=== PATIENT | female | born 1950 | race Caucasian/White ===

== ENCOUNTER → 2016-09-17 | Outpatient (CLI) | payer MEDICARE, BC ==
--- NOTE | 2016-09-20 07:42 | MM ---
Reason for exam: additional evaluation requested from prior study. Last mammogram was performed 1 year ago. History: Patient is postmenopausal, has history of other cancer at age 53, and is nulliparous. Family history of breast cancer in maternal aunt at age 60, breast cancer in maternal cousin at age 34, and breast cancer in sister at age 52. Benign excisional biopsy of the right breast, 2015. Benign excisional biopsy of the right breast, May 2014. Benign ultrasound-guided core biopsy of the left breast, 2012. Took estrogen for 29 years beginning at age 30. Physical Findings: Nurse Summary: 1cm nodule in the left breast at 10/1 o'clock (nurse mm). MG 3D Diag Mammo W/Cad KATINA Bilateral CC and MLO view(s) were taken. Prior study comparison: September 10, 2015, bilateral MG 3d diag mammo w/cad KATINA. February 18, 2015, bilateral MG 3d diag mammo w/cad KATINA. The breast tissue is heterogeneously dense. This may lower the sensitivity of mammography. Finding: There are regional calcifications in the left breast. There is a chronic nodularity in the right breast. No significant changes in finding since September 10, 2015 and February 18, 2015. These results were verbally communicated with the patient and result sheet given to the patient on 09/17/16. ASSESSMENT: Incomplete: need additional imaging evaluation, BI-RAD 0 RECOMMENDATION: Ultrasound of both breasts.
--- NOTE | 2016-09-20 07:46 | USB ---
Reason for exam: additional evaluation requested from abnormal screening. History: Patient is postmenopausal, has history of other cancer at age 53, and is nulliparous. Family history of breast cancer in maternal aunt at age 60, breast cancer in maternal cousin at age 34, and breast cancer in sister at age 52. Benign excisional biopsy of the right breast, 2016. Benign excisional biopsy of the right breast, May 2014. Benign ultrasound-guided core biopsy of the left breast, 2012. Took estrogen for 29 years beginning at age 30. US Breast Limited BILAT Right breast ultrasound demonstrates at 4mm cystic lesion at 12 o'clock, a 3mm cystic lesion at 6 o'clock and a 18 x 20 x 17mm strongly shadowing tissue at 7 o'clock for which a biopsy is recommended. Left breast ultrasound demonstrates a 21 x 9 x 23mm lipoma at 9 o'clock, a 6 x 4 x 4mm lesion too small to characterize at 10 o'clock, a 4mm lesion too small to characterize at 11 o'clock and a 6 x 6 x 7mm cystic lesion at 1-2 o'clock. These results were verbally communicated with the patient and result sheet given to the patient on 09/17/16. ASSESSMENT: Suspicious, BI-RAD 4 RECOMMENDATION: Ultrasound core biopsy of the right breast. Called Dr. Johnson with mammographic findings and has scheduled an appointment for the patient for 09/21/16 at 1:[address] Murphy. PRELIMINARY REPORT CALLED AND FAXED TO DR. MURPHY ON 09/20/16 AT 300/TP.
== END | disposition home or self-care (01) ==
LOC: RADMAMWWP 12:46
PROVIDERS: ATTEND Family Medicine
DX: R92.8 Other abnormal and inconclusive findings on diagnostic imaging of breast (principal)
CPT/HCPCS: 76642; G0204; G0279

== ENCOUNTER 2016-09-19 09:42 | Emergency (ER) | payer MEDICARE, BC ==
[2016-09-19 10:00] VITALS: RESP 18; TEMP 97.9
[2016-09-19] MEDS ORDERED: HYDROcodone/APAP 5-325MG 1 EACH TAB PO STA (10:51)
[2016-09-19] MEDS ORDERED: KETOROLAC 60 MG/2 ML VIAL IM STA (10:52)
--- NOTE | 2016-09-19 11:00 | ED ---
General Adult HPI - General Chief complaint: Extremity Injury, Lower Stated complaint: left hip pain Time Seen by Provider: 09/19/16 10:35 Source: patient, RN notes reviewed, old records reviewed Mode of arrival: wheelchair Limitations: no limitations - History of Present Illness Initial comments: This is a 58-year-old female ER for evaluation of hip pain. Patient left hip pain. If his strong history of arthritis, has had bilateral hips replaced. Neither deny this hospital. Patient has no follow-up with orthopedics at this time. Patient states the change of weather he does have full range of motion fever - Related Data Home Medications Medication Instructions Recorded Confirmed Aspirin 81 mg PO DAILY 09/19/16 09/19/16 Atorvastatin Calcium [Lipitor] 20 mg PO HS 09/19/16 09/19/16 Biotin 10 mg PO DAILY 09/19/16 09/19/16 Cetirizine HCl [Zyrtec] 10 mg PO DAILY 09/19/16 09/19/16 Cholecalciferol [Vitamin D3] 5,000 unit PO DAILY 09/19/16 09/19/16 Cyanocobalamin [Vitamin B-12] 500 mcg PO BID 09/19/16 09/19/16 Krill/[place]-3/Dha/Epa/Lipids 1 cap PO DAILY 09/19/16 09/19/16 [Krill Oil 300 mg Softgel] Losartan/Hydrochlorothiazide 1 tab PO DAILY 09/19/16 09/19/16 [Losartan-Hctz 100-25 mg Tab] Metoprolol Succinate [Toprol XL] 200 mg PO DAILY 09/19/16 09/19/16 Pioglitazone [Actos] 30 mg PO DAILY 09/19/16 09/19/16 Prazosin [Minipress] 1 mg PO BID 09/19/16 09/19/16 metFORMIN HCL [Metformin HCl] 500 mg PO BID 09/19/16 09/19/16 Previous Rx's Medication Instructions Recorded HYDROcodone/APAP 5-325MG [[place] 1 tab PO Q6HR PRN #30 tab 09/19/16 5-325] Allergies Allergy/AdvReac Type Severity Reaction Status Date / Time Penicillins Allergy Swelling Verified 09/19/16 10:20 Review of Systems ROS Statement: Those systems with pertinent positive or pertinent negative responses have been documented in the HPI. ROS Other: All systems not noted in ROS Statement are negative. Past Medical History Past Medical History: Diabetes Mellitus, GERD/Reflux, Hypertension History of Any Multi-Drug Resistant Organisms: None Reported Past Surgical History: Hysterectomy, Joint Replacement Additional Past Surgical History / Comment(s): right and left hip, right breast lumpectomy (benign) Past Psychological History: No Psychological Hx Reported Smoking Status: Never smoker Past Alcohol Use History: None Reported Past Drug Use History: None Reported General Exam Limitations: no limitations General appearance: alert, in no apparent distress Head exam: Present: atraumatic, normocephalic, normal inspection Eye exam: Present: normal appearance, PERRL, EOMI. Absent: scleral icterus, conjunctival injection, periorbital swelling ENT exam: Present: normal exam, mucous membranes moist Neck exam: Present: normal inspection. Absent: tenderness, meningismus, lymphadenopathy Respiratory exam: Present: normal lung sounds bilaterally. Absent: respiratory distress, wheezes, rales, rhonchi, stridor Cardiovascular Exam: Present: regular rate, normal rhythm, normal heart sounds. Absent: systolic murmur, diastolic murmur, rubs, gallop, clicks GI/Abdominal exam: Present: soft, normal bowel sounds. Absent: distended, tenderness, guarding, rebound, rigid Extremities exam: Present: normal inspection, full ROM, normal capillary refill. Absent: tenderness, pedal edema, joint swelling, calf tenderness Back exam: Present: normal inspection Neurological exam: Present: alert, oriented X3, CN II-XII intact Psychiatric exam: Present: normal affect, normal mood Skin exam: Present: warm, dry, intact, normal color. Absent: rash Course Vital Signs 09/19/16 09/19/16 09:57 12:08 Temperature 97.9 F 97.9 F Pulse Rate 84 79 Respiratory 18 18 Rate Blood Pressure 135/62 149/66 O2 Sat by Pulse 96 97 Oximetry - Reevaluation(s) Reevaluation #1: 09/19/16 12:54 At this point patient's pain is controlled, discussed the patient to continue follow-up appointment with of orthopedics this Tuesday. Medical Decision Making - Medical Decision Making 66 female here for evaluation of hip pain, she has history of bilateral hip pain , history of arthritis. Both left and right hip pain at this time. No trauma. No fevers. Patient has negative x-ray, will follow-up with orthopedics as scheduled on Tuesday Disposition Clinical Impression: Arthritis of left hip, S/P hip replacement Disposition: HOME SELF-CARE Condition: Good Instructions: Arthralgia (ED), Hip Pain (ED) Prescriptions: HYDROcodone/APAP 5-325MG [[place] 5-325] 1 tab PO Q6HR PRN #30 tab PRN Reason: Pain Referrals: Anupama Johnson MD [Primary Care Provider] - 1-2 days
--- NOTE | 2016-09-19 11:13 | XR ---
EXAMINATION TYPE: XR Hip Complete LT DATE OF EXAM: 09/19/2016 CLINICAL HISTORY: Progressive left hip pain. TECHNIQUE: AP and frogleg views of the left hip are obtained. COMPARISON: None. FINDINGS: There is no acute fracture/dislocation evident in the left hip. Metallic artifact from lef t hip arthroplasty is satisfactory in position. Slightly more prominent lucency superior lateral aspe ct of acetabulum noted measuring up to 6 mm in thickness. Femoral component shows no suspicious surro unding lucency. Left-sided pelvic phleboliths are noted. IMPRESSION: There is no acute fracture or dislocation in the left hip. Asymmetric superolateral acet abular lucency, cannot exclude loosening. Correlate with old outside postoperative films advised to s ee if this is new finding.
[2016-09-19 12:10] VITALS: BP 149/66; PULSE 79
== END 2016-09-19 12:07 | disposition home or self-care (01) ==
LOC: EC 09:42
DX: M13.852 Other specified arthritis, left hip (principal); E11.9 Type 2 diabetes mellitus without complications; K21.9 Gastro-esophageal reflux disease without esophagitis; I10 Essential (primary) hypertension; Z79.84 Long term (current) use of oral hypoglycemic drugs; Z79.82 Long term (current) use of aspirin; Z79.899 Other long term (current) drug therapy; Z88.0 Allergy status to penicillin; Z96.643 Presence of artificial hip joint, bilateral
CPT/HCPCS: 73502; 99283; 96372; J1885

== ENCOUNTER → 2017-04-25 | Outpatient (CLI) | payer MEDICARE, BC ==
--- NOTE | 2017-04-25 11:17 | MM ---
Reason for exam: additional evaluation requested from prior study. Last mammogram was performed 7 months ago. History: Patient is postmenopausal, has history of other cancer at age 53, and is nulliparous. Family history of breast cancer in maternal aunt at age 60, breast cancer in maternal cousin at age 34, and breast cancer in sister at age 52. Benign excisional biopsy of the right breast, 2015. Benign excisional biopsy of the right breast, May 2014. Benign ultrasound-guided core biopsy of the left breast, 2012. Took estrogen for 29 years beginning at age 30. Physical Findings: Nurse did not find any significant physical abnormalities on exam. MG 3D Diag Mammo W/Cad RT CC and MLO view(s) were taken of the right breast. Prior study comparison: September 17, 2016, bilateral MG 3d diag mammo w/cad KATINA. September 10, 2015, bilateral MG 3d diag mammo w/cad KATINA. The breast tissue is heterogeneously dense. This may lower the sensitivity of mammography. There is chronic nodularity in the right breast. New 6 o'clock central microclip. Patient reports biopsy in Dr. Murphy's office 6 months ago. These results were verbally communicated with the patient and result sheet given to the patient on 04/25/17. ASSESSMENT: Incomplete: need additional imaging evaluation, BI-RAD 0 RECOMMENDATION: Ultrasound of the right breast. (right 5-9 o'clock, attention 7 o'clock)
--- NOTE | 2017-04-25 11:20 | USB ---
Reason for exam: additional evaluation requested from abnormal screening. History: Patient is postmenopausal, has history of other cancer at age 53, and is nulliparous. Family history of breast cancer in maternal aunt at age 60, breast cancer in maternal cousin at age 34, and breast cancer in sister at age 52. Benign excisional biopsy of the right breast, 2016. Benign excisional biopsy of the right breast, May 2014. Benign ultrasound-guided core biopsy of the left breast, 2012. Took estrogen for 29 years beginning at age 30. US Breast Limited RT Right breast ultrasound demonstrates a 0.3 x 0.3 x 0.3cm cystic lesion at 6 o'clock and a 1.8 x 1.1 x 1.0cm shadowing lesion at 7 o'clock. This may represent scar but given that no biopsy clip is clearly appreciated by ultrasound, we are unable to determine if this area was biopsied as outside images are not available and the patient indicates that a 6 o'clock site was biopsied. These results were verbally communicated with the patient and result sheet given to the patient on 04/25/17. ASSESSMENT: Suspicious, BI-RAD 4 RECOMMENDATION: Ultrasound core biopsy of the right breast. Called Dr. Johnson with mammographic findings and has scheduled an appointment for the patient for 05/10/17 at 3:[address] Mcbride. Biopsy scheduled for 05/06/17 at 11:30. PRELIMINARY REPORT CALLED AND FAXED TO DR. MCBRIDE ON 04/25/17. [facility]
== END | disposition home or self-care (01) ==
LOC: RADMAMWWP 08:50
PROVIDERS: ATTEND Family Medicine
DX: R92.8 Other abnormal and inconclusive findings on diagnostic imaging of breast (principal)
CPT/HCPCS: 77065; 76642; G0279

== ENCOUNTER → 2017-05-06 | Day surgery (SDC) | payer MEDICARE, BC ==
[2017-05-06 12:10] VITALS: BP 127/77; PULSE 100; RESP 16; TEMP 98.5; BMI 28.3
--- NOTE | 2017-05-06 14:11 | USB ---
EXAMINATION TYPE: US biopsy breast VAD RT, MG diagnostic mammo RT wo CAD DATE OF EXAM: 05/06/2017 CLINICAL HISTORY: R92.8 prev abnormal mammogram and ultrasound. History of excisional biopsy. Possible scar tissue but no distinct clip. TECHNIQUE: Ultrasound guided core biopsy of right breast with clip placement and follow-up two-view mammogram. COMPARISON: Recent mammogram and ultrasound April 25, 2017 reports. FINDINGS: Exam is slightly suboptimal as at time of procedure prior images were not available for direct comparison. The procedure of ultrasound guided core biopsy was explained to the patient. Benefits, alternatives, and risks were discussed. An informed consent was then obtained. The patient was placed in supine positioning for imaging and for the procedure. The overlying skin was prepped and draped in usual sterile fashion. Lidocaine buffered with bicarbonate was used as anesthetic into the skin and subcutaneous tissue. Lidocaine with epinephrine is used as anesthetic into the deeper tissue in the right breast. Under ultrasound guidance, a 12-gauge vacuum assisted biopsy gun device was used to obtain 4 core samples. Following this, a biopsy clip was left in lesion. The patient tolerated the procedure well without any immediate complication. The patient was kept in the radiology department for short stay after the procedure and then discharged home in stable condition. Postprocedure mammogram shows successful deployment of clip which is felt to correlate to the area of distortion on mammogram. IMPRESSION: Successful, uncomplicated ultrasound guided core biopsy of area of concern in the right breast, full pathology results to follow. Low to intermediate index of suspicion at time of procedure favor scar. Pathology Results: Benign BREAST, RIGHT, SEVEN O'CLOCK, CORE BIOPSY: FIBROCYSTIC CHANGES INCLUDING CYSTS , FIBROSIS, ADENOSIS, AND MILD USUAL TYPE DUCTAL HYPERPLASIA. ADDENDUM REPORT Comment It is noted that there is also focal scar and fat necrosis present. Recommendation Follow up ultrasound of the right breast in 6 months. FREDERICK
== END ==
LOC: RADUSWWP 10:12
PROVIDERS: ATTEND Surgery
DX: N60.31 Fibrosclerosis of right breast (principal); N60.21 Fibroadenosis of right breast; N60.91 Unspecified benign mammary dysplasia of right breast; R92.8 Other abnormal and inconclusive findings on diagnostic imaging of breast; Z88.0 Allergy status to penicillin
CPT/HCPCS: 88305; 77065; 19083; A4648; J2001

== ENCOUNTER → 2017-09-21 | Outpatient (CLI) | payer MEDICARE, BC ==
--- NOTE | 2017-09-22 11:28 | MM ---
Reason for exam: follow-up at short interval from prior study. Last mammogram was performed 5 months ago. History: Patient is postmenopausal, has history of other cancer at age 53, and is nulliparous. Family history of breast cancer in maternal aunt at age 60, breast cancer in maternal cousin at age 34, and breast cancer in sister at age 52. Benign US biopsy breast VAD RT of the right breast, May 06, 2017. Benign excisional biopsy of the right breast, 2015. Benign excisional biopsy of the right breast, May 2014. Benign ultrasound-guided core biopsy of the left breast, 2012. Took estrogen for 29 years beginning at age 30. Physical Findings: Nurse Summary: less than 0.5cm nodule in the left breast at 2-3 o'clock (nurse kp). MG 3D Diag Mammo W/Cad KATINA Bilateral CC and MLO view(s) were taken. Prior study comparison: May 06, 2017, right breast MG diagnostic mammo RT wo CAD. April 25, 2017, right breast MG 3d diag mammo w/cad RT. The breast tissue is heterogeneously dense. This may lower the sensitivity of mammography. Benign appearing bilateral calcifications. Post surgical change in the right breast. No suspicious abnormality in the right breast. Left focal asymmetry deep to the BB at middle depth. No significant new findings when compared with previous films. These results were verbally communicated with the patient and result sheet given to the patient on 09/21/17. ASSESSMENT: Incomplete: need additional imaging evaluation, BI-RAD 0 RECOMMENDATION: Ultrasound of the left breast. (palpable)
--- NOTE | 2017-09-22 11:34 | USB ---
Reason for exam: follow-up at short interval from prior study. History: Patient is postmenopausal, has history of other cancer at age 53, and is nulliparous. Family history of breast cancer in maternal aunt at age 60, breast cancer in maternal cousin at age 34, and breast cancer in sister at age 52. Benign US biopsy breast VAD RT of the right breast, May 06, 2017. Benign excisional biopsy of the right breast, 2015. Benign excisional biopsy of the right breast, May 2014. Benign ultrasound-guided core biopsy of the left breast, 2012. Took estrogen for 29 years beginning at age 30. US Breast Limited BILAT Right complete breast ultrasound includes all four quadrants, the retroareolar region and axilla. Finding demonstrates a 0.5 x 0.3 x 0.7cm cystic cluster at 12 o'clock, a 0.5 x 0.4 x 0.5cm cystic lesion at 3 o'clock, a 0.3 x 0.3 x 0.3cm cystic lesion at 6 o'clock and a 0.4 x 0.3 x 0.5cm cystic lesion at 9 o'clock. Left limited breast ultrasound including focal area of concern, retroareolar and axilla demonstrates a 1.8 x 0.9 x 0.9cm shadowing lesion at 7 o'clock, 0.7 x 0.6 x 0.7cm cystic lesion at 1 o'clock and a 1.1 x 0.6 x 0.8cm hypoechoic, shadowing, suspicious, irregular margins, solid appearing mass at 2 o'clock. These results were verbally communicated with the patient and result sheet given to the patient on 09/21/17. ASSESSMENT: Suspicious, BI-RAD 4 RECOMMENDATION: Ultrasound core biopsy of the left breast. (2 o'clock) Called Dr. Johnson with mammographic findings and has scheduled an appointment for the patient for 09/29/17 at 2:[address] Murphy. PRELIMINARY REPORT CALLED AND FAXED TO DR. MURPHY ON 09/22/17.
== END | disposition home or self-care (01) ==
LOC: RADMAMWWP 13:27
PROVIDERS: ATTEND Family Medicine
DX: R92.8 Other abnormal and inconclusive findings on diagnostic imaging of breast (principal)
CPT/HCPCS: 77066; 76642; G0279; 77062

== ENCOUNTER 2017-10-24 06:35 | Day surgery (SDC) | payer MEDICARE, BC ==
[2017-10-19 11:41] VITALS: BMI 28.3
[~2017-10-24 06:35] MED LIST: DEXAMETHASONE SOD PHOSPHATE 10 MG/ML 1 ML VIAL IV ONE; LACTATED RINGERS 1,000 ML IV SCH; LIDOCAINE 1% 20 ML VIAL (10MG/ML) FOR IV START INTRADERMA PRN; ONDANSETRON 4 MG/2 ML VIAL IVP ONE; Pre Op ABX Message 1 EACH MISC MISCELLANE ONE
[2017-10-24 07:43] LABS: Glucose,Whole Blood 155 mg/dL (75-99)
[2017-10-24] MEDS ORDERED: ALPRAZolam 0.25 MG TAB ONE (08:29)
[2017-10-24] MEDS ORDERED: ALPRAZolam 0.25 MG TAB PO ONE (08:31)
[2017-10-24] MEDS ORDERED: LIDOCAINE 1% (PF) 10 MG/ML (30 ML SDV) SQ ONE (09:05)
[2017-10-24] MEDS ORDERED: fentaNYL (PF) 50 MCG/ML 2 ML AMP ONE (09:53)
[2017-10-24] MEDS ORDERED: LIDOCAINE 1% INJ 10MG/ML (20 ML MDV) ONE (09:53)
[2017-10-24] MEDS ORDERED: PROPOFOL 10 MG/ML 20 ML VIAL IV ONE (09:53)
[2017-10-24] MEDS ORDERED: SUCCINYLCHOLINE CHLORIDE 100 MG/5 ML SYR IV ONE (09:53)
--- NOTE | 2017-10-24 09:54 | NM ---
EXAMINATION TYPE: NM sentinel node injection DATE OF EXAM: 10/24/2017 COMPARISON: NONE HISTORY: 67-year-old female new diagnosis of left breast cancer. TECHNIQUE AND FINDINGS: The procedure of sentinel lymph node injection was explained to the patient. The benefits, alternatives, and risks were discussed. An informed consent was then obtained. Overlying skin is cleaned with sterile alcohol. Following this, 516 uCi Tc99m Tilmanocept was inject ed at a single site, upper outer left periareolar region, intradermally. The patient tolerated the procedure well without any immediate complication. The procedure was perfo rmed in the preoperative area where the patient remained. Patient then taken to surgery for surgical procedure what is presumed intraoperative gamma probe will be used for sentinel lymph node detection. IMPRESSION: Successful left breast radiotracer injection for sentinel node localization as above.
[2017-10-24] MEDS ORDERED: BUPIVACAINE (PF) 0.5% 30 ML VIAL SQ ONE ×2 (10:15)
[2017-10-24] MEDS ORDERED: LIDOCAINE 1%-EPI 1:100,000 30 ML VIAL SQ ONE ×2 (10:15)
--- NOTE | 2017-10-24 11:18 | P.OP ---
Date of Procedure: 10/24/17 Preoperative Diagnosis: Breast cancer left breast Postoperative Diagnosis: Breast cancer left breast Procedure(s) Performed: Left lumpectomy with sentinel lymph node biopsy Anesthesia: ANA Surgeon: Anupama Murphy Estimated Blood Loss (ml): 20 Pathology: other Condition: stable Disposition: PACU Indications for Procedure: Patient had outpatient patient core biopsy showing infiltrating ductal carcinoma Operative Findings: [place] lymph node was negative for metastatic disease Description of Procedure: The patient's taken the operative suite where she is prepped and draped in the usual sterile manner under general endotracheal anesthetic. A neoprobe was used to identify the site for the sentinel lymph node at the skin level. Local anesthetic was then instilled into the skin in the axilla. A small skin incision was made. Dissection was carried out to a lymph node in this is dissected free. It showed a good ex vivo count and was sent for frozen section. There was an additional area of low to moderate, with the probe. This tissue is dissected free and there is a small lymphatic duct dissected free. The residual count in the axilla after that was removed was negligible. A sponge was tucked in the axilla. Incision was covered. Local anesthetic was then instilled in the skin and subcutaneous tissue on the breast. A circumareolar incision was made. Dissection was made around the end of the guidewire. The guidewire was then brought through the incision. The breast tissue is dissected down to the anterior chest wall and removed. A small amount of breast tissue is still at the pectoralis muscle so that was removed. Was tacked to the posterior or deep portion of the specimen. Specimen was tagged and sent for permanent sections. Radiology identified ultrasound guided biopsy so did not want the specimen sent for mammography. Small bleeding points were then controlled with electrocautery. The biopsy cavity was marked with ligaclips. The skin was then closed with 4-0 Vicryl in a subcuticular manner. Steri-Strips were applied. Gloves and instruments were changed. The axilla was reexamined. Skin was closed with 4-0 Vicryl in a subcuticular manner. Steri-Strips and dressings were applied. She tolerated the procedure without difficulty and was taken recovery room in satisfactory condition. According to or personnel, ARE correct. Plan - Discharge Summary New Discharge Prescriptions: New traMADol HCl [Ultram] 50 - 100 mg PO Q4HR PRN 3 Days #18 tab PRN Reason: Pain No Action Cyanocobalamin [Vitamin B-12] 500 mcg PO BID Cholecalciferol [Vitamin D3] 1,000 mg PO BID Aspirin 81 mg PO DAILY Metoprolol Succinate [Toprol XL] 200 mg PO DAILY Cetirizine HCl [Zyrtec] 10 mg PO DAILY Atorvastatin Calcium [Lipitor] 20 mg PO HS metFORMIN HCL [Metformin HCl] 1,000 mg PO DAILY Losartan/Hydrochlorothiazide [Losartan-Hctz 100-25 mg Tab] 1 tab PO DAILY Prazosin [Minipress] 1 mg PO BID Omeprazole Magnesium [Prilosec OTC] 20 mg PO DAILY PRN PRN Reason: Heartburn diphenhydrAMINE [Benadryl] 25 mg PO DAILY PRN PRN Reason: Allergy Symptoms Biotin 300 mcg PO DAILY Ibuprofen 800 mg PO BID PRN PRN Reason: Pain Insulin Aspart Protam & Aspart [NovoLOG MIX 70-30 Flexpen] 35 unit SQ W/ SUPPER Insulin Aspart Protam & Aspart [NovoLOG MIX 70-30 Flexpen] 40 unit SQ QAM Cristian Red 500 mg PO DAILY Discharge Medication List Aspirin 81 mg PO DAILY 09/19/16 [History] Atorvastatin Calcium [Lipitor] 20 mg PO HS 09/19/16 [History] Cetirizine HCl [Zyrtec] 10 mg PO DAILY 09/19/16 [History] Cholecalciferol [Vitamin D3] 1,000 mg PO BID 09/19/16 [History] Cyanocobalamin [Vitamin B-12] 500 mcg PO BID 09/19/16 [History] Losartan/Hydrochlorothiazide [Losartan-Hctz 100-25 mg Tab] 1 tab PO DAILY [History] Metoprolol Succinate [Toprol XL] 200 mg PO DAILY 09/19/16 [History] metFORMIN HCL [Metformin HCl] 1,000 mg PO DAILY 09/19/16 [History] Omeprazole Magnesium [Prilosec OTC] 20 mg PO DAILY PRN 04/29/17 [History] Prazosin [Minipress] 1 mg PO BID 04/29/17 [History] Biotin 300 mcg PO DAILY 10/19/17 [History] Ibuprofen 800 mg PO BID PRN 10/19/17 [History] Insulin Aspart Protam & Aspart [NovoLOG MIX 70-30 Flexpen] 35 unit SQ W/SUPPER 10/19/17 [History] Insulin Aspart Protam & Aspart [NovoLOG MIX 70-30 Flexpen] 40 unit SQ QAM [History] Cristian Red 500 mg PO DAILY 10/19/17 [History] diphenhydrAMINE [Benadryl] 25 mg PO DAILY PRN 10/19/17 [History] traMADol HCl [Ultram] 50 - 100 mg PO Q4HR PRN 3 Days #18 tab 10/24/17 [Rx] Follow up Appointment(s)/Referral(s): Anupama Murphy DO [Doctor of Osteopathic Medicine] - 1 Week Activity/Diet/Wound Care/Special Instructions: Were a well supporting bra. Ice to the incisions for 24-48 hours. Keep the dressings on until Tuesday then they may be removed and you may shower. No driving while taking pain pills. You could take Tylenol or Motrin along with or instead of the pain pills. Call if questions or concerns.
[2017-10-24 11:21] VITALS: TEMP 96.8
[2017-10-24] MEDS: HYDROmorphone 0.5 MG/0.5 ML SYRINGE IVP PRN ×2 (11:34→11:38)
[2017-10-24 12:00] LABS: Glucose,Whole Blood 203 mg/dL (75-99)
[2017-10-24 12:04] VITALS: RESP 16
[2017-10-24] MEDS ORDERED: traMADol 50 MG TAB PO ONE (12:30)
[2017-10-24 13:09] VITALS: BP 136/77; PULSE 88
--- NOTE | 2017-10-24 13:31 | USB ---
EXAMINATION TYPE: US breast localization LT DATE OF EXAM: 10/24/2017 CLINICAL HISTORY: 67-year-old female with biopsy-proven left breast carcinoma at the 2:00 position . TECHNIQUE: Needle localization with wire placement and surgical excision of area of concern in the left breast under ultrasound guidance. COMPARISON: 09/21/2017 FINDINGS: The procedure of needle localization with wire placement and than surgical excision was explained to the patient. Benefits, alternatives, and risks were discussed. An informed consent was then obtained. The shortest pathway for procedure was chosen. Shortest pathway was a lateral approach. The overlying skin was prepped and draped in usual sterile fashion. Lidocaine buffered with bicarbonate was used as anesthetic into the skin and subcutaneous tissue up to the level of area of concern. Ultrasound was utilized to localize the 2:00 breast mass. A 5 cm Kopans needle was used. It was placed under ultrasound guidance through the mass. The wire was deployed 1.0 to 1.5 cm beyond the center of the lesion, and per surgeon request, the needle was readvanced to the tip of the wire. The skin surface to needle/wire tip is 4.9 cm. Needle/wire tip to the center of the lesion is 1.3 cm. The needle and wire were secured with a protective cup placed around the hub of the needle. The patient tolerated the procedure well without any immediate complication. The patient was kept in the radiology department for short stay after the procedure and then taken to surgery for surgical excision. No specimen is made available for either mammogram or ultrasound. IMPRESSION: Uncomplicated needle localization with wire placement and surgical excision of biopsy-proven 2:00 left breast carcinoma. No specimen was made available for follow-up imaging. Full pathology results to follow. Pathology Results: Malignant A. SENTINEL LYMPH NODE, BIOPSY: Negative for metastatic adenocarcinoma. Immunoperoxidase studies for cytokeratin 7 and epithelial membrane antigen confirm that the lymph node is negative for metastatic disease. Adequate stain performed is documented by control sections. B. LEFT BREAST, LUMPECTOMY: 8 mm in greatest dimension, Solange grade 2 infiltrating ductal carcinoma measuring approximately 7 mm from the blue inked superficial margin and 9 mm from the green inked inferior (6:00) margin. Surrounding breast parenchyma shows florid ductal hyperplasia of the usual type and an intraductal papilloma approximately 1 cm from the blue inked margin. Please see Cancer Case Summary. Recommendation Oncologic management. MTDD
== END 2017-10-24 13:20 | disposition home or self-care (01) ==
LOC: OR 06:35
PROVIDERS: ATTEND Surgery
DX: C50.912 Malignant neoplasm of unspecified site of left female breast (principal); N60.92 Unspecified benign mammary dysplasia of left breast; D24.2 Benign neoplasm of left breast; I10 Essential (primary) hypertension; E78.00 Pure hypercholesterolemia, unspecified; Z79.84 Long term (current) use of oral hypoglycemic drugs; E11.9 Type 2 diabetes mellitus without complications; K21.9 Gastro-esophageal reflux disease without esophagitis; M19.90 Unspecified osteoarthritis, unspecified site; Z85.828 Personal history of other malignant neoplasm of skin; Z79.2 Long term (current) use of antibiotics; Z79.82 Long term (current) use of aspirin; Z79.52 Long term (current) use of systemic steroids; Z79.899 Other long term (current) drug therapy; Z88.0 Allergy status to penicillin
CPT/HCPCS: 19301; 38525; 88342; 88331; 88307; 88341; 19285; 38792; A9520; J1100; J2405; J2001 ×2; J3010; J0330; J2704; J1170

== ENCOUNTER → 2018-03-28 | Outpatient (CLI) | payer MEDICARE, BC ==
--- NOTE | 2018-03-28 12:28 | ECHOF ---
Referral Reason:c50.412 / Z01.818 - Breast Cancer / Chemo MEASUREMENTS -------- HEIGHT: 160.0 cm WEIGHT: 74.8 kg BP: RVIDd: 2.6 cm (< 3.3) IVSd: 1.2 cm (0.6 - 1.1) LVIDd: 3.6 cm (3.9 - 5.3) LVPWd: 1.5 cm (0.6 - 1.1) IVSs: 1.3 cm LVIDs: 2.9 cm LVPWs: 1.2 cm LA Diam: 4.3 cm (2.7 - 3.8) LAESV Index (A-L): 32.48 ml/m Ao Diam: 2.8 cm (2.0 - 3.7) AV Cusp: 1.4 cm (1.5 - 2.6) LA Diam: 3.9 cm (2.7 - 3.8) MV EXCURSION: 15.271 mm (> 18.000) MV EF SLOPE: 144 mm/s (70 - 150) EPSS: 0.5 cm MV E Red: 0.80 m/s MV DecT: 208 ms MV A Red: 0.75 m/s MV E/A Ratio: 1.07 RAP: 5.00 mmHg RVSP: 31.86 mmHg FINDINGS -------- This was a technically adequate study. The left ventricular size is normal. There is mild concentric left ventricular hypertrophy. Overa ll left ventricular systolic function is normal with, an EF between 60 - 65 %. The right ventricle is normal in size. The left atrium is mildly dilated. LA is midly dilated 29-33ml/m2. The right atrial size is normal. There is mild aortic valve sclerosis. There is no evidence of aortic regurgitation. Mild mitral annular calcification present. Udlh-[id number]-qrvozemw mitral regurgitation is present. Mild tricuspid regurgitation present. There is no evidence of pulmonary hypertension. The right v entricular systolic pressure, as measured by Doppler, is 31.86mmHg. There is no pulmonic regurgitation present. There is a trivial pericardial effusion present. CONCLUSIONS -------- 1. The left ventricular size is normal. 2. There is mild concentric left ventricular hypertrophy. 3. Overall left ventricular systolic function is normal with, an EF between 60 - 65 %. 4. The right ventricle is normal in size. 5. The left atrium is mildly dilated. 6. LA is midly dilated 29-33ml/m2. 7. The right atrial size is normal. 8. There is mild aortic valve sclerosis. 9. Mild mitral annular calcification present. 10. Iliy-us-nnorqbiy mitral regurgitation is present. 11. Mild tricuspid regurgitation present. 12. There is no evidence of pulmonary hypertension. 13. The right ventricular systolic pressure, as measured by Doppler, is 31.86mmHg. 14. There is no pulmonic regurgitation present. 15. There is a trivial pericardial effusion present. GEOTECHNICAL OPERATING ENGINEER: Arlette Felipe RDCS
== END | disposition home or self-care (01) ==
LOC: RADECHMAIN 08:07
PROVIDERS: ATTEND Internal Medicine Hematology & Oncology
DX: Z01.818 Encounter for other preprocedural examination (principal); I08.1 Rheumatic disorders of both mitral and tricuspid valves; I31.3 Pericardial effusion (noninflammatory); C50.412 Malignant neoplasm of upper-outer quadrant of left female breast
CPT/HCPCS: 93306

== ENCOUNTER → 2018-06-28 | Outpatient (CLI) | payer MEDICARE, BC ==
--- NOTE | 2018-06-29 09:28 | ECHOF ---
Referral Reason:C50.412 Breast CA, Z01.818 Chemo MEASUREMENTS -------- HEIGHT: 160.0 cm WEIGHT: 74.8 kg BP: 130/87 RVIDd: 2.2 cm (< 3.3) IVSd: 1.1 cm (0.6 - 1.1) LVIDd: 3.2 cm (3.9 - 5.3) LVPWd: 1.1 cm (0.6 - 1.1) IVSs: 1.4 cm LVIDs: 2.1 cm LVPWs: 1.7 cm LA Diam: 3.0 cm (2.7 - 3.8) Ao Diam: 2.7 cm (2.0 - 3.7) AV Cusp: 1.9 cm (1.5 - 2.6) EPSS: 0.4 cm MV E Red: 0.85 m/s MV DecT: 257 ms MV A Rde: 1.02 m/s MV E/A Ratio: 0.83 RAP: 5.00 mmHg RVSP: 23.34 mmHg MV EF SLOPE: 48.69 mm/s (70 - 150) MV EXCURSION: 0.86 cm (> 18.000) FINDINGS -------- Sinus rhythm. This was a technically adequate study. The left ventricular size is normal. There is borderline concentric left ventricular hypertrophy. Overall left ventricular systolic function is normal with, an EF between 60 - 65 %. The right ventricle is normal in size. Normal LA size by volume 22+/-6 ml/m2. The right atrium is normal in size. There is mild aortic valve sclerosis. Mild mitral annular calcification present. Mild tricuspid regurgitation present. Right ventricular systolic pressure is normal at < 35 mmHg. Trace/mild (physiologic) pulmonic regurgitation. The aortic root size is normal. Normal inferior vena cava with normal inspiratory collapse consistent with estimated right atrial pre ssure of 5 mmHg. There is a trivial pericardial effusion present. CONCLUSIONS -------- 1. Sinus rhythm. 2. This was a technically adequate study. 3. The left ventricular size is normal. 4. There is borderline concentric left ventricular hypertrophy. 5. Overall left ventricular systolic function is normal with, an EF between 60 - 65 %. 6. The right ventricle is normal in size. 7. Normal LA size by volume 22+/-6 ml/m2. 8. The right atrium is normal in size. 9. There is mild aortic valve sclerosis. 10. Mild mitral annular calcification present. 11. Mild tricuspid regurgitation present. 12. Right ventricular systolic pressure is normal at < 35 mmHg. 13. Trace/mild (physiologic) pulmonic regurgitation. 14. The aortic root size is normal. 15. Normal inferior vena cava with normal inspiratory collapse consistent with estimated right atrial pressure of 5 mmHg. 16. There is a trivial pericardial effusion present. SMALL PACKAGE AND BUNDLE SORTER CLERK: ANEL Hernandez
== END ==
LOC: RADECHMAIN 12:44
PROVIDERS: ATTEND Internal Medicine Hematology & Oncology
DX: Z01.818 Encounter for other preprocedural examination (principal); I35.8 Other nonrheumatic aortic valve disorders; I07.1 Rheumatic tricuspid insufficiency; I37.1 Nonrheumatic pulmonary valve insufficiency
CPT/HCPCS: 93306

== ENCOUNTER → 2018-08-22 | Outpatient (CLI) | payer MEDICARE, BC ==
--- NOTE | 2018-08-22 11:51 | BD ---
EXAMINATION TYPE: Axial Bone Density DATE OF EXAM: 08/22/2018 COMPARISON: NONE CLINICAL HISTORY: post menopausal Height: 5'3 Weight: 167 FRAX RISK QUESTIONS: Secondary Osteoporosis: 3. Menopause before 45: y RISK FACTORS HISTORY OF: Surgery to /Hip(right/left)/: total hips When: 2004, 2011, 2016 Postmenopausal woman: y MEDICATIONS: Additional Medications: blood pressure, cholesterol, Arimidex, infusion Additional History: breast cancer, radiation , chemotherapy EXAM MEASUREMENTS: Bone mineral densitometry was performed using the [employer]. Bone mineral density as measured about the Lumbar spine is: ----- L1-L4(G/cm2): 1.401 T Score Values are as follows: ----- L2: 1.6 ----- L3: 4.0 ----- L4: 1.4 ----- L1-L4:1.8 Bone mineral density about the L Wrist (g/cm2): 0.649 T Score values are as follows: -----Dist. R+U: -0.7 -----Prox. R+U: -0.1 -----Radius total: -0.4 IMPRESSION: Normal (Values between +1 and -1 indicate normal bone mass). Consider repeating this study in 5 year s or sooner if there is some new clinical indication. NOTE: T-SCORE=SD OF THE YOUNG ADULT MEAN.
== END | disposition home or self-care (01) ==
LOC: RADBDWWP 09:27
PROVIDERS: ATTEND Internal Medicine Hematology & Oncology
DX: C50.412 Malignant neoplasm of upper-outer quadrant of left female breast (principal); N95.1 Menopausal and female climacteric states; Z79.890 Hormone replacement therapy
CPT/HCPCS: 77080

== ENCOUNTER → 2018-10-23 | Outpatient (CLI) | payer MEDICARE, BC ==
--- NOTE | 2018-10-23 12:28 | ECHOF ---
Referral Reason:C50.412 breast cancer; Z01.818 Pre-chemo MEASUREMENTS -------- HEIGHT: 160.0 cm WEIGHT: 76.2 kg BP: 140/66 IVSd: 1.2 cm (0.6 - 1.1) LVIDd: 3.2 cm (3.9 - 5.3) LVPWd: 1.4 cm (0.6 - 1.1) IVSs: 1.4 cm LVIDs: 2.0 cm LVPWs: 1.7 cm LAESV Index (A-L): 14.80 ml/m Ao Diam: 2.6 cm (2.0 - 3.7) AV Cusp: 1.7 cm (1.5 - 2.6) LA Diam: 3.1 cm (2.7 - 3.8) MV EXCURSION: 16.269 mm (> 18.000) MV EF SLOPE: 102 mm/s (70 - 150) EPSS: 0.1 cm MV E Red: 0.86 m/s MV DecT: 263 ms MV A Red: 1.04 m/s MV E/A Ratio: 0.83 RAP: 5.00 mmHg RVSP: 22.70 mmHg FINDINGS -------- Sinus rhythm. This was a technically adequate study. The left ventricular size is normal. There is mild concentric left ventricular hypertrophy. Overa ll left ventricular systolic function is normal with, an EF between 55 - 60 %. The diastolic fillin g pattern is normal for the age of the patient 12.46. The right ventricle is normal in size. Normal LA size by volume 22+/-6 ml/m2. The right atrial size is normal. Interatrial and interventricular septum intact. Aortic valve is trileaflet and is mildly thickened. There is no evidence of aortic regurgitation. There is no evidence of aortic stenosis. There is trace to mild mitral regurgitation. Mild tricuspid regurgitation present. There is no evidence of pulmonary hypertension. The right v entricular systolic pressure, as measured by Doppler, is 22.70mmHg. There is no pulmonic regurgitation present. The aortic root size is normal. Normal inferior vena cava with normal inspiratory collapse consistent with estimated right atrial pre ssure of 5 mmHg. There is a trivial pericardial effusion present. CONCLUSIONS -------- 1. Sinus rhythm. 2. This was a technically adequate study. 3. The left ventricular size is normal. 4. There is mild concentric left ventricular hypertrophy. 5. Overall left ventricular systolic function is normal with, an EF between 55 - 60 %. 6. The diastolic filling pattern is normal for the age of the patient 12.46 7. The right ventricle is normal in size. 8. Normal LA size by volume 22+/-6 ml/m2. 9. The right atrial size is normal. 10. Interatrial and interventricular septum intact. 11. Aortic valve is trileaflet and is mildly thickened. 12. There is no evidence of aortic regurgitation. 13. There is no evidence of aortic stenosis. 14. There is trace to mild mitral regurgitation. 15. Mild tricuspid regurgitation present. 16. There is no evidence of pulmonary hypertension. 17. The right ventricular systolic pressure, as measured by Doppler, is 22.70mmHg. 18. There is no pulmonic regurgitation present. 19. The aortic root size is normal. 20. Normal inferior vena cava with normal inspiratory collapse consistent with estimated right atrial pressure of 5 mmHg. 21. There is a trivial pericardial effusion present. WIRE STRIPPING MACHINE OPERATOR: Elina Nava RDCS
== END | disposition home or self-care (01) ==
LOC: RADECHMAIN 11:15
PROVIDERS: ATTEND Internal Medicine Hematology & Oncology
DX: I07.1 Rheumatic tricuspid insufficiency (principal); I31.3 Pericardial effusion (noninflammatory); C50.412 Malignant neoplasm of upper-outer quadrant of left female breast
CPT/HCPCS: 93306

== ENCOUNTER → 2018-10-23 | Outpatient (CLI) | payer MEDICARE, BC ==
--- NOTE | 2018-10-23 12:07 | MM ---
Reason for exam: additional evaluation requested from prior study. Last mammogram was performed 1 year and 1 month ago. History: Patient is postmenopausal, has history of breast cancer at age 67, has history of other cancer at age 53, and is nulliparous. Family history of breast cancer in maternal aunt at age 60, breast cancer in maternal cousin at age 34, and breast cancer in sister at age 52. Malignant US breast localization LT, October 31, 2017. Benign US biopsy breast VAD RT of the right breast, May 06, 2017. Benign excisional biopsy of the right breast, 2015. Benign excisional biopsy of the right breast, May 2014. Benign ultrasound-guided core biopsy of the left breast, 2012. Lumpectomy of the left breast. Chemotherapy. Radiation therapy of the left breast. Took estrogen for 29 years beginning at age 30. Physical Findings: Nurse did not find any significant physical abnormalities on exam. MG 3D Diag Mammo W/Cad KATINA Bilateral CC and MLO view(s) were taken. Prior study comparison: September 21, 2017, bilateral MG 3d diag mammo w/cad KATINA. May 06, 2017, right breast MG diagnostic mammo RT wo CAD. The breast tissue is heterogeneously dense. This may lower the sensitivity of mammography. Finding: Architectural distortion in the left breast consistent with previous surgery. Left skin thickening. Previous mammotome biopsy in the right and left breast. There is a chronic nodularity in the right breast. There is irregular 10mm density right subareolar. These results were verbally communicated with the patient and result sheet given to the patient on 10/23/18. ASSESSMENT: Incomplete: need additional imaging evaluation, BI-RAD 0 RECOMMENDATION: Breast MRI of the right breast.
== END | disposition home or self-care (01) ==
LOC: RADMAMWWP 10:06
PROVIDERS: ATTEND Radiology Diagnostic Radiology
DX: C50.912 Malignant neoplasm of unspecified site of left female breast (principal)
CPT/HCPCS: 77066; G0279; 77062

== ENCOUNTER → 2018-11-02 | Outpatient (CLI) | payer MEDICARE, BC ==
--- NOTE | 2018-11-02 12:40 | BMR ---
EXAMINATION TYPE: MR breast BILAT wo/w con DATE OF EXAM: 11/02/2018 COMPARISON: 3-D mammogram October 23, 2018 BI-RADS 0 and older mammograms. HISTORY: Abnormal breast mammogram, history of left-sided breast cancer diagnosed 2017 CONTRAST: Multiplanar, multisequence images of the breasts were acquired utilizing 7 mL intravenous Gadavist ga dolinium contrast. TECHNIQUE: A series of fat and water weighted images in the long and short axis views of both breasts are obtained in conjunction with dynamic contrast MRI with subtraction technique. Three-dimensional and additional postprocessing imaging is created on independent workstation and reviewed during offi cial interpretation of this study. FINDINGS: Heterogeneously dense fibroglandular tissue throughout both breasts is redemonstrated. T2 S tar weighted images show some scattered small simple appearing thin-walled cysts bilaterally. Dynamic postcontrast images show fairly moderate background enhancement slightly more prominent in the left breast versus right breast making evaluation slightly suboptimal. With regards to the left breast there is central distortion from lumpectomy changes 2018. Mild skin t hickening left breast is presumed posttreatment change. No new suspicious pathologic enhancement. No axillary adenopathy. There is a round 5 x 6 mm gradual enhancing lesion just below level of nipple me dial to the distortion and clips from lumpectomy for reference image 291 series 702 and image 296 ser ies 701. This is estimated 2 to 3 cm distance from nipple With regards to the right breast there is no enhancing mass or pathologic enhancement. No suspicious axillary adenopathy. Chest wall is intact. Artifact from biopsy clip noted inferiorly just laterally in the anterior tissue. No suspicious enhancing mass seen in the area of mammogram concern. Incidental tiny bilateral pleural effusions layering dependently or anteriorly. IMPRESSION: No MRI evidence for invasive malignancy in the right breast. Round 6 mm enhancing solid l esion anterior to middle depth medial aspect of right breast near to just below level of nipple. BI-RADS 2 benign findings right breast. BI-RADS 0 incomplete findings left breast. Recommendation: Ultrasound follow-up for left breast MRI lesion.
== END | disposition home or self-care (01) ==
LOC: RADMRIMAIN 10:12
PROVIDERS: ATTEND Radiology Diagnostic Radiology
DX: N64.89 Other specified disorders of breast (principal)
CPT/HCPCS: C8937; C8908; A9585; 77049

== ENCOUNTER → 2019-01-17 | Outpatient (CLI) | payer MEDICARE, BC ==
--- NOTE | 2019-01-18 12:01 | ECHOF ---
Referral Reason:C50.412 breast ca Z01.818 preprocedural testing MEASUREMENTS -------- HEIGHT: 165.1 cm WEIGHT: 75.7 kg BP: RVIDd: 2.7 cm (< 3.3) IVSd: 1.1 cm (0.6 - 1.1) LVIDd: 3.8 cm (3.9 - 5.3) LVPWd: 1.0 cm (0.6 - 1.1) IVSs: 1.1 cm LVIDs: 3.3 cm LVPWs: 1.1 cm LA Diam: 3.9 cm (2.7 - 3.8) LAESV Index (A-L): 26.65 ml/m Ao Diam: 3.1 cm (2.0 - 3.7) AV Cusp: 1.8 cm (1.5 - 2.6) LA Diam: 4.0 cm (2.7 - 3.8) TAPSE: 1.7 cm EPSS: 0.3 cm MV E Red: 0.49 m/s MV DecT: 183 ms MV A Red: 0.75 m/s MV E/A Ratio: 0.65 RAP: 5.00 mmHg RVSP: 22.02 mmHg MV EF SLOPE: 72.72 mm/s (70 - 150) MV EXCURSION: 1.04 cm (> 18.000) FINDINGS -------- Sinus rhythm. The left ventricular size is normal. Left ventricular wall thickness is normal. Overall left vent ricular systolic function is normal with, an EF between 55 - 60 %. The diastolic filling pattern is normal for the age of the patient 3.98. The right ventricle is normal in size. The right ventricular systolic function is mildly impaired. The left atrial size is normal. The right atrial size is normal. There is mild aortic valve sclerosis. Mild mitral annular calcification present. Mild mitral regurgitation is present. Mild tricuspid regurgitation present. Right ventricular systolic pressure is normal at < 35 mmHg. There is no evidence of pulmonary hypertension. There is no pulmonic regurgitation present. The aortic root size is normal. There is a trivial pericardial effusion present. Lumason utilzed for enhancement of images. CONCLUSIONS -------- 1. Sinus rhythm. 2. The left ventricular size is normal. 3. Left ventricular wall thickness is normal. 4. Overall left ventricular systolic function is normal with, an EF between 55 - 60 %. 5. The diastolic filling pattern is normal for the age of the patient 3.98 6. The right ventricle is normal in size. 7. The right ventricular systolic function is mildly impaired. 8. The left atrial size is normal. 9. The right atrial size is normal. 10. Lumason utilzed for enhancement of images. 11. There is mild aortic valve sclerosis. 12. Mild mitral annular calcification present. 13. Mild mitral regurgitation is present. 14. Mild tricuspid regurgitation present. 15. Right ventricular systolic pressure is normal at < 35 mmHg. 16. There is no evidence of pulmonary hypertension. 17. There is no pulmonic regurgitation present. 18. The aortic root size is normal. NATURAL RESOURCE OFFICER: Arlette Felipe RDCS
== END | disposition home or self-care (01) ==
LOC: RADECHMAIN 13:01
PROVIDERS: ATTEND Internal Medicine Hematology & Oncology
DX: Z01.818 Encounter for other preprocedural examination (principal); I08.1 Rheumatic disorders of both mitral and tricuspid valves; C50.412 Malignant neoplasm of upper-outer quadrant of left female breast
CPT/HCPCS: C8929; Q9950; 93306

== ENCOUNTER → 2019-04-12 | Outpatient (CLI) | payer MEDICARE, BC ==
--- NOTE | 2019-04-17 14:32 | USB ---
Reason for exam: clinical finding. History: Patient is postmenopausal, has history of breast cancer at age 67, has history of other cancer at age 53, and is nulliparous. Family history of breast cancer in maternal aunt at age 60, breast cancer in maternal cousin at age 34, and breast cancer in sister at age 52. Malignant US breast localization LT, October 31, 2017. Benign US biopsy breast VAD RT of the right breast, May 06, 2017. Benign excisional biopsy of the right breast, 2015. Benign excisional biopsy of the right breast, May 2014. Benign ultrasound-guided core biopsy of the left breast, 2012. Lumpectomy of the left breast. Chemotherapy. Radiation therapy of the left breast. Took estrogen for 29 years beginning at age 30. Indicated problem(s): pain in both breasts. Physical Findings: Nurse Summary: 1cm palpable lump left breast 9 o'clock at site of patient's pain, states pain left breast constant x 1 year since radiation (nurse TM). US Breast BILAT Right complete breast ultrasound includes all four quadrants, the retroareolar region and axilla. Finding demonstrates a 5 x 4 x 3mm cystic cluster at 1 o'clock, a 4 x 3 x 5mm cystic lesion at 2 o'clock, a hypoechoic shadowing lesion at 7 o'clock scar and a 3 x 4 x 4mm cystic lesion at 8 o'clock. Left complete breast ultrasound includes all four quadrants, the retroareolar region and axilla. Finding demonstrates a 1.0cm hypoechoic, shadowing lesion at 1 o'clock scar no interval growth and a 5 x 5 x 5mm cystic lesion at 2 o'clock. These results were verbally communicated with the patient on 04/17/19. ASSESSMENT: Benign, BI-RAD 2 RECOMMENDATION: Follow-up diagnostic mammogram of both breasts in 6 months. Back on schedule for October 2019.
== END | disposition home or self-care (01) ==
LOC: RADUSWWP 14:37
PROVIDERS: ATTEND Family Medicine
DX: N64.4 Mastodynia (principal)

== ENCOUNTER → 2019-10-31 | Outpatient (CLI) | payer MEDICARE, BC ==
--- NOTE | 2019-11-01 09:36 | MM ---
Reason for exam: additional evaluation requested from prior study. Last mammogram was performed 1 year ago. History: Patient is postmenopausal, has history of breast cancer at age 67, has history of other cancer at age 53, and is nulliparous. Family history of breast cancer in maternal aunt at age 60, breast cancer in maternal cousin at age 34, and breast cancer in sister at age 52. Malignant US breast localization LT, October 31, 2017. Benign US biopsy breast VAD RT of the right breast, May 06, 2017. Benign excisional biopsy of the right breast, 2015. Benign excisional biopsy of the right breast, May 2014. Benign ultrasound-guided core biopsy of the left breast, 2012. Lumpectomy of the left breast. Chemotherapy. Radiation therapy of the left breast. Took estrogen for 29 years beginning at age 30. Took antineoplastic beginning at age 67. Physical Findings: Nurse did not find any significant physical abnormalities on exam. MG 3D Diag Mammo W/Cad KATINA Bilateral CC and MLO view(s) were taken. Prior study comparison: October 23, 2018, bilateral MG 3d diag mammo w/cad KATINA. September 21, 2017, bilateral MG 3d diag mammo w/cad KATINA. The breast tissue is heterogeneously dense. This may lower the sensitivity of mammography. Finding #1: Architectural distortion in the left breast consistent with known lumpectomy changes. Finding #2: There are typically benign dystrophic, round, linear calcifications in both breasts. Previous mammotome biopsy in the right breast. There is a chronic nodularity bilaterally. There is no discrete abnormality. These results were verbally communicated with the patient and result sheet given to the patient on 10/31/19. ASSESSMENT: Benign, BI-RAD 2 RECOMMENDATION: Follow-up diagnostic mammogram of both breasts in 1 year. Manage on a clinical basis with regard to pain.
== END | disposition home or self-care (01) ==
LOC: RADMAMWWP 14:04
PROVIDERS: ATTEND Family Medicine
DX: C50.012 Malignant neoplasm of nipple and areola, left female breast (principal)
CPT/HCPCS: 77066; G0279; 77062

== ENCOUNTER → 2019-11-20 | Outpatient (CLI) | payer MEDICARE, BC ==
--- NOTE | 2019-11-20 12:06 | XR ---
Left RIBS HISTORY: Left rib pain 3 views of the left ribs Surgical clips are present in the left breast. Bone mineralization is maintained. There is no evident fracture. No pneumothorax or left pleural effusion is evident. impression: Postop changes. Bone scan could be performed for increased sensitivity as indicated.
== END | disposition home or self-care (01) ==
LOC: RADXRMAIN 10:26
PROVIDERS: ATTEND Surgery
DX: Z98.890 Other specified postprocedural states (principal); C50.512 Malignant neoplasm of lower-outer quadrant of left female breast

== ENCOUNTER → 2019-12-04 | Outpatient (CLI) | payer MEDICARE, BC ==
--- NOTE | 2019-12-04 14:59 | NM ---
EXAMINATION TYPE: NM bone scan whole body DATE OF EXAM: 12/04/2019 COMPARISON: Left rib radiograph 11/20/2019 HISTORY: Rib pain Delayed whole-body scanning was performed following the injection of 24.6 mCi Tc 99m MDP. Images acq uired 3 hours post injection. FINDINGS: No focal abnormal uptake over the ribs. There is symmetric degenerative uptake involving the bilatera l shoulders, knees, ankles and feet. IMPRESSION: No focal activity of the ribs to indicate fracture. Degenerative changes as above.
== END | disposition home or self-care (01) ==
LOC: RADNMMAIN 09:49
PROVIDERS: ATTEND Surgery
DX: M13.89 Other specified arthritis, multiple sites (principal)
CPT/HCPCS: 78306; A9503

== ENCOUNTER → 2020-10-31 | Outpatient (CLI) | payer MEDICARE, BC ==
--- NOTE | 2020-10-31 14:15 | MM ---
Reason for exam: additional evaluation requested from prior study. Last mammogram was performed 1 year ago. History: Patient is postmenopausal, has history of breast cancer at age 67, has history of other cancer at age 53, and is nulliparous. Family history of breast cancer in maternal aunt at age 60, breast cancer in maternal cousin at age 34, and breast cancer in sister at age 52. Malignant US breast localization LT, October 31, 2017. Benign US biopsy breast VAD RT of the right breast, May 06, 2017. Benign excisional biopsy of the right breast, 2015. Benign excisional biopsy of the right breast, May 2014. Benign ultrasound-guided core biopsy of the left breast, 2012. Lumpectomy of the left breast. Chemotherapy. Radiation therapy of the left breast. Took estrogen for 29 years beginning at age 30. Took antineoplastic beginning at age 67. Physical Findings: Nurse did not find any significant physical abnormalities on exam. MG 3D Diag Mammo W/Cad KATINA Bilateral CC and MLO view(s) were taken. Prior study comparison: October 31, 2019, bilateral MG 3d diag mammo w/cad KATINA. October 23, 2018, bilateral MG 3d diag mammo w/cad KATINA. The breast tissue is heterogeneously dense. This may lower the sensitivity of mammography. Right biopsy clips, left post operative change. Clinical follow up recommended for bilateral nipple discharge x 10 years which patient reports has possibly increased. Ultrasound could be obtained if clinically warranted. These results were verbally communicated with the patient and result sheet given to the patient on 10/31/20. ASSESSMENT: Benign, BI-RAD 2 RECOMMENDATION: Follow-up diagnostic mammogram of both breasts in 1 year. FREDERICK
== END | disposition home or self-care (01) ==
LOC: RADMAMWWP 12:46
PROVIDERS: ATTEND Family Medicine
DX: N64.52 Nipple discharge (principal); Z78.0 Asymptomatic menopausal state; Z85.3 Personal history of malignant neoplasm of breast; Z80.3 Family history of malignant neoplasm of breast
CPT/HCPCS: 77066; G0279; 77062

== ENCOUNTER → 2021-01-08 | Outpatient (CLI) | payer MEDICARE, BC ==
--- NOTE | 2021-01-08 14:32 | US ---
EXAMINATION TYPE: US liver DATE OF EXAM: 01/08/2021 COMPARISON: NONE CLINICAL HISTORY: 70-year-old female R74.8 abn levels of other serum enzymes. TECHNIQUE: Multiple sonographic images of the right upper quadrant are obtained. FINDINGS: EXAM MEASUREMENTS: Liver Length: 17.1 cm Gallbladder Wall: 0.2 cm CBD: 0.3 cm Right Kidney: 11.0x4.1x5.6 cm Pancreas: Suboptimal visualization of the pancreatic tail due to shadowing from bowel gas. Liver: Echogenic and attenuating. There is a focal hypoechoic lesion in the left liver lobe that see ms to have some posterior through transmission measuring 1.1 x 0.8 x 1.0 cm. Gallbladder: A couple small mural based echogenic foci measuring up to 4 mm are present along the po sterior wall. These are nonmobile. No wall thickening, abnormal distention, or pericholecystic fluid. Evidence for sonographic Culver's sign: No CBD: wnl Right Kidney: No hydronephrosis. IMPRESSION: 1. Borderline hepatomegaly with moderate to severe hepatic steatosis. 2. A 1.1 cm lesion within the left liver lobe. A benign entity such as a debris-filled cyst or benita ioma is favored. 3 - 6 month follow-up ultrasound recommended to reassess. 3. Suggestion of a couple gallbladder wall polyps measuring up to 4 mm. These can also be reassessed at follow-up. 4. No biliary ductal dilatation.
== END | disposition home or self-care (01) ==
LOC: RADUSWWP 09:23
PROVIDERS: ATTEND Family Medicine
DX: K76.0 Fatty (change of) liver, not elsewhere classified (principal); R16.0 Hepatomegaly, not elsewhere classified; K76.9 Liver disease, unspecified
CPT/HCPCS: 76705

== ENCOUNTER → 2021-03-19 | Outpatient (CLI) | payer MEDICARE, BC ==
--- NOTE | 2021-03-19 09:26 | US ---
EXAMINATION TYPE: US abdomen limited DATE OF EXAM: 03/19/2021 COMPARISON: NONE CLINICAL HISTORY: K76.89 other specified diseases of the liver. EXAM MEASUREMENTS: Liver Length: 18.1 cm Gallbladder Wall: 0.2 cm CBD: 0.6 cm Right Kidney: 11.0x4.5x3.8 cm Pancreas: wnl Liver: Two hypoechoic regions Left lobe= 1.0x0.9x0.8cm Prev 1.1x1.0x0.8cm Right Lobe = 0.9x0.9x0.6cm Gallbladder: 3 polyps noted largest 0.4cm prev 0.4cm Evidence for sonographic Culver's sign: No CBD: wnl Right Kidney: wnl IMPRESSION: 1 gallbladder polyps. 2. Nonspecific hypoechoic hepatic lesions. Consider CT correlation.
== END | disposition home or self-care (01) ==
LOC: RADUSWWP 08:49
PROVIDERS: ATTEND Family Medicine
DX: K82.4 Cholesterolosis of gallbladder (principal); K76.89 Other specified diseases of liver
CPT/HCPCS: 76705

== ENCOUNTER → 2021-04-03 | Outpatient (CLI) | payer MEDICARE, BC ==
--- NOTE | 2021-04-03 13:09 | CT ---
EXAMINATION TYPE: CT abdomen w con DATE OF EXAM: 04/03/2021 COMPARISON: Ultrasound abdomen limited March 29, 2021 HISTORY: Cholesterolosis of gallbladder, cystic liver, abnormal labs, US CT DLP: 733 mGycm Automated exposure control for dose reduction was used. TECHNIQUE: Helical acquisition of images was performed from the lung bases through the top of iliac crest to include entire abdomen. CONTRAST: Performed with Oral Contrast and with IV Contrast, patient injected with 100 mL of Isovue 300. FINDINGS: LUNG BASES: No significant abnormality is appreciated. LIVER/GB: Liver is diffusely low dense system with diffuse fatty infiltration. No biliary ductal dila tation. Punctate densities in gallbladder could correspond to tiny polyps. No abnormal wall thickenin g or surrounding fat stranding. PANCREAS: No significant abnormality is seen. SPLEEN: Splenomegaly is seen measuring 16.7 cm long axis axial image 19. Hilar splenule noted axial image 22. ADRENALS: No significant abnormality is seen. KIDNEYS: No significant abnormality is seen. BOWEL: Oral contrast has not reached terminal ileum making evaluation of distal bowel slightly subop timal. No suspicious small or large bowel dilatation is seen. LYMPH NODES: No significant abnormality is seen. OSSEOUS STRUCTURES: Grade 1 anterolisthesis L4 and L5. Mild to moderate disc space narrowing at this level. Posterior disc herniation effaces the anterior thecal sac axial image 44 at this level. OTHER: Moderate to severe mixed peripheral plaque and small caliber abdominal aorta IMPRESSION: Diffuse fatty infiltration of liver. No concerning focal masses identified. Splenomegaly is noted. No biliary dilatation.
== END | disposition home or self-care (01) ==
LOC: RADCTMAIN 10:53
PROVIDERS: ATTEND Family Medicine
DX: E11.65 Type 2 diabetes mellitus with hyperglycemia (principal); K76.0 Fatty (change of) liver, not elsewhere classified; R16.1 Splenomegaly, not elsewhere classified
CPT/HCPCS: 82565; 84520; 74160; 36415; Q9967

== ENCOUNTER → 2021-05-12 | Outpatient (CLI) | payer MEDICARE, BC ==
--- NOTE | 2021-05-12 13:40 | BMR ---
EXAMINATION TYPE: MR breast BILAT wo/w con DATE OF EXAM: 05/12/2021 COMPARISON: MRI bilateral breasts November 02, 2018. 3-D bilateral breast mammogram BI-RADS 2. HISTORY: Breast cancer, lump removal right 2014, left 2018 cancer. Prior biopsy bilateral breast. TECHNIQUE: A series of fat and water weighted images in the long and short axis views of both breasts are obtained in conjunction with dynamic contrast MRI with subtraction technique. The patient was i njected with 8 mL intravenous Gadavist gadolinium contrast. Three-dimensional and additional postpr ocessing imaging is created on independent workstation and reviewed during official interpretation of this study. FINDINGS: Heterogeneously dense fibroglandular tissue throughout both breasts is redemonstrated. T2 a nd STIR weighted images show no significant focal fluid collection or suspicious cystic lesions. Axia l and coronal weighted images show no new suspicious axillary adenopathy. Dynamic postcontrast images show moderate to severe background enhancement more prominent in the right breast versus left breast on current study making evaluation slightly suboptimal. Delayed dynamic imaging shows no suspicious internal mammary lymph nodes. With regards to the left breast there is central distortion and artifact from surgical clips from lum pectomy and posttreatment changes from 2018 redemonstrated. Stable mild overlying skin thickening lef t breast presumed posttreatment change is redemonstrated. No new suspicious pathologic enhancement. N o axillary adenopathy. There is a stable round 5 x 6 mm gradual enhancing lesion just below level of nipple medial to a distortion from surgical clip from lumpectomy for reference image 551 series 701 r edemonstrated stable presumed benign. Just superior to this level in the posterior depth just lateral to the clip and adjacent tissue there is is persistent oval enhancing 9 x 7 mm lesion image 97 and s eries 801 for reference. In retrospect this was present on prior study, does not persist on subtracti on images. It is presumed benign given interval stability. Chest wall is intact. With regards to the right breast there is marked more prominent nodular background enhancement making evaluation suboptimal. Areas of most concern are a new oval area with margins medially at level of n ipple roughly 3.5 cm distance from nipple measuring 9 x 7 mm with heterogeneous postcontrast enhancem ent that has some areas of benign gradual enhancement but additional areas of nonspecific plateau enh ancement and some areas of washout inferiorly. Second area of concern measures approximately 8 x 8 mm just superior to the first lesion at superior aspect of the nipple slightly outer aspect right breas t approximately 4.5 cm distance from nipple. Smaller areas of nodular enhancement under 5 mm are pres ent. Finally superiorly near 12 to 1:00 position there is 7 x 4 mm lesion image 563 series 701, compu ter measures under 5 mm long axis. Chest wall is intact. Incidental tiny bilateral pleural effusions layering dependently or anteriorly are redemonstrated. IMPRESSION: No MRI evidence for invasive malignancy in the left breast. Some new areas of concern in the right breast are present. Evaluation right breast suboptimal due to extensive nodular background enhancement on current study. BI-RADS 4 suspicious abnormalities right breast. BI-RADS 2 benign findings left breast Recommendation: Ultrasound follow-up for areas of concern right breast. I will attempt to obtain a second opinion from [facility] radiologist. Addendum will be issued when their r eport is available.
== END | disposition home or self-care (01) ==
LOC: RADMRIMAIN 10:14
PROVIDERS: ATTEND Internal Medicine Hematology & Oncology
DX: C50.412 Malignant neoplasm of upper-outer quadrant of left female breast (principal)
CPT/HCPCS: C8937; C8908; A9585; 77049

== ENCOUNTER → 2021-05-28 | Outpatient (CLI) | payer MEDICARE, BC ==
--- NOTE | 2021-05-28 12:25 | USB ---
Reason for exam: clinical finding. History: Patient is postmenopausal, has history of breast cancer at age 67, has history of other cancer at age 53, and is nulliparous. Family history of breast cancer in maternal aunt at age 60, breast cancer in maternal cousin at age 34, and breast cancer in sister at age 52. Malignant US breast localization LT, October 31, 2017. Benign US biopsy breast VAD RT of the right breast, May 06, 2017. Benign excisional biopsy of the right breast, 2015. Benign excisional biopsy of the right breast, May 2014. Benign ultrasound-guided core biopsy of the left breast, 2012. Lumpectomy of the left breast. Chemotherapy. Radiation therapy of the left breast. Took estrogen for 29 years beginning at age 30. Took antineoplastic beginning at age 67. Physical Findings: Nurse Summary: Patient complains of yellow/milky discharge spontaneous bilaterally since 2014 (nurse TM). US Breast RT Right complete breast ultrasound includes all four quadrants, the retroareolar region and axilla. Finding demonstrates a 0.5 x 0.3 x 0.6cm mixed lesion at 1 o'clock, stable from 04/12/19, benign, a 0.4 x 0.3 x 0.3cm cystic, benign lesion at 2 o'clock and a stable, benign scar at 7 o'clock. The areas of nodular enhancement initially commented on MRI not appreciated on ultrasound. These results were verbally communicated with the patient and result sheet given to the patient on 05/28/21. ASSESSMENT: Probably benign, BI-RAD 3 RECOMMENDATION: Follow-up diagnostic mammogram of both breasts in 5 months. Back on schedule for October 2021. Consideration can also be given to follow up MRI.
== END | disposition home or self-care (01) ==
LOC: RADUSWWP 09:25
PROVIDERS: ATTEND Family Medicine
DX: N60.01 Solitary cyst of right breast (principal); Z85.3 Personal history of malignant neoplasm of breast; Z78.0 Asymptomatic menopausal state; Z80.3 Family history of malignant neoplasm of breast

== ENCOUNTER → 2021-09-29 | Outpatient (CLI) | payer MEDICARE, BC ==
--- NOTE | 2021-09-29 09:34 | US ---
EXAMINATION TYPE: US abdomen limited DATE OF EXAM: 09/29/2021 COMPARISON: 03/19/2021 CLINICAL HISTORY: R10.11 RT UPPER QUADRANT PAIN. RUQ pain. Abnormal labs. EXAM MEASUREMENTS: Liver Length: 15.8 cm Gallbladder Wall: 0.2 cm CBD: 0.6 cm Right Kidney: 11.0 x 4.6 x 4.1 cm Pancreas: Tail obscured by overlying bowel gas Liver: Echogenic and coarse. Left lobe hypoechoic area, possible cyst = 1.0 x 1.2 x 0.9 cm Gallbladder: Echogenic lesions adjacent to wall, no shadowing, nonmobile Evidence for sonographic Culver's sign: neg CBD: wnl Right Kidney: No hydronephrosis or masses seen IMPRESSION: 1. Nonspecific findings the liver can be seen with hepatic steatosis, hepatitis or hepatocellular dis ease. Small hypoechoic area in the left lobe of the liver could be related to focal area of fatty spa ring. Correlate with CT scan as clinically warranted. 2. Nonshadowing echogenic lesions in the gallbladder may represent multiple polyps. Common bile duct at the upper limits of normal measuring 6 mm. Correlate clinically.
== END | disposition home or self-care (01) ==
LOC: RADUSWWP 07:58
PROVIDERS: ATTEND Family Medicine
DX: K76.0 Fatty (change of) liver, not elsewhere classified (principal)
CPT/HCPCS: 76705

== ENCOUNTER → 2021-11-02 | Outpatient (CLI) | payer MEDICARE, BC ==
--- NOTE | 2021-11-02 15:13 | MM ---
Reason for Exam: Hx of breast cancer, conservation therapy. Last screening mammogram was performed 12 month(s) ago. Patient History: Menarche at age 12. Patient has no children. Left ovary removed at age 30. Right ovary removed at age 30. Hysterectomy at age 30. Postmenopausal. Other cancer, age 53. Breast cancer, left, age 67. Estrogen for 29 years from age 30 until age 59. 2012, Benign Ultrasound-Guided Core Biopsy on the left side. 05/2014, Benign Excisional Biopsy on the right side. 2015, Benign Excisional Biopsy on the right side. Lumpectomy on the Left side. Malignant Core Biopsy. 05/06/2017, Benign Core Biopsy on the right side. Chemotherapy. Radiation Therapy, left. Maternal cousin had breast cancer, age 34. Maternal aunt had breast cancer, age 60. Sister had breast cancer, age 52. Tissue Density: The breast tissue is heterogeneously dense. This may lower the sensitivity of mammography. Findings: Analyzed By CAD. Postsurgical changes are on the left. Multiple surgical clips are present. There are scattered benign-appearing calcifications present bilaterally. Chronic nodularity is present on the right. No significant interval changes are evident. Overall Assessment: Benign, BI-RAD 2 Management: Diagnostic Mammogram of both breasts in 1 year. A clinical breast exam by your physician is recommended on an annual basis and results should be correlated with mammographic findings. This exam should not preclude additional follow-up of suspicious palpable abnormalities. Results were given to the patient verbally at the time of exam. Patient should continue monthly self breast exam. Negative mammogram should not preclude biopsy of suspicious palpable abnormalities. Electronically signed and approved by: Scar Benavidez D.O. Radiologis
== END | disposition home or self-care (01) ==
LOC: RADMAMWWP 14:04
PROVIDERS: ATTEND Internal Medicine Hematology & Oncology
DX: R92.8 Other abnormal and inconclusive findings on diagnostic imaging of breast (principal); Z80.3 Family history of malignant neoplasm of breast; Z78.0 Asymptomatic menopausal state
CPT/HCPCS: 77066; G0279; 77062

== ENCOUNTER → 2021-11-24 | Outpatient (CLI) | payer MEDICARE, BC ==
--- NOTE | 2021-11-24 10:48 | CA ---
Exercise Stress Test Report Name: Dali Calles Exam Date: 11/24/2021 09:32 Exam Location: [facility] Ht (in): 63 Wt (lb): 169 BSA: 1.80 Ordering Phys: Anupama Johnson MD Referring Phys: Anupama Johnson MD Technologist: Francisco Mike Age: 71 Gender: F : 1950 Procedure CPT: Indications: R07.9 CHEST PAIN ICD-10 Codes: Patient History: Medications: Meds past 24 hrs: Pretest Chest Pain: STRESS TEST Protocol Exercise Duration (min:sec): 05:[address] Depressions (mm): Angina Score: Villanueva Score: Resting HR (bpm): 103 Peak HR (bpm): 154 Resting BP (mmHg): 170 / 60 Peak BP (mmHg): 208 / 45 MPHR: 147 Target HR: 125 % MPHR: 105 METS: 7.1 Total Dose: Peak Dose: Atropine: Double Product: 33948 BP Response: Stress Termination: Reached target heart rate Stress Symptoms: SHORTNESS OF BREATH Stress Summary: ECG ANALYSIS Resting ECG: Stress ECG: CONCLUSIONS Good exercise tolerance Normal EKG in response to exercise Please follow-up on the Cardiolite portion Dr. Hari Blas MD (Electronically Signed) Final Date: 24 November 2021 10:47
--- NOTE | 2021-11-24 12:23 | NM ---
EXAMINATION TYPE: NM stress cardiolite complete DATE OF EXAM: 11/24/2021 COMPARISON: NONE HISTORY: TECHNIQUE: After the intravenous administration of 9.8 mCi Tc 99m Sestamibi - Rest images obtained 4 5 minutes post injection. The patient exercised using a SAIRA protocol and 1 minute prior to peak e xercise was injected with 25.7 mCi Tc 99m Sestamibi - Stress images obtained 10 minutes post injectio n. FINDINGS: Targeted heart rate was achieved during performance of the study. Review of stress and rest SPECT donovan ges demonstrates no distinct perfusion abnormality. Gated analysis shows normal wall motion with an estimated left ventricular ejection fraction of 92 %. IMPRESSION: No scintigraphic evidence for reversible ischemia
== END | disposition home or self-care (01) ==
LOC: RADNMMAIN 07:31
PROVIDERS: ATTEND Family Medicine
DX: R07.9 Chest pain, unspecified (principal)
CPT/HCPCS: 93017; 78452; A9500

== ENCOUNTER → 2022-07-26 | Outpatient (CLI) | payer MEDICARE, BC ==
--- NOTE | 2022-07-26 12:38 | US ---
EXAMINATION TYPE: US venous doppler duplex LE LT DATE OF EXAM: 07/26/2022 12:27 PM COMPARISON: NONE CLINICAL INDICATION: Female, 72 years old with history of M79.605 PAIN IN LEFT LEG; Left lower leg sw elling SIDE PERFORMED: Left TECHNIQUE: The lower extremity deep venous system is examined utilizing real time linear array sonog jhoana with graded compression, doppler sonography and color-flow sonography. VESSELS IMAGED: Common Femoral Vein Deep Femoral Vein Greater Saphenous Vein * Femoral Vein Popliteal Vein Small Saphenous Vein * Proximal Calf Veins (* superficial vessels) Left Leg: Appears negative for DVT IMPRESSION: No evidence for DVT at this time
== END | disposition home or self-care (01) ==
LOC: RADUSWWP 12:06
PROVIDERS: ATTEND Family Medicine
DX: M79.605 Pain in left leg (principal)

== ENCOUNTER → 2022-11-03 | Outpatient (CLI) | payer MEDICARE, BC ==
--- NOTE | 2022-11-03 14:28 | MM ---
Reason for Exam: Screening (asymptomatic). Last screening mammogram was performed 12 month(s) ago. Patient History: Menarche at age 12. Patient has no children. Left ovary removed at age 30. Right ovary removed at age 30. Hysterectomy at age 30. Postmenopausal. Other cancer, age 53. Breast cancer, left, age 67. Estrogen for 29 years from age 30 until age 59. 2012, Benign Ultrasound-Guided Core Biopsy on the left side. 05/2014, Benign Excisional Biopsy on the right side. 2015, Benign Excisional Biopsy on the right side. Lumpectomy on the Left side. Malignant Core Biopsy. 05/06/2017, Benign Core Biopsy on the right side. Chemotherapy. Radiation Therapy, left. Maternal cousin had breast cancer, age 34. Maternal aunt had breast cancer, age 60. Maternal cousin had breast cancer, age 35. Sister had breast cancer, age 52. Prior Study Comparison: 10/31/2019 Bilateral Diagnostic Mammogram, [facility]. 10/31/2020 Bilateral Diagnostic Mammogram, [facility]. 11/02/2021 Bilateral MG 3D diag mammo w/cad KATINA, [facility]. Tissue Density: The breast tissue is heterogeneously dense. This may lower the sensitivity of mammography. Findings: Analyzed By CAD. Right breast biopsy clips and left breast surgical clips. Benign-appearing calcifications. There is no suspicious group of microcalcifications or new suspicious mass in either breast. Overall Assessment: Benign, BI-RAD 2 Management: Screening Mammogram of both breasts in [address] [facility] will attempt to contact patient to return for supplemental views and ultrasound if indicated. Patient should continue monthly self-breast exams. A clinical breast exam by your physician is recommended on an annual basis. This exam should not preclude additional follow-up of suspicious palpable abnormalities. Note on Juliane scores and lifetime risk: 1. A Juliane score greater than 3% is considered moderate risk. If this is the case, consider specialist referral to assess eligibility for a risk reducing agent. 2. If overall lifetime risk for the development of breast cancer is 20% or higher, the patient may qualify for future screening with alternating mammogram and breast MRI. Electronically signed and approved by: Christian De La Rosa DO
== END | disposition home or self-care (01) ==
LOC: RADMAMWWP 08:02
PROVIDERS: ATTEND Internal Medicine Hematology & Oncology
DX: Z12.31 Encounter for screening mammogram for malignant neoplasm of breast (principal); C50.412 Malignant neoplasm of upper-outer quadrant of left female breast; Z78.0 Asymptomatic menopausal state; Z80.3 Family history of malignant neoplasm of breast; K21.9 Gastro-esophageal reflux disease without esophagitis; Z15.01 Genetic susceptibility to malignant neoplasm of breast; Z71.3 Dietary counseling and surveillance
CPT/HCPCS: 77063; 77067

== ENCOUNTER → 2022-11-03 | Outpatient (CLI) | payer MEDICARE, BC ==
--- NOTE | 2022-11-03 09:08 | US ---
EXAMINATION TYPE: US abdomen limited DATE OF EXAM: 11/03/2022 COMPARISON: CT 04/03/2021, ultrasound 09/29/2021 CLINICAL INDICATION: Female, 72 years old with history of K82.4, Q44.6; 09/29/2022 TECHNIQUE: Multiple sonographic images of the right upper quadrant are obtained. FINDINGS: EXAM MEASUREMENTS: Liver Length: 16.4 cm Gallbladder Wall: 0.2 cm CBD: 0.5 cm Right Kidney: 10.9x4.2x3.8 cm Pancreas: Tail obscured by overlying bowel gas Liver: increased attenuation and echogenicity, hypoechoic areas noted within liver Rt lobe: 0.9x0.7x0.8cm Lt lobe: 0.9x0.9x1.0cm Gallbladder: at least 4 hyperechoic areas noted on posterior wall largest measures 0.4cm and exhibi ts posterior shadowing. Evidence for sonographic Culver's sign: No CBD: wnl Right Kidney: wnl IMPRESSION: 1. Hypoechoic area within the liver which was not seen on prior CT on 04/03/2021. Consider follow-up dedicated MRI liver mass protocol. Correlate for history of malignancy. 2. Cholelithiasis.
== END | disposition home or self-care (01) ==
LOC: RADUSWWP 08:01
PROVIDERS: ATTEND Family Medicine
DX: K80.00 Calculus of gallbladder with acute cholecystitis without obstruction (principal); Q44.6 Cystic disease of liver
CPT/HCPCS: 76705

== ENCOUNTER → 2022-11-27 | Outpatient (CLI) | payer MEDICARE, BC ==
--- NOTE | 2022-11-27 17:53 | MR ---
EXAMINATION TYPE: MR liver wo/w con DATE OF EXAM: 11/27/2022 11:55 AM INDICATION: Patient age:Female; 72 years old; Reason for study: R16.0 HEPATOMEGALY, NOT ELSEWHERE CLASSIFIED;. F/U to liver US, elevated liver enzy mes, history of breast CA 2018. COMPARISON: Ultrasound 11/03/2022 TECHNIQUE: Multiplanar multi-sequence imaging was performed without contrast. Post contrast imaging was performed. Post IV contrast subtraction images were also submitted for review. IV Contrast: 8 cc Gadavist FINDINGS: LOWER CHEST: No gross irregularity. ABDOMEN Liver: Scattered high DWI signal lesions are seen throughout the liver. At least one of the lesions i s thought to correlate with prior ultrasound 11/03/2022 which is high T2 and DWI signal measuring 10 m m in the left hepatic lobe which progressively enhances on delayed imaging. Additional smaller lesion s are most apparent on diffusion-weighted imaging. There is at least 10. A majority of which demonstr ate arterial phase enhancement. Some of the enhancement blends in with background hepatic tissue on d elayed imaging, suggesting vascular shunt phenomenon. Additional other larger 1's like in the right h epatic lobe have similar enhancement characteristics as a lesion on the left hepatic lobe which persi sts on delayed imaging. No observation that needs HCC criteria. Gallbladder and Bile ducts: Gallbladder fundal adenomyomatosis. Pancreas: Unremarkable. Spleen: Spleen is enlarged for size measuring up to 16.8 cm. Adrenal glands: Unremarkable. Kidneys: No evidence for obstructive uropathy. There is high T2 low T1 signal cysts. Stomach and Bowel: Unremarkable as visualized. Peritoneum: No evidence of pneumoperitoneum or free fluid. Vasculature: Unremarkable. No aortic aneurysm. The portal vein measures up to 16 mm in diameter. Musculoskeletal: The osseous structures appear intact. Lymph Nodes: No gross evidence for lymphadenopathy. Abdominal wall: Unremarkable. IMPRESSION: 1. Left hepatic lobe lesion present on prior ultrasound is favored represent benign etiologies such as atypical hemangioma. Additional at least 10 lesions are seen throughout the liver which may repres ent vascular shunting or other benign etiology. Consider short-term follow-up imaging in 6 months is recommended for stability. 2. Splenomegaly with dilated portal vein suggested portal hypertension. 3. Gallbladder fundal adenomyomatosis.
== END | disposition home or self-care (01) ==
LOC: RADMRIMAIN 09:54
PROVIDERS: ATTEND Family Medicine
DX: K76.89 Other specified diseases of liver (principal); K82.8 Other specified diseases of gallbladder; R16.2 Hepatomegaly with splenomegaly, not elsewhere classified
CPT/HCPCS: 74183; A9585

== ENCOUNTER → 2023-01-28 | Outpatient (CLI) | payer MEDICARE, BC ==
--- NOTE | 2023-01-28 16:00 | US ---
EXAMINATION TYPE: US pelvic complete DATE OF EXAM: 01/28/2023 COMPARISON: NONE CLINICAL INDICATION: Female, 72 years old with history of I89.0 LYMPHEDEMA, NOT ELSEWHERE CLASSIFIED; TECHNIQUE: . Transabdominal sonographic images of the pelvis were acquired. Date of LMP: 25+ years ago 1. Uterus: surgically absent 2. Endometrium: surgically absent 3. Right Ovary: surgically absent 4. Left Ovary: surgically absent 5. Bilateral Adnexa: wnl 6. Posterior cul-de-sac: wnl IMPRESSION: Unremarkable postoperative pelvis
== END | disposition home or self-care (01) ==
LOC: RADUSWWP 14:39
PROVIDERS: ATTEND Family Medicine
DX: I89.0 Lymphedema, not elsewhere classified (principal)
CPT/HCPCS: 76857

== ENCOUNTER 2023-03-25 08:30 | Day surgery (SDC) | payer MEDICARE, BC ==
--- NOTE | 2023-03-25 06:36 | P.GSHP ---
History of Present Illness H&P Date: 03/25/23 CHIEF COMPLAINT: Cholecystitis HISTORY OF PRESENT ILLNESS: The patient is a 72-year-old female who presents with history of epigastric including right upper quadrant abdominal pain. She underwent diagnostic studies for her gallbladder. Separately her clinical picture was consistent with cholecystitis. Now she presents for surgical intervention. PAST MEDICAL HISTORY: Please see list PAST SURGICAL HISTORY: Please see list MEDICATIONS: Please see list ALLERGIES: Please see list SOCIAL HISTORY: Please see list FAMILY HISTORY: Please see list REVIEW OF ORGAN SYSTEMS: CONSTITUTIONAL: No reports of fevers or chills. HEENT: Denies any troubles with the vision or hearing. ENDOCRINE: No reports of hypothyroidism. No diabetes. RESPIRATORY: No recent pneumonias. CARDIOVASCULAR: Denies chest pain or palpitations GI: No blood in stools or constipation. MUSCULOSKELETAL: Has occasional joint pain including back pain. NEURO: No seizure disorders or headaches. No recent stroke. PSYCH: No depression or suicidal ideation. GENITOURINARY: No active blood in urine. No urinary hesitancy. HEMATOLOGIC: No personal or family history of DVTs or pulmonary emboli. SKIN: No skin cancer. PHYSICAL EXAM: VITAL SIGNS: Afebrile vital signs stable GENERAL: Well-developed pleasant in no acute distress. HEENT: No scleral icterus. Extraocular movements grossly intact. Moist buccal mucosa. NECK: Supple without lymphadenopathy. CHEST: Unlabored respirations. Equal bilateral excursions. CARDIOVASCULAR: Regular rate regular rhythm rhythm. Distal 2+ pulses. ABDOMEN: Soft, nondistended. Tender along the epigastrium and right upper quadrant. MUSCULOSKELETAL: No clubbing, cyanosis, or edema. NEURO: Cranial nerves II to XII within normal limits. No focal or lateralizing signs. PSYCH: Alert and oriented to person, place and time. SKIN: Well-perfused good skin turgor. ASSESSMENT: 1. Epigastric and right upper quadrant abdominal pain 2. Chronic cholecystitis 3. Symptomatic gallstones. PLAN: 1. Will need a robotic cholecystectomy possible open. Benefits and risks were described. 2. Heparin for DVT prophylaxis 5000 units. 3. Antibiotic prophylaxis. 4. CBC and CMP on day of procedure 5. Non-narcotic pre and post op pain management reviewed. 6. Indocyanine green for biliary imaging. 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 History of Any Multi-Drug Resistant Organisms: None Reported Past Surgical History: Breast Surgery, Hysterectomy, Joint Replacement, Tonsillectomy Additional Past Surgical History / Comment(s): melanoma removed from chest, selene strabismus surgery, right breast lumpectomy (benign), surgery to correct acid reflux, selene hip replacements(left x 2), Past Anesthesia/Blood Transfusion Reactions: No Reported Reaction Smoking Status: Never smoker - Past Family History Mother Family Medical History: Cancer Additional Family Medical History / Comment(s): non hodgkins lymphoma Father Family Medical History: Cancer Additional Family Medical History / Comment(s): bone, prostate Sister(s) Family Medical History: Cancer Additional Family Medical History / Comment(s): breast Medications and Allergies Home Medications Medication Instructions Recorded Confirmed Type Atorvastatin Calcium [Lipitor] 20 mg PO HS 09/19/16 03/22/23 History Cetirizine HCl [Zyrtec] 10 mg PO DAILY 09/19/16 03/22/23 History Metoprolol Succinate [Toprol XL] 200 mg PO DAILY 09/19/16 03/22/23 History Prazosin [Minipress] 1 mg PO BID 04/29/17 03/22/23 History diphenhydrAMINE [Benadryl] 25 mg PO DAILY PRN 10/19/17 03/22/23 History Acetaminophen Tab [Tylenol] 650 mg PO Q6H PRN 03/22/23 03/22/23 History Dulaglutide [Trulicity] 1.5 mg SQ WE 03/22/23 03/22/23 History Fluticasone Propionate [Flonase 1 spray EA NOSTRIL DAILY PRN 03/22/23 03/22/23 History Allergy Relief] Insulin NPL/Insulin Lispro 70 units SQ 0800,1700 03/22/23 03/22/23 History [humaLOG MIX 75-25 VIAL] Olmesartan/Hydrochlorothiazide 1 tab PO DAILY 03/22/23 03/22/23 History [Olmesartan-Hctz 20-12.5 mg Tab] sitaGLIPtin [Januvia] 50 mg PO DAILY 03/22/23 03/22/23 History Allergies Allergy/AdvReac Type Severity Reaction Status Date / Time Penicillins Allergy Swelling Verified 03/22/23 14:16 of throat. hives
[~2023-03-25 08:30] MED LIST changes: +ACETAMINOPHEN TAB 500 MG TAB PO PRN; -DEXAMETHASONE SOD PHOSPHATE 10 MG/ML 1 ML VIAL IV ONE; +DEXAMETHASONE SOD PHOSPHATE 4 MG/ML 1 ML VIAL IV ONE; +HEPARIN SODIUM,PORCINE 5,000 UNIT/ML 1 ML VIAL SQ PRN; +HYDROmorphone 0.5 MG/0.5 ML SYRINGE IVP PRN; +LIDOCAINE 1% (10MG/ML) FOR IV START INTRADERMA PRN; -LIDOCAINE 1% 20 ML VIAL (10MG/ML) FOR IV START INTRADERMA PRN; +ONDANSETRON 4 MG/2 ML VIAL IVP PRN; -Pre Op ABX Message 1 EACH MISC MISCELLANE ONE; +droPERidol 5 MG/2 ML VIAL IVP ONE
[2023-03-25 09:09] LABS: Glucose,Whole Blood 221 mg/dL (70-110)
[2023-03-25 09:13] LABS: Basophils % (A) 0 %; Eosinophils # (A) 0.1 k/uL (0-0.7); Eosinophils % (A) 1 %; HCT 41.6 % (34.0-46.0); Lymphocytes % (A) 10 %; MCH 29.3 pg (25.0-35.0); MCHC 33.6 g/dL (31.0-37.0); MCV 87.2 fL (80.0-100.0); Mean Platelet Volume 8.7; Monocytes # (A) 0.2 k/uL (0-1.0); Monocytes % (A) 2 %; Neutrophils # (A) 8.5 k/uL (1.3-7.7); Neutrophils % (A) 86 %; Platelet Count 261 k/uL (150-450); Poikilocytosis Slight; RBC 4.77 m/uL (3.80-5.40); RDW 15.1 % (11.5-15.5); WBC 9.9 k/uL (3.8-10.6)
[2023-03-25 09:23] LABS: ALT 68 U/L (4-34); AST 44 U/L (14-36); African American GFR (CKD) 48 (>60 ml/min/1.73 sqM); Albumin 4.4 g/dL (3.5-5.0); Alkaline Phosphatase 86 U/L (38-126); Anion Gap 16 mmol/L; Blood Urea Nitrogen 30 mg/dL (7-17); Calcium 9.4 mg/dL (8.4-10.2); Carbon Dioxide 12 mmol/L (22-30); Chloride 107 mmol/L (98-107); Glucose 212 mg/dL (74-99); Non-African American GFR(CKD) 42 (>60 ml/min/1.73 sqM); Potassium 4.5 mmol/L (3.5-5.1); Sodium 135 mmol/L (137-145); Total Bilirubin 1.3 mg/dL (0.2-1.3); Total Protein 7.1 g/dL (6.3-8.2)
[2023-03-25] MEDS ORDERED: GLYCOPYRROLATE 0.2 MG/ML 2 ML VIAL ONE (09:37)
[2023-03-25] MEDS ORDERED: PROPOFOL 10 MG/ML 20 ML VIAL IV ONE (09:37)
[2023-03-25] MEDS ORDERED: SUGAMMADEX SODIUM 200 MG/2 ML SDV IV ONE (09:37)
[2023-03-25] MEDS ORDERED: SUCCINYLCHOLINE CHLORIDE 200 MG/10 ML VIAL IV ONE (09:37)
[2023-03-25] MEDS ORDERED: ROCURONIUM 10 MG/ML (5 ML VIAL) IV ONE (09:37)
[2023-03-25] MEDS ORDERED: INDOCYANINE GREEN 25 MG VIAL IV ONE (09:37)
[2023-03-25] MEDS ORDERED: LIDOCAINE 1% INJ 10MG/ML (20 ML MDV) ONE (09:37)
[2023-03-25] MEDS ORDERED: NEOSTIGMINE 1 MG/ML 10 ML VIAL ONE (09:37)
[2023-03-25] MEDS ORDERED: KETOROLAC 15 MG/ML 1 ML VIAL ONE (09:37)
[2023-03-25] MEDS ORDERED: fentaNYL (PF) 50 MCG/ML 2 ML AMP ONE (09:37)
[2023-03-25] MEDS ORDERED: LIDOCAINE 0.5%-EPI 1:200,000 50 ML VIAL SQ ONE (09:41)
[2023-03-25 11:18] LABS: Glucose,Whole Blood 227 mg/dL (70-110)
[2023-03-25] MEDS ORDERED: SODIUM CHLORIDE 0.9% 1,000 ML IV ONE (11:20)
[2023-03-25 11:29] VITALS: TEMP 96.8
[2023-03-25 12:19] VITALS: RESP 20
[2023-03-25 12:45] VITALS: BP 116/58; PULSE 107
--- NOTE | 2023-03-25 13:17 | P.OP ---
Date of Procedure: 03/25/23 Description of Procedure: SURGEON: MAGALI LOVELACE MD PREOPERATIVE DIAGNOSES: 1. Symptomatic gallstone 2. Right upper quadrant abdominal pain POSTOPERATIVE DIAGNOSES: 1. Symptomatic gallstone 2. Right upper quadrant abdominal pain 3. Chronic cholecystitis 4. Peritoneal adhesions, right upper quadrant OPERATION: Robotic-assisted da Gloria Xi laparoscopic cholecystectomy, multiport with FIREFLY ESTIMATED BLOOD LOSS: 5 mL. SPECIMENS REMOVED: Gallbladder. COMPLICATIONS: None. OPERATIVE FINDINGS: 1. Moderate scarring over entire gallbladder with peritoneal adhesions, pericholecystic with features of chronic cholecystitis INDICATIONS: The patient is a 72-year-old female who presents with symptomatic gallstones. Robotic assisted laparoscopic approach was described. Benefits and risks of the procedure including but not limited to bleeding, infection, injury to the biliary tree was described. Informed consent was obtained. DESCRIPTION OF PROCEDURE: Patient was brought to the operating room, placed in supine position. After general induction, the abdomen had been prepped and draped in standard sterile fashion. The robotic da Gloria XI system was primed. After a timeout protocol was performed, the patient had been prepped and draped in standard sterile fashion. The patient was injected with indocyanine green. A 5 mm 0 degrees laparoscopic trocar entry was performed along the left upper quadrant. The abdomen insufflated to 15 mmHg pressure which was tolerated well. Diagnostic laparoscopy demonstrated no injury to bowel viscera or mesentery. The liver surface was unremarkable. Next, two 8 mm robotic ports were placed along the right upper abdomen. The camera 8-mm port was maintained along the epigastrium. Another 8 mm port was placed along the left upper abdominal wall after exchanging the 5 mm port. Please note that the ports were placed at least 10 to 15 cm away from the target anatomy of the gallbladder. The robot was docked along the left lateral abdomen. The patient was repositioned in reverse Trendelenburg position. Using a grasper for arm 3, a grasper for arm 4, including hook cautery for arm 1, the robotic system was docked and primed as described. Instruments were interchanged by the assistant analyst including hook cautery, Bovie cautery and clip appliers. I had sat at the console. The gallbladder was scarred with peritoneal adhesions. Lysis of adhesions was performed to free the gallbladder from the surrounding tissues. Next attention was brought to the infundibulum and cystic structures. The infundibulum and cystic duct were dissected free from surrounding tissues. The cystic duct was isolated. FIREFLY was used to identify the cystic artery and cystic structures. A critical view of safety was obtained. Large PLASTIC clips were used throughout the entire case. Using a clip dairy inspector, 2 clips were placed at the junction of the infundibulum and cystic duct. The cystic duct was divided between clips. Next, the cystic artery was similarly clipped and cauterized. Electro-Bovie cautery was used to remove the gallbladder from the hepatic fossa. Hemostasis was checked and found to be adequate. The robot was undocked. I re-scrubbed into the case. Using a 10 mm Endo Catch bag via the left upper quadrant incision, the specimen was removed from the abdominal cavity. All pneumoperitoneum instruments were evacuated from the abdominal cavity. The incisions were reapproximated using 4-0 Monocryl in an interrupted subcuticular fashion. Fascial defects were less than 8 mm in size. Please note along the trocar sites, local anesthetic was placed as a field block prior to insertion of all instruments. Liquid glue was applied to the skin. At the end of the procedure needle, sponge, and instrument count had been verified correct by the deployment technician. The patient was transferred to postanesthesia care unit in stable condition. Intraoperative films were shared with the patient's family. Plan - Discharge Summary Discharge Rx Participant: No New Discharge Prescriptions: New Simethicone [Gas-X] 125 mg PO AC-TID PRN #20 capsule PRN Reason: Pain Acetaminophen Tab [Tylenol Tab] 1,000 mg PO Q6HR PRN #30 tablet PRN Reason: Pain Continue Metoprolol Succinate [Toprol XL] 200 mg PO DAILY Cetirizine HCl [Zyrtec] 10 mg PO DAILY Atorvastatin Calcium [Lipitor] 20 mg PO HS Prazosin [Minipress] 1 mg PO BID diphenhydrAMINE [Benadryl] 25 mg PO DAILY PRN PRN Reason: Allergy Symptoms Dulaglutide [Trulicity] 1.5 mg SQ WE sitaGLIPtin [Januvia] 50 mg PO DAILY Olmesartan/Hydrochlorothiazide [Olmesartan-Hctz 20-12.5 mg Tab] 1 tab PO DAILY Insulin NPL/Insulin Lispro [humaLOG MIX 75-25 VIAL] 70 units SQ 0800,1700 Fluticasone Propionate [Flonase Allergy Relief] 1 spray EA NOSTRIL DAILY PRN PRN Reason: Allergy Symptoms Discontinued Acetaminophen Tab [Tylenol] 650 mg PO Q6H PRN PRN Reason: Pain Discharge Medication List Atorvastatin Calcium [Lipitor] 20 mg PO HS 09/19/16 [History] Cetirizine HCl [Zyrtec] 10 mg PO DAILY 09/19/16 [History] Metoprolol Succinate [Toprol XL] 200 mg PO DAILY 09/19/16 [History] Prazosin [Minipress] 1 mg PO BID 04/29/17 [History] diphenhydrAMINE [Benadryl] 25 mg PO DAILY PRN 10/19/17 [History] Dulaglutide [Trulicity] 1.5 mg SQ WE 03/22/23 [History] Fluticasone Propionate [Flonase Allergy Relief] 1 spray EA NOSTRIL DAILY PRN 03/22/23 [History] Insulin NPL/Insulin Lispro [humaLOG MIX 75-25 VIAL] 70 units SQ 0800,1700 03/22/23 [History] Olmesartan/Hydrochlorothiazide [Olmesartan-Hctz 20-12.5 mg Tab] 1 tab PO DAILY 03/22/23 [History] sitaGLIPtin [Januvia] 50 mg PO DAILY 03/22/23 [History] Acetaminophen Tab [Tylenol Tab] 1,000 mg PO Q6HR PRN #30 tablet 03/25/23 [Rx] Simethicone [Gas-X] 125 mg PO AC-TID PRN #20 capsule 03/25/23 [Rx] Follow up Appointment(s)/Referral(s): Magali Lovelace MD [STAFF PHYSICIAN] - 03/29/23 (FOLLOW UP 03/29/23 TELEHEATH) Patient Instructions/Handouts: *[facility] - Managing Your Pain After Surgery Without Opioids, *[facility] - (Anesthesia) Discharge Instructions Outpatient Surgery, Low Fat Diet (DC), Laparoscopic Cholecystectomy (DC) Activity/Diet/Wound Care/Special Instructions: TELEHEALTH - DR WILL CALL YOU BETWEEN 8 am to 8 pm Recommend low-fat diet for the next 2 days. No lifting over 10 pounds in 2 weeks until Apr 08August shower. No bath tub soaks for two weeks until Apr 08 Diet as tolerated. Use Tylenol, simethicone scheduled for the next 24-48 hours for best pain relief. Use ice along incisions for today to prevent swelling. HAD TYLENOL AT 9:36 Discharge Disposition: HOME SELF-CARE
== END 2023-03-25 12:52 | disposition home or self-care (01) ==
LOC: OR 08:30
PROVIDERS: ATTEND Surgery Plastic and Reconstructive Surgery
DX: K80.10 Calculus of gallbladder with chronic cholecystitis without obstruction (principal); K66.0 Peritoneal adhesions (postprocedural) (postinfection); K21.9 Gastro-esophageal reflux disease without esophagitis; I10 Essential (primary) hypertension; E78.5 Hyperlipidemia, unspecified; E11.9 Type 2 diabetes mellitus without complications; M19.90 Unspecified osteoarthritis, unspecified site; J18.9 Pneumonia, unspecified organism; Z85.3 Personal history of malignant neoplasm of breast; Z85.820 Personal history of malignant melanoma of skin; Z80.7 Family history of other malignant neoplasms of lymphoid, hematopoietic and related tissues; Z79.84 Long term (current) use of oral hypoglycemic drugs; Z79.4 Long term (current) use of insulin; Z79.899 Other long term (current) drug therapy; Z88.0 Allergy status to penicillin; Z90.710 Acquired absence of both cervix and uterus; Z98.890 Other specified postprocedural states
CPT/HCPCS: 47562; S2900; 80053; 85025

== ENCOUNTER 2023-03-27 08:28 | Observation (INO) | payer MEDICARE, BC ==
[2023-03-27] MEDS ORDERED: ONDANSETRON 4 MG/2 ML VIAL IVP STA (08:48)
[2023-03-27] MEDS ORDERED: SODIUM CHLORIDE 0.9% 1,000 ML IV STA (08:48)
[2023-03-27] MEDS ORDERED: HYDROmorphone 1 MG/ML 1 ML SYRINGE IVP STA (08:48)
[2023-03-27] MEDS ORDERED: PANTOPRAZOLE 40 MG/10 ML VIAL IVP STA (08:48)
--- NOTE | 2023-03-27 08:50 | ED ---
General Adult HPI - General Chief complaint: Abdominal Pain Stated complaint: abd pain Time Seen by Provider: 03/27/23 08:33 Source: patient, EMS, RN notes reviewed Mode of arrival: EMS Limitations: no limitations - History of Present Illness Initial comments: Patient is a pleasant 72-year-old female presents emergency Department with abdominal discomfort. Patient is 2 days postop cholecystectomy by a robotic surgery with Dr. Vasquez. Patient is having nausea and vomiting, greater than 6 times daily. Patient is unable to tolerate solid food. Patient is tolerating fluids. No constipation or diarrhea. Patient has abdominal discomfort that is worse than what she would expect. Patient states it is somewhat severe. - Related Data Home Medications Medication Instructions Recorded Confirmed Atorvastatin Calcium [Lipitor] 20 mg PO HS 09/19/16 03/25/23 Cetirizine HCl [Zyrtec] 10 mg PO DAILY 09/19/16 03/25/23 Metoprolol Succinate [Toprol XL] 200 mg PO DAILY 09/19/16 03/25/23 Prazosin [Minipress] 1 mg PO BID 04/29/17 03/25/23 diphenhydrAMINE [Benadryl] 25 mg PO DAILY PRN 10/19/17 03/25/23 Dulaglutide [Trulicity] 1.5 mg SQ WE 03/22/23 03/25/23 Fluticasone Propionate [Flonase 1 spray EA NOSTRIL DAILY PRN 03/22/23 03/25/23 Allergy Relief] Insulin NPL/Insulin Lispro 70 units SQ 0800,1700 03/22/23 03/25/23 [humaLOG MIX 75-25 VIAL] Olmesartan/Hydrochlorothiazide 1 tab PO DAILY 03/22/23 03/25/23 [Olmesartan-Hctz 20-12.5 mg Tab] sitaGLIPtin [Januvia] 50 mg PO DAILY 03/22/23 03/25/23 Previous Rx's Medication Instructions Recorded Acetaminophen Tab [Tylenol Tab] 1,000 mg PO Q6HR PRN #30 tablet 03/25/23 Simethicone [Gas-X] 125 mg PO AC-TID PRN #20 capsule 03/25/23 Allergies Allergy/AdvReac Type Severity Reaction Status Date / Time Penicillins Allergy Swelling Verified 03/27/23 08:36 of throat. hives Review of Systems ROS Statement: Those systems with pertinent positive or pertinent negative responses have been documented in the HPI. ROS Other: All systems not noted in ROS Statement are negative. 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 History of Any Multi-Drug Resistant Organisms: None Reported Past Surgical History: Breast Surgery, Cholecystectomy, Hysterectomy, Joint Replacement, Tonsillectomy Additional Past Surgical History / Comment(s): melanoma removed from chest, selene strabismus surgery, right breast lumpectomy (benign), surgery to correct acid reflux, selene hip replacements(left x 2), Past Anesthesia/Blood Transfusion Reactions: No Reported Reaction Past Psychological History: No Psychological Hx Reported Smoking Status: Never smoker Past Alcohol Use History: Rare Past Drug Use History: None Reported - Past Family History Mother Family Medical History: Cancer Additional Family Medical History / Comment(s): non hodgkins lymphoma Father Family Medical History: Cancer Additional Family Medical History / Comment(s): bone, prostate Sister(s) Family Medical History: Cancer Additional Family Medical History / Comment(s): breast General Exam Limitations: no limitations General appearance: alert, in no apparent distress Head exam: Present: normocephalic Eye exam: Present: normal appearance Neck exam: Present: normal inspection Respiratory exam: Present: normal lung sounds bilaterally Cardiovascular Exam: Present: regular rate, normal rhythm Expanded Peripheral pulses: 2+: Dorsalis Pedis (R), Dorsalis Pedis (L) GI/Abdominal exam: Present: soft, tenderness (Mild to moderate diffuse tenderness), normal bowel sounds. Absent: guarding, rebound, rigid, pulsatile mass Extremities exam: Present: normal inspection Neurological exam: Present: alert Psychiatric exam: Present: normal affect, normal mood Skin exam: Present: normal color Course Vital Signs 03/27/23 03/27/23 03/27/23 08:31 08:36 10:30 Temperature 98 F Pulse Rate 99 90 Respiratory 18 18 Rate Blood Pressure 171/77 157/58 O2 Sat by Pulse 95 98 Oximetry Medical Decision Making - Medical Decision Making Was pt. sent in by a medical professional or institution (ROBERTA Rodriguez, RN ORTHOPEDIC, urgent care, hospital, or intermediate...) When possible be specific @ -No Did you speak to anyone other than the patient for history (EMS, parent, family, police, friend...)? What history was obtained from this source @ -No Did you review nursing and triage notes (agree or disagree)? Why? @ -I reviewed and agree with nursing and triage notes Were old charts reviewed (outside hosp., previous admission, EMS record, old EKG, old radiological studies, urgent care reports/EKG's, intermediate records)? Report findings @ -Previous admission reviewed. Differential Diagnosis (chest pain, altered mental status, abdominal pain women, abdominal pain men, vaginal bleeding, weakness, fever, dyspnea, syncope, headache, dizziness, GI bleed, back pain, seizure, CVA, palpatations, mental health, musculoskeletal)? @ -Differential Abdominal Pain Women: Appendicitis, Cholecystitis, diverticulosis, ischemic bowel, pancreatitis, hepatitis, UTI, gastroenteritis, AAA, incarcerated hernia, bowel obstruction, constipation, inflammatory bowel, hepatitis, peptic ulcer disease, splenic infarction, perforated viscus, vulvitis, ovarian torsion, PID, kidney stone, placenta abruption, this is not meant to be an all-inclusive list EKG interpreted by me (3pts min.). @ -As above X-rays interpreted by me (1pt min.). @ -None done CT interpreted by me (1pt min.). @ -Computed tomography scan shows postoperative changes. Duodenitis. U/S interpreted by me (1pt. min.). @ -None done What testing was considered but not performed or refused? (CT, X-rays, U/S, labs)? Why? @ -None What meds were considered but not given or refused? Why? @ -None Did you discuss the management of the patient with other professionals (professionals i.e. ROBERTA Rodriguez, RN ORTHOPEDIC, lab, RT, psych nurse, social contact worker, range master, teacher, staff nuclear weapons officer, classification case manager)? Give summary @ -Case was discussed with Dr. Ge who will admit covering Dr. Vasquez. Was smoking cessation discussed for >3mins.? @ -No Was critical care preformed (if so, how long)? @ -No Were there social determinants of health that impacted care today? How? (Homelessness, low income, unemployed, alcoholism, drug addiction, transportation, low edu. Level, literacy, decrease access to med. care, fdc, rehab)? @ -No Was there de-escalation of care discussed even if they declined (Discuss DNR or withdrawal of care, Hospice)? DNR status @ -No What co-morbidities impacted this encounter? (DM, HTN, Smoking, COPD, CAD, Cancer, CVA, ARF, Chemo, Hep., AIDS, mental health diagnosis, sleep apnea, morbid obesity)? @ -None Was patient admitted / discharged? Hospital course, mention meds given and route, prescriptions, significant lab abnormalities, going to OR and other pertinent info. @ -Patient reevaluated. Patient and family updated on results and plan. Patient will be admitted. Admission orders written. Pain medicine and nausea medicine as needed. Repeat labs tomorrow. Undiagnosed new problem with uncertain prognosis? @ -No Drug Therapy requiring intensive monitoring for toxicity (Heparin, Nitro, Insulin, Cardizem)? @ -No Were any procedures done? @ -No Diagnosis/symptom? @ -Duodenitis Acute, or Chronic, or Acute on Chronic? @ -Acute Uncomplicated (without systemic symptoms) or Complicated (systemic symptoms)? @ -default Side effects of treatment? @ -No Exacerbation, Progression, or Severe Exacerbation? @ -No Poses a threat to life or bodily function? How? (Chest pain, USA, MS, pneumonia, PE, COPD, DKA, ARF, appy, cholecystitis, CVA, Diverticulitis, Homicidal, Suicidal, threat to staff... and all critical care pts) @ -No - Lab Data Result diagrams: 03/27/23 09:06 03/27/23 09:06 Lab Results 03/27/23 03/27/23 03/27/23 Range/Units 09:06 09:06 09:06 WBC 15.3 H (3.8-10.6) k/uL RBC 5.02 (3.80-5.40) m/uL Hgb 14.5 (11.4-16.0) gm/dL Hct 44.4 (34.0-46.0) % MCV 88.5 (80.0-100.0) fL MCH 28.8 (25.0-35.0) pg MCHC 32.5 (31.0-37.0) g/dL RDW 15.2 (11.5-15.5) % Plt Count 279 (150-450) k/uL MPV 8.5 Neutrophils % 86 % Lymphocytes % 5 % Monocytes % 6 % Eosinophils % 1 % Basophils % 0 % Neutrophils # 13.2 H (1.3-7.7) k/uL Lymphocytes # 0.8 L (1.0-4.8) k/uL Monocytes # 0.9 (0-1.0) k/uL Eosinophils # 0.1 (0-0.7) k/uL Basophils # 0.1 (0-0.2) k/uL Poikilocytosis Slight PT 11.5 (10.0-12.5) sec INR 1.1 (<1.2) APTT 22.3 (22.0-30.0) sec Sodium (137-145) mmol/L Potassium (3.5-5.1) mmol/L Chloride (98-107) mmol/L Carbon Dioxide (22-30) mmol/L Anion Gap mmol/L BUN (7-17) mg/dL Creatinine (0.52-1.04) mg/dL Est GFR (CKD-EPI)AfAm (>60 ml/min/1.73 sqM) Est GFR (CKD-EPI)NonAf (>60 ml/min/1.73 sqM) Glucose (74-99) mg/dL Calcium (8.4-10.2) mg/dL Total Bilirubin (0.2-1.3) mg/dL AST (14-36) U/L ALT (4-34) U/L Alkaline Phosphatase (38-126) U/L Total Protein (6.3-8.2) g/dL Albumin (3.5-5.0) g/dL Amylase (30-110) U/L Lipase (23-300) U/L Urine Color Light Yellow Urine Appearance Clear (Clear) Urine pH 5.5 (5.0-8.0) Ur Specific Iva 1.024 (1.001-1.035) Urine Protein Trace H (Negative) Urine Glucose (UA) Negative (Negative) Urine Ketones Negative (Negative) Urine Blood Negative (Negative) Urine Nitrite Negative (Negative) Urine Bilirubin Negative (Negative) Urine Urobilinogen <2.0 (<2.0) mg/dL Ur Leukocyte Esterase Negative (Negative) 03/27/23 Range/Units 09:06 WBC (3.8-10.6) k/uL RBC (3.80-5.40) m/uL Hgb (11.4-16.0) gm/dL Hct (34.0-46.0) % MCV (80.0-100.0) fL MCH (25.0-35.0) pg MCHC (31.0-37.0) g/dL RDW (11.5-15.5) % Plt Count (150-450) k/uL MPV Neutrophils % % Lymphocytes % % Monocytes % % Eosinophils % % Basophils % % Neutrophils # (1.3-7.7) k/uL Lymphocytes # (1.0-4.8) k/uL Monocytes # (0-1.0) k/uL Eosinophils # (0-0.7) k/uL Basophils # (0-0.2) k/uL Poikilocytosis PT (10.0-12.5) sec INR (<1.2) APTT (22.0-30.0) sec Sodium 130 L (137-145) mmol/L Potassium 4.2 (3.5-5.1) mmol/L Chloride 103 (98-107) mmol/L Carbon Dioxide 17 L (22-30) mmol/L Anion Gap 10 mmol/L BUN 37 H (7-17) mg/dL Creatinine 1.00 (0.52-1.04) mg/dL Est GFR (CKD-EPI)AfAm 65 (>60 ml/min/1.73 sqM) Est GFR (CKD-EPI)NonAf 56 (>60 ml/min/1.73 sqM) Glucose 318 H (74-99) mg/dL Calcium 7.8 L (8.4-10.2) mg/dL Total Bilirubin 0.7 (0.2-1.3) mg/dL AST 20 (14-36) U/L ALT 31 (4-34) U/L Alkaline Phosphatase 67 (38-126) U/L Total Protein 5.2 L (6.3-8.2) g/dL Albumin 3.0 L (3.5-5.0) g/dL Amylase 518 H* (30-110) U/L Lipase 47 (23-300) U/L Urine Color Urine Appearance (Clear) Urine pH (5.0-8.0) Ur Specific Iva (1.001-1.035) Urine Protein (Negative) Urine Glucose (UA) (Negative) Urine Ketones (Negative) Urine Blood (Negative) Urine Nitrite (Negative) Urine Bilirubin (Negative) Urine Urobilinogen (<2.0) mg/dL Ur Leukocyte Esterase (Negative) Disposition Clinical Impression: Duodenitis Disposition: ADMITTED IP TO THIS HOSP Is patient prescribed a controlled substance at d/c from ED?: No Referrals: Anupama Johnson MD [Primary Care Provider] - 1-2 days Time of Disposition: 11:22
[2023-03-27 09:23] LABS: Basophils # (A) 0.1 k/uL (0-0.2); Basophils % (A) 0 %; Eosinophils # (A) 0.1 k/uL (0-0.7); Eosinophils % (A) 1 %; HCT 44.4 % (34.0-46.0); HGB 14.5 gm/dL (11.4-16.0); Lymphocytes # (A) 0.8 k/uL (1.0-4.8); Lymphocytes % (A) 5 %; MCH 28.8 pg (25.0-35.0); MCHC 32.5 g/dL (31.0-37.0); MCV 88.5 fL (80.0-100.0); Mean Platelet Volume 8.5; Monocytes # (A) 0.9 k/uL (0-1.0); Monocytes % (A) 6 %; Neutrophils # (A) 13.2 k/uL (1.3-7.7); Neutrophils % (A) 86 %; Platelet Count 279 k/uL (150-450); Poikilocytosis Slight; RBC 5.02 m/uL (3.80-5.40); RDW 15.2 % (11.5-15.5); WBC 15.3 k/uL (3.8-10.6)
[2023-03-27 09:32] LABS: Appearance,Urine Clear (Clear); Bilirubin,Urine Negative (Negative); Blood,Urine Negative (Negative); Color,Urine Light Yellow; Glucose,Urine (UA) Negative (Negative); Ketones,Urine Negative (Negative); Leukocyte Esterase,Urine Negative (Negative); Nitrite,Urine Negative (Negative); PH, Urine 5.5 (5.0-8.0); Protein,Urine Trace (Negative); Specific Gravity,Urine 1.024 (1.001-1.035); Urobilinogen,Urine <2.0 mg/dL (<2.0)
[2023-03-27 09:48] LABS: ALT 31 U/L (4-34); AST 20 U/L (14-36); African American GFR (CKD) 65 (>60 ml/min/1.73 sqM); Alkaline Phosphatase 67 U/L (38-126); Anion Gap 10 mmol/L; Blood Urea Nitrogen 37 mg/dL (7-17); Calcium 7.8 mg/dL (8.4-10.2); Carbon Dioxide 17 mmol/L (22-30); Chloride 103 mmol/L (98-107); Glucose 318 mg/dL (74-99); Lipase 47 U/L (23-300); Non-African American GFR(CKD) 56 (>60 ml/min/1.73 sqM); Potassium 4.2 mmol/L (3.5-5.1); Sodium 130 mmol/L (137-145); Total Bilirubin 0.7 mg/dL (0.2-1.3); Total Protein 5.2 g/dL (6.3-8.2)
[2023-03-27 09:49] LABS: INR 1.1 (<1.2); Partial Thromboplastin Time 22.3 sec (22.0-30.0); Prothrombin Time 11.5 sec (10.0-12.5)
[2023-03-27 10:02] LABS: Amylase 518 U/L (30-110)
[2023-03-27] MEDS ORDERED: HYDROmorphone 0.5 MG/0.5 ML SYRINGE IVP STA (10:33)
--- NOTE | 2023-03-27 10:53 | CT ---
EXAMINATION TYPE: CT abdomen pelvis w con CT DLP: 1236.9 mGycm, Automated exposure control for dose reduction was used. DATE OF EXAM: 03/27/2023 10:27 AM COMPARISON: MR liver 11/27/2022. CLINICAL INDICATION:Female, 72 years old with history of abdominal pain; abd pain TECHNIQUE: Axial CT of the ;CT abdomen pelvis w con;Sagittal and coronal reformats were created on a separate workstation. Contrast used:100 mL of Isovue 300 with IV Contrast, (none if empty) Oral contrast used: without Oral Contrast (none if empty) FINDINGS: LOWER CHEST: Unremarkable ABDOMEN LIVER: Unremarkable GALLBLADDER AND BILE DUCTS: The gallbladder appears surgically absent. PANCREAS: Mild inflammation changes around the pancreatic head. SPLEEN: Unremarkable. ADRENAL GLANDS: Unremarkable. KIDNEYS AND URETERS: No evidence of hydronephrosis or renal calculus. The ureters are unremarkable. PELVIS BLADDER: Unremarkable REPRODUCTIVE: Unremarkable. ABDOMEN & PELVIS STOMACH AND BOWEL: No evidence of bowel obstruction. The duodenal wall on the second portion near the surgical bed is mildly hyperemic with fat stranding changes. No organizing fluid collections. Henao measuring up to 4 mm in thickness. Mild Fat stranding changes do the duodenum and pancreatic head. PERITONEUM/RETROPERITONEUM: No evidence of pneumoperitoneum or free fluid. VASCULATURE: No evidence of aortic aneurysm. MUSCULOSKELETAL: No acute osseous abnormalities, bilateral hip arthroplasties with hardware intact. G rade 1 anterolisthesis of L4 and L5 with disc bulging with at least moderate spinal canal stenosis. LYMPH NODES: No gross evidence for lymphadenopathy. SOFT TISSUE/ABDOMINAL WALL: Fat-containing umbilical hernia. IMPRESSION: 1. Postsurgical changes with cholecystectomy. No organizing fluid collection. 2. There is evidence of duodenitis. Correlate with serum lipase to rule out component of pancreatiti s. No organizing fluid collection. 3. Grade 1 L4-L5 anterolisthesis with at least moderate spinal canal stenosis secondary to disc unco vering.
[2023-03-27] MEDS ORDERED: HYDROmorphone 0.5 MG/0.5 ML SYRINGE IVP PRN (11:23)
[2023-03-27] MEDS ORDERED: ONDANSETRON 4 MG/2 ML VIAL IVP PRN (11:23)
[2023-03-27] MEDS ORDERED: NALOXONE 0.4 MG/ML 1 ML VIAL IV PRN (11:23)
[2023-03-27] MEDS: SODIUM CHLORIDE 0.9% 1,000 ML IV SCH ×2 (11:49→20:08)
[2023-03-27] MEDS: HYDROmorphone 1 MG/ML 1 ML SYRINGE IVP PRN ×2 (14:06→19:41)
[2023-03-27 16:19] LABS: Glucose,Whole Blood 187 mg/dL (70-110)
[2023-03-27] MEDS ORDERED: ACETAMINOPHEN TAB 500 MG TAB PO PRN (18:28)
[2023-03-27] MEDS ORDERED: SIMETHICONE 80 MG CHEWABLE PO PRN (18:42)
[2023-03-27] MEDS: PRAZOSIN 1 MG CAP PO SCH (20:07)
[2023-03-27] MEDS ORDERED: ATORVASTATIN 20 MG TAB PO SCH (21:00)
[2023-03-27 21:04] LABS: Glucose,Whole Blood 189 mg/dL (70-110)
[2023-03-28 00:18] VITALS: RESP 16
[2023-03-28] MEDS: HYDROmorphone 1 MG/ML 1 ML SYRINGE IVP PRN (01:37)
[2023-03-28] MEDS: SODIUM CHLORIDE 0.9% 1,000 ML IV SCH ×2 (02:51→09:33)
[2023-03-28 06:08] LABS: Glucose,Whole Blood 168 mg/dL (70-110)
[2023-03-28] MEDS ORDERED: METOPROLOL SUCCINATE (ER) 100 MG TAB.ER.24H PO SCH (09:00)
[2023-03-28] MEDS ORDERED: LOSARTAN 50 MG TAB PO SCH (09:00)
[2023-03-28] MEDS ORDERED: PANTOPRAZOLE 40 MG/10 ML VIAL IV SCH ×2 (09:00→21:00)
[2023-03-28] MEDS ORDERED: LINAGLIPTIN 5 MG TABLET PO SCH (09:00)
[2023-03-28] MEDS ORDERED: hydroCHLOROthiazide 12.5 MG CAP PO SCH (09:00)
[2023-03-28 09:05] LABS: Basophils # (A) 0.04 X 10*3/uL (0.00-0.10); Basophils % (A) 0.4 %; Eosinophils # (A) 0.21 X 10*3/uL (0.04-0.35); Eosinophils % (A) 2.1 %; HCT 37.9 % (37.2-46.3); HGB 12.2 g/dL (12.0-15.0); Lymphocytes # (A) 1.13 X 10*3/uL (0.90-5.00); Lymphocytes % (A) 11.4 %; MCH 28.3 pg (27.0-32.0); MCHC 32.2 g/dL (32.0-37.0); MCV 87.9 FL (80.0-97.0); Mean Platelet Volume 10.1 FL (9.5-12.2); Monocytes # (A) 0.91 X 10*3/uL (0.20-1.00); Monocytes % (A) 9.2 %; NRBC Per 100 WBC 0 X 10*3/uL (0.00-0.01); Neutrophils # (A) 7.55 X 10*3/uL (1.80-7.70); Platelet Count 298 X 10*3/uL (140-440); RBC 4.31 X 10*6/uL (4.10-5.20); RDW 15.1 % (11.5-14.5); WBC 9.93 X 10*3/uL (4.50-10.00)
[2023-03-28] MEDS: PRAZOSIN 1 MG CAP PO SCH (09:32)
[2023-03-28] MEDS: SIMETHICONE 80 MG CHEWABLE PO SCH ×3 (10:10→18:02)
[2023-03-28 10:15] LABS: ALT 22 U/L (8-44); AST 10 U/L (13-35); Albumin/Globulin Ratio 1.76 Ratio (1.60-3.17); Alkaline Phosphatase 59 U/L (41-126); BUN/Creat Ratio 23.73 Ratio (12.00-20.00); Blood Urea Nitrogen 26.1 mg/dL (9.0-27.0); Calcium 8.4 mg/dL (8.7-10.3); Carbon Dioxide 17.7 mmol/L (21.6-31.8); Chloride 108 mmol/L (96-109); Globulin 1.7 g/dL (1.6-3.3); Glucose 198 mg/dL (70-110); Sodium 136 mmol/L (135-145); Total Bilirubin 0.5 mg/dL (0.3-1.2); Total Protein 4.7 g/dL (6.2-8.2)
[2023-03-28 12:19] LABS: Glucose,Whole Blood 204 mg/dL (70-110)
[2023-03-28] MEDS: ACETAMINOPHEN TAB 500 MG TAB PO SCH ×2 (12:30→18:02)
--- NOTE | 2023-03-28 13:16 | P.CONS ---
History of Present Illness - Reason for Consult Hyponatremia - History of Present Illness Patient was on 2-year-old female came in with compensable bilateral lower quadrant abdominal pain and diarrhea 2 days preceding this. Patient had a CT of the abdomen which only showed the or tinnitus without any other significant abnormality patient lipase is mildly elevated to 530. Repeat ultrasound of the abdomen is being obtained patient the pain improved but with pain medication patient pain was severe sharp in nature and nonradiating and localized to bilateral lower abdominal quadrants. Denied any UTI symptoms urine is not significantly abnormal. She sodium was slightly low because of hydrochlorothiazide and diarrhea. Which improved at this time REVIEW OF SYSTEMS: CONSTITUTIONAL: No fever, no malaise, no fatigue. HEENT: No recent visual problems or hearing problems. Denied any sore throat. CARDIOVASCULAR: No chest pain, orthopnea, PND, no palpitations, no syncope. PULMONARY: No shortness of breath, no cough, no hemoptysis. GASTROINTESTINAL: As mentioned in HPI NEUROLOGICAL: No headaches, no weakness, no numbness. HEMATOLOGICAL: Denies any bleeding or petechiae. GENITOURINARY: Denies any burning micturition, frequency, or urgency. MUSCULOSKELETAL/RHEUMATOLOGICAL: Denies any joint pain, swelling, or any muscle pain. ENDOCRINE: Denies any polyuria or polydipsia. The rest of the 14-point review of systems is negative. PHYSICAL EXAMINATION: GENERAL: The patient is alert and oriented x3, not in any acute distress. Well developed, well nourished. HEENT: Pupils are round and equally reacting to light. EOMI. No scleral icterus. No conjunctival pallor. Normocephalic, atraumatic. No pharyngeal erythema. No thyromegaly. CARDIOVASCULAR: S1 and S2 present. No murmurs, rubs, or gallops. PULMONARY: Chest is clear to auscultation, no wheezing or crackles. ABDOMEN: Soft, nontender, nondistended, normoactive bowel sounds. No palpable organomegaly. MUSCULOSKELETAL: No joint swelling or deformity. EXTREMITIES: No cyanosis, clubbing, or pedal edema. NEUROLOGICAL: Gross neurological examination did not reveal any focal deficits. SKIN: No rashes. Assessment and plan Abdominal pain etiology is not clear patient's symptomatology is not consistent with the or tinnitus but that the only abnormality on the CAT scan, continue with Protonix IV. Lipase is not high enough for pancreatitis. We'll monitor the patient patient may have enteritis causing these symptoms. -Hyponatremia: Secondary to hydrochlorothiazide which will be held. Patient may continue hydrochlorothiazide as her blood pressure is well controlled with SHARON inhibitor and hydrochlorothiazide combination. Hyponatremia may be secondary to diarrhea as well. But patient will need to repeat basic metabolic profile tested for about a week if she continues hydro-thiazide -2 diabetes mellitus patient will resume her home regimen -Hyperlipidemia patient can be resumed on atorvastatin. 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 History of Any Multi-Drug Resistant Organisms: None Reported Past Surgical History: Breast Surgery, Cholecystectomy, Hysterectomy, Joint Replacement, Tonsillectomy Additional Past Surgical History / Comment(s): melanoma removed from chest, selene strabismus surgery, right breast lumpectomy (benign), surgery to correct acid reflux, selene hip replacements(left x 2), Past Anesthesia/Blood Transfusion Reactions: No Reported Reaction Past Psychological History: No Psychological Hx Reported Smoking Status: Never smoker Past Alcohol Use History: Rare Past Drug Use History: None Reported - Past Family History Mother Family Medical History: Cancer Additional Family Medical History / Comment(s): non hodgkins lymphoma Father Family Medical History: Cancer Additional Family Medical History / Comment(s): bone, prostate Sister(s) Family Medical History: Cancer Additional Family Medical History / Comment(s): breast Medications and Allergies Home Medications Medication Instructions Recorded Confirmed Type Atorvastatin Calcium [Lipitor] 20 mg PO HS 09/19/16 03/27/23 History Metoprolol Succinate [Toprol XL] 200 mg PO DAILY 09/19/16 03/27/23 History Prazosin [Minipress] 1 mg PO BID 04/29/17 03/27/23 History Dulaglutide [Trulicity] 1.5 mg SQ WE 03/22/23 03/28/23 History Insulin NPL/Insulin Lispro 70 units SQ BID 03/22/23 03/27/23 History [humaLOG MIX 75-25 VIAL] Olmesartan/Hydrochlorothiazide 1 tab PO DAILY 03/22/23 03/27/23 History [Olmesartan-Hctz 20-12.5 mg Tab] sitaGLIPtin [Januvia] 50 mg PO DAILY 03/22/23 03/27/23 History Acetaminophen Tab [Tylenol Tab] 1,000 mg PO Q6HR PRN #30 tablet 03/25/23 03/27/23 Rx Simethicone [Gas-X] 125 mg PO AC-TID PRN #20 capsule 03/25/23 03/27/23 Rx Allergies Allergy/AdvReac Type Severity Reaction Status Date / Time Penicillins Allergy Swelling Verified 03/27/23 13:16 of throat. hives Physical Exam Vitals: Vital Signs Temp Pulse Pulse Resp BP BP Pulse Ox 03/28/23 07:00 98.7 F 98 16 135/70 94 L 03/28/23 02:00 97.9 F 93 16 121/64 97 03/27/23 20:00 98.1 F 96 16 126/66 97 03/27/23 15:00 97.6 F 108 H 21 173/70 98 03/27/23 14:05 89 18 134/54 98 Intake and Output 03/27/23 03/28/23 03/28/23 22:59 06:59 14:59 Intake Total 594 Balance 594 Intake: Oral 594 Other: # Voids 1 2 Results CBC & Chem 7: 03/28/23 06:26 03/28/23 06:26 Labs: Abnormal Lab Results - Last 24 Hours (Table) 03/27/23 03/27/23 03/28/23 Range/Units 16:19 21:02 06:07 RDW (11.5-14.5) % Immature Gran # (0.00-0.04) X 10*3/uL Carbon Dioxide (21.6-31.8) mmol/L Est GFR (CKD-EPI) (>=60) BUN/Creatinine Ratio (12.00-20.00) Ratio Glucose (70-110) mg/dL POC Glucose (mg/dL) 187 H 189 H 168 H (70-110) mg/dL Calcium (8.7-10.3) mg/dL AST (13-35) U/L Total Protein (6.2-8.2) g/dL Albumin (3.8-4.9) g/dL 12/18/23 12/18/23 12/18/23 Range/Units 06:26 06:26 12:18 RDW 15.1 H (11.5-14.5) % Immature Gran # 0.09 H (0.00-0.04) X 10*3/uL Carbon Dioxide 17.7 L (21.6-31.8) mmol/L Est GFR (CKD-EPI) 53 L (>=60) BUN/Creatinine Ratio 23.73 H (12.00-20.00) Ratio Glucose 198 H (70-110) mg/dL POC Glucose (mg/dL) 204 H (70-110) mg/dL Calcium 8.4 L (8.7-10.3) mg/dL AST 10 L (13-35) U/L Total Protein 4.7 L (6.2-8.2) g/dL Albumin 3.0 L (3.8-4.9) g/dL
[2023-03-28 14:01] VITALS: BP 106/65; PULSE 86; TEMP 98.5
--- NOTE | 2023-03-28 14:12 | US ---
EXAMINATION TYPE: US gallbladder DATE OF EXAM: 03/28/2023 COMPARISON: CT CLINICAL INDICATION: Female, 72 years old with history of abdominal pain, recent cholecystectomy; ABD pain s/p cholecystectomy 2 days ago TECHNIQUE: Multiple sonographic images of the right upper quadrant are obtained. FINDINGS: EXAM MEASUREMENTS: Liver Length: 17.4 cm CBD: 0.4 cm Right Kidney: 11.3 x 4.5 x 4.8 cm [employer] MANAGER NOTES: Pancreas: Obscured by bowel gas Liver: Difficult to penetrate, heterogeneous Gallbladder: Surgically absent, small amount of fluid within GB fossa Evidence for sonographic Culver's sign: No CBD: wnl Right Kidney: wnl IMPRESSION: 1. Hepatomegaly
--- NOTE | 2023-03-28 15:25 | P.GSHP ---
History of Present Illness H&P Date: 03/28/23 CHIEF COMPLAINT: Abdominal pain HISTORY OF PRESENT ILLNESS: This is a 72-year-old female who presented to the hospital with complaints of increasing abdominal pain with nausea and vomiting had started the evening after she was discharged from the hospital after having her cholecystectomy. She is status post robotic cholecystectomy on 03/25/2023. Patient reports she's been having flatus and dark bowel movements. She complains of more of a lower left and right abdominal pain. Her computed carrie ography scan had shown duodenitis. Patient reports her last EGD and colonoscopy were in April 2022. She does report a history of peptic ulcer disease. PAST MEDICAL HISTORY: See list. PAST SURGICAL HISTORY: See list. MEDICATIONS: See list. ALLERGIES: See list. SOCIAL HISTORY: No illicit drug use. REVIEW OF SYSTEMS: CONSTITUTIONAL: Denies fever or chills. HEENT: Denies blurred vision, vision changes, or eye pain. Denies hemoptysis ENDOCRINE: Denies heat or cold intolerance. CARDIOVASCULAR: Denies chest pain or pressure. RESPIRATORY: No shortness of breath. GASTROINTESTINAL: Denies abdominal pain. Denies nausea or vomiting. NEURO: Denies history of seizures. PSYCH: No depression or suicidal ideation HEMATOLOGIC: Denies bleeding disorders. LYMPHATIC: The patient denies any lumps and bumps around the neck. GENITOURINARY: Denies any blood in urine or increased urinary frequency. MUSCULOSKELETAL: Denies myalgias. Denies joint swelling. Denies decreased range of motion beyond patients baseline. SKIN: Denies pruitis. Denies rash. PHYSICAL EXAM: VITAL SIGNS: Reviewed GENERAL: Well-developed in no acute distress. HEENT: No sclera icterus. Extraocular movements grossly intact. Moist buccal mucosa. Head is atraumatic, normocephalic. Hears conversational speech. No nasal drainage. NECK: Supple without lymphadenopathy. CHEST: Non-labored respirations and equal bilateral excursions. CARDIOVASCULAR: Palpable 2+ radial pulses. ABDOMEN: Soft. Nondistended. Incision sites are clean dry and intact. Patient is tender with palpation of the right lower quadrant and left lower quadrant. MUSCULOSKELETAL: No clubbing or cyanosis. NEUROLOGIC: No focal or lateralizing signs. Cranial nerves II through XII grossly intact. PSYCH: Appropriate affect. Alert and oriented to person, place and time. SKIN: Well perfused. Good skin turgor. LABORATORY DATA: WBC 15.3 down to 9.93 Hgb 12.2 platelets 298 Sodium is 136 potassium 4.0 creatinine 1.1 LFTs are normal Amylase elevated at 518 lipase 47 Urinalysis negative for infection IMAGING: Computed tomography scan abdomen and pelvis postsurgical changes with cholecystectomy no organizing fluid collection. There is evidence of duodenitis. Correlation with serum lipase to rule out component of pancreatitis. No organizing fluid collection. ASSESSMENT: 1. Abdominal pain with nausea and vomiting 2. Possible pancreatitis 3. Duodenitis noted on computed tomography scan 4. Chronic cholecystitis with symptomatic gallstones status post robotic laparoscopic cholecystectomy on 03/25/2023 PLAN: -Continue clear liquid diet -Continue IV fluids -Mylicon gas chews ordered scheduled -ordered gallbladder ultrasound -Increase PPI to twice a day -Continue supportive care Physician Fundraiser note has been reviewed by physician. Signing provider agrees with the documented findings, assessment, and plan of care. 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 History of Any Multi-Drug Resistant Organisms: None Reported Past Surgical History: Breast Surgery, Cholecystectomy, Hysterectomy, Joint Re placement, Tonsillectomy Additional Past Surgical History / Comment(s): melanoma removed from chest, selene strabismus surgery, right breast lumpectomy (benign), surgery to correct acid reflux, selene hip replacements(left x 2), Past Anesthesia/Blood Transfusion Reactions: No Reported Reaction Past Psychological History: No Psychological Hx Reported Smoking Status: Never smoker Past Alcohol Use History: Rare Past Drug Use History: None Reported - Past Family History Mother Family Medical History: Cancer Additional Family Medical History / Comment(s): non hodgkins lymphoma Father Family Medical History: Cancer Additional Family Medical History / Comment(s): bone, prostate Sister(s) Family Medical History: Cancer Additional Family Medical History / Comment(s): breast Medications and Allergies Home Medications Medication Instructions Recorded Confirmed Type Atorvastatin Calcium [Lipitor] 20 mg PO HS 09/19/16 03/27/23 History Metoprolol Succinate [Toprol XL] 200 mg PO DAILY 09/19/16 03/27/23 History Prazosin [Minipress] 1 mg PO BID 04/29/17 03/27/23 History Dulaglutide [Trulicity] 1.5 mg SQ WE 03/22/23 03/28/23 History Insulin NPL/Insulin Lispro 70 units SQ BID 03/22/23 03/27/23 History [humaLOG MIX 75-25 VIAL] Olmesartan/Hydrochlorothiazide 1 tab PO DAILY 03/22/23 03/27/23 History [Olmesartan-Hctz 20-12.5 mg Tab] sitaGLIPtin [Januvia] 50 mg PO DAILY 03/22/23 03/27/23 History Acetaminophen Tab [Tylenol Tab] 1,000 mg PO Q6HR PRN #30 tablet 03/25/23 03/27/23 Rx Simethicone [Gas-X] 125 mg PO AC-TID PRN #20 capsule 03/25/23 03/27/23 Rx Allergies Allergy/AdvReac Type Severity Reaction Status Date / Time Penicillins Allergy Swelling Verified 03/27/23 13:16 of throat. hives Surgical - Exam Vital Signs Temp Pulse Resp Pulse Ox 98 F 99 18 95 03/27/23 08:31 03/27/23 08:31 03/27/23 08:31 03/27/23 08:31 Results - Labs 03/28/23 06:26 03/28/23 06:26 Abnormal Lab Results - Last 24 Hours (Table) 03/27/23 03/27/23 03/27/23 Range/Units 09:06 09:06 09:06 WBC 15.3 H (3.8-10.6) k/uL RDW (11.5-14.5) % Immature Gran # (0.00-0.04) X 10*3/uL Neutrophils # 13.2 H (1.3-7.7) k/uL Lymphocytes # 0.8 L (1.0-4.8) k/uL Sodium 130 L (137-145) mmol/L Carbon Dioxide 17 L (22-30) mmol/L BUN 37 H (7-17) mg/dL Glucose 318 H (74-99) mg/dL POC Glucose (mg/dL) (70-110) mg/dL Calcium 7.8 L (8.4-10.2) mg/dL Total Protein 5.2 L (6.3-8.2) g/dL Albumin 3.0 L (3.5-5.0) g/dL Amylase 518 H* (30-110) U/L Urine Protein Trace H (Negative) 03/27/23 03/27/23 03/28/23 Range/Units 16:19 21:02 06:07 WBC (3.8-10.6) k/uL RDW (11.5-14.5) % Immature Gran # (0.00-0.04) X 10*3/uL Neutrophils # (1.3-7.7) k/uL Lymphocytes # (1.0-4.8) k/uL Sodium (137-145) mmol/L Carbon Dioxide (22-30) mmol/L BUN (7-17) mg/dL Glucose (74-99) mg/dL POC Glucose (mg/dL) 187 H 189 H 168 H (70-110) mg/dL Calcium (8.4-10.2) mg/dL Total Protein (6.3-8.2) g/dL Albumin (3.5-5.0) g/dL Amylase (30-110) U/L Urine Protein (Negative) 03/28/23 Range/Units 06:26 WBC (3.8-10.6) k/uL RDW 15.1 H (11.5-14.5) % Immature Gran # 0.09 H (0.00-0.04) X 10*3/uL Neutrophils # (1.3-7.7) k/uL Lymphocytes # (1.0-4.8) k/uL Sodium (137-145) mmol/L Carbon Dioxide (22-30) mmol/L BUN (7-17) mg/dL Glucose (74-99) mg/dL POC Glucose (mg/dL) (70-110) mg/dL Calcium (8.4-10.2) mg/dL Total Protein (6.3-8.2) g/dL Albumin (3.5-5.0) g/dL Amylase (30-110) U/L Urine Protein (Negative) Diabetes panel 03/27/23 Range/Units 09:06 Sodium 130 L (137-145) mmol/L Potassium 4.2 (3.5-5.1) mmol/L Chloride 103 (98-107) mmol/L Carbon Dioxide 17 L (22-30) mmol/L BUN 37 H (7-17) mg/dL Creatinine 1.00 (0.52-1.04) mg/dL Glucose 318 H (74-99) mg/dL Calcium 7.8 L (8.4-10.2) mg/dL AST 20 (14-36) U/L ALT 31 (4-34) U/L Alkaline Phosphatase 67 (38-126) U/L Total Protein 5.2 L (6.3-8.2) g/dL Albumin 3.0 L (3.5-5.0) g/dL Calcium panel 03/27/23 Range/Units 09:06 Calcium 7.8 L (8.4-10.2) mg/dL Albumin 3.0 L (3.5-5.0) g/dL Pituitary panel 03/27/23 Range/Units 09:06 Sodium 130 L (137-145) mmol/L Potassium 4.2 (3.5-5.1) mmol/L Chloride 103 (98-107) mmol/L Carbon Dioxide 17 L (22-30) mmol/L BUN 37 H (7-17) mg/dL Creatinine 1.00 (0.52-1.04) mg/dL Glucose 318 H (74-99) mg/dL Calcium 7.8 L (8.4-10.2) mg/dL Adrenal panel 03/27/23 Range/Units 09:06 Sodium 130 L (137-145) mmol/L Potassium 4.2 (3.5-5.1) mmol/L Chloride 103 (98-107) mmol/L Carbon Dioxide 17 L (22-30) mmol/L BUN 37 H (7-17) mg/dL Creatinine 1.00 (0.52-1.04) mg/dL Glucose 318 H (74-99) mg/dL Calcium 7.8 L (8.4-10.2) mg/dL Total Bilirubin 0.7 (0.2-1.3) mg/dL AST 20 (14-36) U/L ALT 31 (4-34) U/L Alkaline Phosphatase 67 (38-126) U/L Total Protein 5.2 L (6.3-8.2) g/dL Albumin 3.0 L (3.5-5.0) g/dL
[2023-03-28 17:37] LABS: Glucose,Whole Blood 181 mg/dL (70-110)
== END 2023-03-28 18:49 | disposition home or self-care (01) ==
LOC: EC 08:28 → 6NMEDSUR 11:24
PROVIDERS: ADMIT Surgery Plastic and Reconstructive Surgery; ATTEND Surgery Plastic and Reconstructive Surgery
DX: K29.80 Duodenitis without bleeding (principal); K81.1 Chronic cholecystitis; T50.2X5A Adverse effect of carbonic-anhydrase inhibitors, benzothiadiazides and other diuretics, initial encounter; E87.1 Hypo-osmolality and hyponatremia; E11.9 Type 2 diabetes mellitus without complications; I10 Essential (primary) hypertension; E78.5 Hyperlipidemia, unspecified; Z85.3 Personal history of malignant neoplasm of breast; Z85.44 Personal history of malignant neoplasm of other female genital organs; Z85.820 Personal history of malignant melanoma of skin; Z87.11 Personal history of peptic ulcer disease; Z90.49 Acquired absence of other specified parts of digestive tract; Z79.4 Long term (current) use of insulin; Z79.84 Long term (current) use of oral hypoglycemic drugs; Z79.85 Long-term (current) use of injectable non-insulin antidiabetic drugs; Z79.899 Other long term (current) drug therapy; Z88.0 Allergy status to penicillin
CPT/HCPCS: 96376 ×3; 96361; 96374; 96375; 99285; 36415; 80053 ×2; 82150; 83690; 85025 ×2; 85610; 85730; 81003; 76705; 74177; G0378 ×2; J2405; J1170 ×4; C9113 ×2; Q9967

== ENCOUNTER → 2023-04-25 | Outpatient (CLI) | payer MEDICARE, BC ==
--- NOTE | 2023-04-25 16:27 | BD ---
EXAMINATION TYPE: Axial Bone Density DATE OF EXAM: 04/25/2023 CLINICAL HISTORY: 72 years old Female. ICD-10 CODE: Z78.0 ASYMPTOMATIC MENOPAUSAL STATE Height: 62.5 in Weight: 170 lbs FRAX RISK QUESTIONS: Secondary Osteoporosis: 3. Menopause before 45: total hysterectomy age 31 RISK FACTORS HISTORY OF: Surgery to Hip(right/left): yes When: rt hip 2004 and lt hip 2011 and 2016 Active: yes Postmenopausal woman: total hysterectomy age 31 Take estrogen and/or progesterone medications: not now How lon years Adrenal Insufficiency: yes MEDICATIONS: Additional Medications: blood pressure meds, diabetes meds Additional History: breast cancer with chemo and radiation EXAM MEASUREMENTS: Bone mineral densitometry was performed using the [employer] System. Bone mineral density as measured about the Lumbar spine is: ----- L1-L4(G/cm2): 1.390 T Score Values are as follows: ----- L1: 0.0 ----- L2: 2.0 ----- L3: 3.2 ----- L4: 1.6 ----- L1-L4: 1.7 Z Score Values are as follows: ----- L1: 1.4 ----- L2: 3.4 ----- L3: 4.5 ----- L4: 2.9 ----- L1-L4: 3.1 Bone mineral density has: Decreased -0.8% since study of: 08/22/2018 Bone mineral density about the L Wrist (g/cm2): 0.635 T Score values are as follows: -----Dist. R+U: -0.6 -----Prox. R+U: -0.5 -----Radius total: -0.6 Z Score values are as follows: -----Dist. R+U: 1.6 -----Prox. R+U: 1.8 -----Radius total: 1.6 Bone mineral density has: Decreased -3.7% since study of: 08/22/2018 IMPRESSION: Normal (Values between +1 and -1 indicate normal bone mass). Consider repeating this study in 5 year s or sooner if there is some new clinical indication. NOTE: T-SCORE=SD OF THE YOUNG ADULT MEAN.
== END | disposition home or self-care (01) ==
LOC: RADBDWWP 12:12
PROVIDERS: ATTEND Family Medicine
DX: Z78.0 Asymptomatic menopausal state (principal)
CPT/HCPCS: 77080

== ENCOUNTER 2023-05-11 09:55 | Inpatient (IN) | payer MEDICARE, BC ==
--- NOTE | 2023-05-11 10:28 | ED ---
Nausea/Vomiting/Diarrhea HPI - General Source: patient, RN notes reviewed Mode of arrival: ambulatory Limitations: no limitations <Elizabeth Ann - Last Filed: 05/11/23 10:27> - General Source: patient, RN notes reviewed Mode of arrival: ambulatory Limitations: no limitations <Ja Modi - Last Filed: 05/11/23 15:54> - General Chief complaint: Nausea/Vomiting/Diarrhea Stated complaint: abd pain Time Seen by Provider: 05/11/23 10:27 - History of Present Illness Initial comments: Patient is a 72-year-old female presented to ER with chief complaint of nausea vomiting. Patient underwent cholecystectomy on March 25, 2023. Patient states she started having nausea, vomiting and diarrhea about 4 days ago. (Elizabeth Ann) 72-year-old female presents emergency department complaint abdominal pain, nausea vomiting. Patient states she is approximately 6 weeks status po stcholecystectomy by Dr. Lovelace. Patient states that shortly after she developed pancreatitis. She states this pain feels different she does complain abdominal bloating, nausea vomiting states that she feels acutely dehydrated. Patient denies any hematochezia, melena, hematemesis or coffee-ground emesis denies chest pain (Ja Modi) - Related Data Home Medications Medication Instructions Recorded Confirmed Metoprolol Succinate [Toprol XL] 200 mg PO DAILY 09/19/16 05/11/23 Prazosin [Minipress] 1 mg PO BID 04/29/17 05/11/23 Dulaglutide [Trulicity] 1.5 mg SQ PARKER 03/22/23 05/11/23 Insulin NPL/Insulin Lispro 70 units SQ BID 03/22/23 05/11/23 [humaLOG MIX 75-25 VIAL] Olmesartan/Hydrochlorothiazide 1 tab PO DAILY 03/22/23 05/11/23 [Olmesartan-Hctz 20-12.5 mg Tab] sitaGLIPtin [Januvia] 50 mg PO DAILY 03/22/23 05/11/23 Atorvastatin [Lipitor] 20 mg PO HS 05/11/23 05/11/23 Previous Rx's Medication Instructions Recorded Acetaminophen Tab [Tylenol] 1,000 mg PO Q6HR PRN #30 tablet 03/25/23 Simethicone [Gas-X] 125 mg PO AC-TID PRN #20 capsule 03/25/23 Pantoprazole [Protonix] 40 mg PO DAILY #14 tab 03/28/23 Allergies Allergy/AdvReac Type Severity Reaction Status Date / Time Penicillins Allergy Swelling Verified 05/11/23 14:50 of throat. hives Review of Systems ROS Other: All systems not noted in ROS Statement are negative. <Elizabeth Ann - Last Filed: 05/11/23 10:27> ROS Other: All systems not noted in ROS Statement are negative. <Ja Modi - Last Filed: 05/11/23 15:54> ROS Statement: Those systems with pertinent positive or pertinent negative responses have been documented in the HPI. 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 History of Any Multi-Drug Resistant Organisms: None Reported Past Surgical History: Breast Surgery, Cholecystectomy, Hysterectomy, Joint Replacement, Tonsillectomy Additional Past Surgical History / Comment(s): melanoma removed from chest, selene strabismus surgery, right breast lumpectomy (benign), surgery to correct acid reflux, selene hip replacements(left x 2), Past Anesthesia/Blood Transfusion Reactions: No Reported Reaction Past Psychological History: No Psychological Hx Reported Smoking Status: Never smoker Past Alcohol Use History: Rare Past Drug Use History: None Reported - Past Family History Mother Family Medical History: Cancer Additional Family Medical History / Comment(s): non hodgkins lymphoma Father Family Medical History: Cancer Additional Family Medical History / Comment(s): bone, prostate Sister(s) Family Medical History: Cancer Additional Family Medical History / Comment(s): breast <Elizabeth Ann - Last Filed: 05/11/23 10:27> General Exam Limitations: no limitations <Elizabeth Ann - Last Filed: 05/11/23 10:27> General appearance: alert, in no apparent distress Head exam: Present: atraumatic, normocephalic, normal inspection Eye exam: Present: normal appearance Respiratory exam: Present: normal lung sounds bilaterally. Absent: respiratory distress, wheezes, rales, rhonchi, stridor Cardiovascular Exam: Present: regular rate, normal rhythm, normal heart sounds. Absent: systolic murmur, diastolic murmur, rubs, gallop, clicks GI/Abdominal exam: Present: soft, tenderness, normal bowel sounds. Absent: distended, guarding, rebound, rigid <Ja Modi - Last Filed: 05/11/23 15:54> - General Exam Comments Initial Comments: Visual Physical Exam Vital signs reviewed General: Well-appearing, nontoxic, no acute distress. Head: Normocephalic, atraumatic Eyes: PERRLA, EOMI ENT: Airway patent Chest: Nonlabored breathing Skin: No visual rash, normal skin tone Neuro: Alert and oriented 3 Musculoskeletal: No gross abnormalities (Elizabeth Ann) Course Vital Signs 05/11/23 05/11/23 10:13 13:16 Temperature 98.0 F Pulse Rate 85 94 Respiratory 16 Rate Blood Pressure 112/77 134/79 O2 Sat by Pulse 98 97 Oximetry Medical Decision Making <Elizabeth Ann - Last Filed: 05/11/23 10:27> - Lab Data Result diagrams: 05/11/23 10:34 05/11/23 10:34 <Ja Modi - Last Filed: 05/11/23 15:54> - Medical Decision Making I performed the quick note portion of the exam. Electronically signed by Elizabeth Ann PA-C (Elizabeth Ann) Was pt. sent in by a medical professional or institution (ROBERTA Rodriguez, RAISIN SEPARATOR OPERATOR, urgent care, hospital, or penitentiary...) When possible be specific @ -No Did you speak to anyone other than the patient for history (EMS, parent, family, police, friend...)? What history was obtained from this source @ -No Did you review nursing and triage notes (agree or disagree)? Why? @ -I reviewed and agree with nursing and triage notes Were old charts reviewed (outside hosp., previous admission, EMS record, old EKG, old radiological studies, urgent care reports/EKG's, penitentiary records)? Report findings @ -Reviewed prior CT, laboratory studies Differential Diagnosis (chest pain, altered mental status, abdominal pain women, abdominal pain men, vaginal bleeding, weakness, fever, dyspnea, syncope, headache, dizziness, GI bleed, back pain, seizure, CVA, palpatations, mental health, musculoskeletal)? @ -Differential Abdominal Pain Women: Appendicitis, Cholecystitis, diverticulosis, ischemic bowel, pancreatitis, hepatitis, UTI, gastroenteritis, AAA, incarcerated hernia, bowel obstruction, constipation, inflammatory bowel, hepatitis, peptic ulcer disease, splenic infarction, perforated viscus, vulvitis, ovarian torsion, PID, kidney stone, placenta abruption, this is not meant to be an all-inclusive list EKG interpreted by me (3pts min.). @ -As above X-rays interpreted by me (1pt min.). @ -None done CT interpreted by me (1pt min.). @ -None done U/S interpreted by me (1pt. min.). @ -None done What testing was considered but not performed or refused? (CT, X-rays, U/S, labs)? Why? @ -None What meds were considered but not given or refused? Why? @ -None Did you discuss the management of the patient with other professionals (professionals i.e. , PA, RAISIN SEPARATOR OPERATOR, lab, RT, psych nurse, social worker clinical, water resource specialist, teacher, evp chief exploration officer, director of casework)? Give summary @ -[facility] for admission with consult to surgeon request patient to have as needed NG tube order] Was smoking cessation discussed for >3mins.? @ -No Was critical care preformed (if so, how long)? @ -No Were there social determinants of health that impacted care today? How? (Homelessness, low income, unemployed, alcoholism, drug addiction, transportation, low edu. Level, literacy, decrease access to med. care, snf, rehab)? @ -No Was there de-escalation of care discussed even if they declined (Discuss DNR or withdrawal of care, Hospice)? DNR status @ -No What co-morbidities impacted this encounter? (DM, HTN, Smoking, COPD, CAD, Cancer, CVA, ARF, Chemo, Hep., AIDS, mental health diagnosis, sleep apnea, morbid obesity)? @ -None Was patient admitted / discharged? Hospital course, mention meds given and route, prescriptions, significant lab abnormalities, going to OR and other pertinent info. @ -Patient found to be acutely dehydrated, metabolic acidosis with acute kidney injury. Patient was given IV fluid bolus, maintenance fluids, antiemetics patient will be admitted for repeat laboratory studies and further evaluation Undiagnosed new problem with uncertain prognosis? @ -No Drug Therapy requiring intensive monitoring for toxicity (Heparin, Nitro, Insulin, Cardizem)? @ -No Were any procedures done? @ -No Diagnosis/symptom? @ -[Acute kidney injury, dehydration, ileus Acute, or Chronic, or Acute on Chronic? @ -Acute Uncomplicated (without systemic symptoms) or Complicated (systemic symptoms)? @ -complicated Side effects of treatment? @ -[No Exacerbation, Progression, or Severe Exacerbation? @ -No Poses a threat to life or bodily function? How? (Chest pain, [place], [place], pneumonia, PE, COPD, DKA, ARF, appy, cholecystitis, CVA, Diverticulitis, Homicidal, Suicidal, threat to staff... and all critical care pts) @ -No (Ja Modi) - Lab Data Lab Results 05/11/23 05/11/23 05/11/23 Range/Units 10:34 10:34 10:34 WBC 14.5 H (3.8-10.6) k/uL RBC 5.37 (3.80-5.40) m/uL Hgb 15.1 (11.4-16.0) gm/dL Hct 45.9 (34.0-46.0) % MCV 85.4 (80.0-100.0) fL MCH 28.2 (25.0-35.0) pg MCHC 33.0 (31.0-37.0) g/dL RDW 14.8 (11.5-15.5) % Plt Count 376 (150-450) k/uL MPV 8.3 Neutrophils % 88 % Lymphocytes % 8 % Monocytes % 3 % Eosinophils % 0 % Basophils % 0 % Neutrophils # 12.7 H (1.3-7.7) k/uL Lymphocytes # 1.1 (1.0-4.8) k/uL Monocytes # 0.5 (0-1.0) k/uL Eosinophils # 0.0 (0-0.7) k/uL Basophils # 0.1 (0-0.2) k/uL Sodium 139 (137-145) mmol/L Potassium 4.0 (3.5-5.1) mmol/L Chloride 112 H (98-107) mmol/L Carbon Dioxide 12 L (22-30) mmol/L Anion Gap 15 mmol/L BUN 39 H (7-17) mg/dL Creatinine 1.51 H (0.52-1.04) mg/dL Est GFR (CKD-EPI)AfAm 39 (>60 ml/min/1.73 sqM) Est GFR (CKD-EPI)NonAf 34 (>60 ml/min/1.73 sqM) Glucose 200 H (74-99) mg/dL Calcium 9.9 (8.4-10.2) mg/dL Total Bilirubin 0.7 (0.2-1.3) mg/dL AST 27 (14-36) U/L ALT 57 H (4-34) U/L Alkaline Phosphatase 104 (38-126) U/L Total Protein 6.9 (6.3-8.2) g/dL Albumin 4.4 (3.5-5.0) g/dL Amylase 72 (30-110) U/L Lipase 168 (23-300) U/L Urine Color Urine Appearance (Clear) Urine pH (5.0-8.0) Ur Specific Emerson (1.001-1.035) Urine Protein (Negative) Urine Glucose (UA) (Negative) Urine Ketones (Negative) Urine Blood (Negative) Urine Nitrite (Negative) Urine Bilirubin (Negative) Urine Urobilinogen (<2.0) mg/dL Ur Leukocyte Esterase (Negative) Urine RBC (0-5) /hpf Urine WBC (0-5) /hpf Ur Squamous Epith Cells (0-4) /hpf Urine Bacteria (None) /hpf Hyaline Casts (0-2) /lpf Urine Mucus (None) /hpf Influenza Type A (PCR) Not Detected (Not Detectd) Influenza Type B (PCR) Not Detected (Not Detectd) RSV (PCR) Not Detected (Not Detectd) SARS-CoV-2 (PCR) Not Detected (Not Detectd) 05/11/23 Range/Units 14:32 WBC (3.8-10.6) k/uL RBC (3.80-5.40) m/uL Hgb (11.4-16.0) gm/dL Hct (34.0-46.0) % MCV (80.0-100.0) fL MCH (25.0-35.0) pg MCHC (31.0-37.0) g/dL RDW (11.5-15.5) % Plt Count (150-450) k/uL MPV Neutrophils % % Lymphocytes % % Monocytes % % Eosinophils % % Basophils % % Neutrophils # (1.3-7.7) k/uL Lymphocytes # (1.0-4.8) k/uL Monocytes # (0-1.0) k/uL Eosinophils # (0-0.7) k/uL Basophils # (0-0.2) k/uL Sodium (137-145) mmol/L Potassium (3.5-5.1) mmol/L Chloride (98-107) mmol/L Carbon Dioxide (22-30) mmol/L Anion Gap mmol/L BUN (7-17) mg/dL Creatinine (0.52-1.04) mg/dL Est GFR (CKD-EPI)AfAm (>60 ml/min/1.73 sqM) Est GFR (CKD-EPI)NonAf (>60 ml/min/1.73 sqM) Glucose (74-99) mg/dL Calcium (8.4-10.2) mg/dL Total Bilirubin (0.2-1.3) mg/dL AST (14-36) U/L ALT (4-34) U/L Alkaline Phosphatase (38-126) U/L Total Protein (6.3-8.2) g/dL Albumin (3.5-5.0) g/dL Amylase (30-110) U/L Lipase (23-300) U/L Urine Color Yellow Urine Appearance Clear (Clear) Urine pH 5.5 (5.0-8.0) Ur Specific Emerson 1.027 (1.001-1.035) Urine Protein 1+ H (Negative) Urine Glucose (UA) Negative (Negative) Urine Ketones Negative (Negative) Urine Blood Negative (Negative) Urine Nitrite Negative (Negative) Urine Bilirubin Negative (Negative) Urine Urobilinogen <2.0 (<2.0) mg/dL Ur Leukocyte Esterase Negative (Negative) Urine RBC <1 (0-5) /hpf Urine WBC 2 (0-5) /hpf Ur Squamous Epith Cells 1 (0-4) /hpf Urine Bacteria Rare H (None) /hpf Hyaline Casts 30 H (0-2) /lpf Urine Mucus Rare H (None) /hpf Influenza Type A (PCR) (Not Detectd) Influenza Type B (PCR) (Not Detectd) RSV (PCR) (Not Detectd) SARS-CoV-2 (PCR) (Not Detectd) Disposition <Elizabeth Ann - Last Filed: 05/11/23 10:27> Time of Disposition: 15:33 <Ja Modi - Last Filed: 05/11/23 15:54> Clinical Impression: Ileus, Dehydration, MARJORIE (acute kidney injury) Disposition: ADMITTED IP TO THIS HOSP Condition: Fair Referrals: Anupama Johnson MD [Primary Care Provider] - 1-2 days
[2023-05-11 11:08] LABS: Basophils # (A) 0.1 k/uL (0-0.2); Basophils % (A) 0 %; Eosinophils % (A) 0 %; HCT 45.9 % (34.0-46.0); HGB 15.1 gm/dL (11.4-16.0); Lymphocytes # (A) 1.1 k/uL (1.0-4.8); Lymphocytes % (A) 8 %; MCH 28.2 pg (25.0-35.0); MCV 85.4 fL (80.0-100.0); Mean Platelet Volume 8.3; Monocytes # (A) 0.5 k/uL (0-1.0); Monocytes % (A) 3 %; Neutrophils # (A) 12.7 k/uL (1.3-7.7); Neutrophils % (A) 88 %; Platelet Count 376 k/uL (150-450); RBC 5.37 m/uL (3.80-5.40); RDW 14.8 % (11.5-15.5); WBC 14.5 k/uL (3.8-10.6)
[2023-05-11 11:31] LABS: ALT 57 U/L (4-34); AST 27 U/L (14-36); African American GFR (CKD) 39 (>60 ml/min/1.73 sqM); Albumin 4.4 g/dL (3.5-5.0); Alkaline Phosphatase 104 U/L (38-126); Amylase 72 U/L (30-110); Anion Gap 15 mmol/L; Blood Urea Nitrogen 39 mg/dL (7-17); Calcium 9.9 mg/dL (8.4-10.2); Carbon Dioxide 12 mmol/L (22-30); Chloride 112 mmol/L (98-107); Glucose 200 mg/dL (74-99); Lipase 168 U/L (23-300); Non-African American GFR(CKD) 34 (>60 ml/min/1.73 sqM); Sodium 139 mmol/L (137-145); Total Bilirubin 0.7 mg/dL (0.2-1.3); Total Protein 6.9 g/dL (6.3-8.2)
[2023-05-11] MEDS ORDERED: ONDANSETRON 4 MG/2 ML VIAL IVP STA ×2 (13:22→14:29)
[2023-05-11] MEDS ORDERED: SODIUM CHLORIDE 0.9% 1,000 ML IV ONE (14:29)
[2023-05-11] MEDS ORDERED: HYDROmorphone 0.5 MG/0.5 ML SYRINGE IVP STA (14:30)
[2023-05-11 14:56] LABS: Appearance,Urine Clear (Clear); Bacteria,Urine Rare /hpf; Bilirubin,Urine Negative (Negative); Blood,Urine Negative (Negative); Color,Urine Yellow; Glucose,Urine (UA) Negative (Negative); Hyaline Casts,Urine 30 /lpf (0-2); Ketones,Urine Negative (Negative); Leukocyte Esterase,Urine Negative (Negative); Mucus,Urine Rare /hpf; Nitrite,Urine Negative (Negative); PH, Urine 5.5 (5.0-8.0); Protein,Urine 1+ (Negative); RBC,Urine <1 /hpf (0-5); Specific Gravity,Urine 1.027 (1.001-1.035); Squamous Epithelial Cell,Urine 1 /hpf (0-4); Urobilinogen,Urine <2.0 mg/dL (<2.0); WBC,Urine 2 /hpf (0-5)
--- NOTE | 2023-05-11 15:28 | CT ---
EXAMINATION TYPE: CT abdomen pelvis wo con DATE OF EXAM: 05/11/2023 COMPARISON: 03/27/2023 INDICATION: Upper abdominal pain and diarrhea. History of cholecystectomy in 04/02. DLP: 567.1 mGycm, Automated exposure control for dose reduction was used. CONTRAST: 0 mL of Isovue 300. Study performed without Oral Contrast TECHNIQUE: Axial images were obtained from above the diaphragm to the pubic rami in the axial plane a t 5 mm thick sections. Reconstructed images are reviewed on the computer in the coronal plane. FINDINGS: Limited CT sections are obtained the lung bases. The lung bases are clear. CT ABDOMEN: Stomach is distended with fluid. Liver: Normal Spleen: Normal Pancreas: Normal Adrenal glands: The adrenal glands are normal. Gallbladder: Not identified which correlates with the patient's surgery history Kidneys: No masses are evident. No hydronephrosis is present. No cysts are present. No renal stone s are evident. Aorta: Vascular calcification is within the aorta. Inferior vena cava: Normal. CT PELVIS: There are multiple fluid-filled small bowel loops which are slightly prominent. No sonographic transi tion is evident. No obstruction is identified. Correlate for ileus. Air and some fluid within the col on. No dilated colon is evident. Appendix: Normal as visualized. Urinary bladder: Limited due to beam morning artifact from bilateral hip prostheses. Genitourinary structures: Uterus and ovaries are not identified. Osseous structures: No suspicious lytic or sclerotic lesions. IMPRESSION: 1. Possible ileus small bowel. Consider gastroenteritis.
[2023-05-11] MEDS ORDERED: NALOXONE 0.4 MG/ML 1 ML VIAL IV PRN (15:50)
[2023-05-11] MEDS ORDERED: ONDANSETRON 4 MG/2 ML VIAL IVP PRN (15:50)
[2023-05-11] MEDS: SODIUM CHLORIDE 0.9% 1,000 ML IV SCH (18:27)
[2023-05-11] MEDS: HYDROmorphone 0.5 MG/0.5 ML SYRINGE IVP PRN ×2 (19:10→22:55)
[2023-05-11] MEDS ORDERED: SIMETHICONE 80 MG CHEWABLE PO PRN (19:40)
[2023-05-11 19:43] LABS: Glucose,Whole Blood 158 mg/dL (70-110)
[2023-05-11] MEDS: PRAZOSIN 1 MG CAP PO SCH (21:17)
[2023-05-11] MEDS: ATORVASTATIN 20 MG TAB PO SCH (21:17)
[2023-05-11] MEDS: INSULN ASP PRT/INSULIN ASPART 100 UNIT/ML 10 ML VIAL SQ SCH (21:20)
[2023-05-12] MEDS ORDERED: DEXTROSE 50% SYRINGE 50 ML IVP PRN ×2 (00:37)
[2023-05-12] MEDS: ONDANSETRON 4 MG/2 ML VIAL IVP PRN ×4 (02:59→21:22)
[2023-05-12] MEDS: SODIUM CHLORIDE 0.9% 1,000 ML IV SCH ×3 (03:17→15:47)
[2023-05-12] MEDS: HYDROmorphone 0.5 MG/0.5 ML SYRINGE IVP PRN ×5 (03:17→23:27)
[2023-05-12 06:10] LABS: Glucose,Whole Blood 200 mg/dL (70-110)
[2023-05-12] MEDS: INSULIN ASPART (NovoLOG) 100 UNIT/ML VIAL SQ SCH ×4 (06:32→21:08)
[2023-05-12] MEDS: METOPROLOL SUCCINATE (ER) 100 MG TAB.ER.24H PO SCH ×2 (08:00→09:42)
[2023-05-12] MEDS: INSULN ASP PRT/INSULIN ASPART 100 UNIT/ML 10 ML VIAL SQ SCH ×2 (09:38→21:22)
[2023-05-12] MEDS: PRAZOSIN 1 MG CAP PO SCH ×2 (09:42→21:23)
[2023-05-12] MEDS: PANTOPRAZOLE 40 MG TABLET PO SCH (09:43)
[2023-05-12] MEDS: LINAGLIPTIN 5 MG TABLET PO SCH (09:43)
[2023-05-12] MEDS ORDERED: OLMESARTAN PO SCH (09:45)
[2023-05-12] MEDS ORDERED: HYDROCHLOROTHIAZIDE PO SCH (09:45)
[2023-05-12] MEDS ORDERED: [UNRECOGNIZED DRUG - OTHER] PO SCH (09:45)
[2023-05-12] MEDS ORDERED: hydrALAZINE HCL 20 MG/ML 1 ML VIAL IVP PRN (09:47)
--- NOTE | 2023-05-12 10:45 | XR ---
EXAMINATION TYPE: XR KUB portable DATE OF EXAM: 05/12/2023 10:33 AM CLINICAL INDICATION:Female, 72 years old with history of Follow-up bowel obstruction; [facility] COMPARISON: CT 05/11/2023. TECHNIQUE: One radiographic view of the abdomen was obtained. FINDINGS: Gaseous dilation of small bowel loops within the upper abdomen similar prior CT 05/11/2023. The bowel gas pattern is nonspecific without dilated loops of small or large bowel. There is no evide nce for organomegaly or pneumoperitoneum. The osseous structures are intact. No abnormal calcificat ions are present. Fecal material and gas are demonstrated throughout the colon and rectum. Bilateral hip arthroplasties are present. IMPRESSION: Persistent gaseous dilation of bowel in the upper abdomen with relative sparing of the pelvis. Correl ate for ileus.
[2023-05-12 10:48] LABS: HCT 39.2 % (37.2-46.3); HGB 12.7 g/dL (12.0-15.0); MCH 28.1 pg (27.0-32.0); MCHC 32.4 g/dL (32.0-37.0); MCV 86.7 FL (80.0-97.0); Mean Platelet Volume 10.5 FL (9.5-12.2); NRBC Per 100 WBC 0 X 10*3/uL (0.00-0.01); Platelet Count 308 X 10*3/uL (140-440); RBC 4.52 X 10*6/uL (4.10-5.20); RDW 15.1 % (11.5-14.5); WBC 11.67 X 10*3/uL (4.50-10.00)
[2023-05-12 11:20] LABS: BUN/Creat Ratio 32.08 Ratio (12.00-20.00); Blood Urea Nitrogen 38.5 mg/dL (9.0-27.0); Calcium 8.6 mg/dL (8.7-10.3); Carbon Dioxide 18.8 mmol/L (21.6-31.8); Chloride 111 mmol/L (96-109); Glucose 188 mg/dL (70-110); Potassium 4.1 mmol/L (3.5-5.5); Sodium 140 mmol/L (135-145)
--- NOTE | 2023-05-12 11:47 | P.GSCN ---
History of Present Illness Consult date: 05/12/23 History of present illness: CHIEF COMPLAINT: Abdominal pain HISTORY OF PRESENT ILLNESS: This is a 72-year-old female who presented with abdominal pain nausea, dry heaves and diarrhea x 5 days. Patient reports that she has had multiple liquidy stools. No blood in the stools. She reports a decreased appetite. She had a recent Robotic cholecystectomy on 03/25/[address] Lovelace. Patient had CT scan abdomen and pelvis completed reporting possible small bowel ileus. Consider gastroenteritis. Patient denies any sick contacts. She does report having hot sweats. She feels bloated. Last colonoscopy was in April 2022 with evidence of polyps per patient. Other abdominal surgical history includes hiatal hernia repair, hysterectomy and laparoscopies for endometriosis. PAST MEDICAL HISTORY: See below PAST SURGICAL HISTORY: See below MEDICATIONS: See below ALLERGIES: See below SOCIAL HISTORY: No illicit drug use. REVIEW OF SYSTEMS: CONSTITUTIONAL: Denies fever or chills. HEENT: Denies blurred vision, vision changes, or eye pain. Denies hemoptysis CARDIOVASCULAR: Denies chest pain or pressure. RESPIRATORY: No shortness of breath. GASTROINTESTINAL: See HPI for pertinent findings HEMATOLOGIC: Denies bleeding disorders. GENITOURINARY: Denies any blood in urine or increased urinary frequency. SKIN: Denies pruitis. Denies rash. PHYSICAL EXAM: VITAL SIGNS: Reviewed GENERAL: Well-developed in no acute distress. HEENT: No sclera icterus. Extraocular movements grossly intact. Moist buccal mucosa. Head is atraumatic, normocephalic. No nasal drainage. ABDOMEN: Soft. Mildly distended. Diffuse tenderness but more tender in the epigastric and right lower quadrant. NEUROLOGIC: Alert and oriented. Cranial nerves II through XII grossly intact. LABORATORY DATA: WBC 14.5 down to 11.67 Hgb 12.7 platelets 308 Sodium is 140 potassium is 4.1 creatinine 1.5 down to 1.2 IMAGING: CT scan abdomen pelvis possible ileus small bowel. Consider gastroenteritis. KUB x-ray persistent gaseous dilation of the bowel in the upper abdomen with relative sparing of the pelvis. Correlate for ileus ASSESSMENT: 1. Ileus 2. Possible gastroenteritis 3. Acute kidney injury 4. Recent cholecystectomy PLAN: -Continue clear liquid diet. Educated patient to go slow with liquids. -Continue IV fluids -Continue pain management and antiemetics -Encourage patient to ambulate -Continue supportive care -Further recommendations forthcoming per surgeon Physician Superintendent Nonselling note has been reviewed by physician. Signing provider agrees with the documented findings, assessment, and plan of care. 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 History of Any Multi-Drug Resistant Organisms: None Reported Past Surgical History: Breast Surgery, Cholecystectomy, Hysterectomy, Joint Replacement, Tonsillectomy Additional Past Surgical History / Comment(s): melanoma removed from chest, selene strabismus surgery, right breast lumpectomy (benign), surgery to correct acid reflux, selene hip replacements(left x 2), Past Anesthesia/Blood Transfusion Reactions: No Reported Reaction Additional Past Anesthesia/Blood Transfusion Reaction / Comm: autologous blood transfusion Past Psychological History: No Psychological Hx Reported Smoking Status: Never smoker Past Alcohol Use History: Rare Past Drug Use History: None Reported - Past Family History Mother Family Medical History: Cancer Additional Family Medical History / Comment(s): non hodgkins lymphoma Father Family Medical History: Cancer Additional Family Medical History / Comment(s): bone, prostate Sister(s) Family Medical History: Cancer Additional Family Medical History / Comment(s): breast Medications and Allergies Home Medications Medication Instructions Recorded Confirmed Type Metoprolol Succinate [Toprol XL] 200 mg PO DAILY 09/19/16 05/11/23 History Prazosin [Minipress] 1 mg PO BID 04/29/17 05/11/23 History Dulaglutide [Trulicity] 1.5 mg SQ PARKER 03/22/23 05/11/23 History Insulin NPL/Insulin Lispro 70 units SQ BID 03/22/23 05/11/23 History [humaLOG MIX 75-25 VIAL] Olmesartan/Hydrochlorothiazide 1 tab PO DAILY 03/22/23 05/11/23 History [Olmesartan-Hctz 20-12.5 mg Tab] sitaGLIPtin [Januvia] 50 mg PO DAILY 03/22/23 05/11/23 History Acetaminophen Tab [Tylenol] 1,000 mg PO Q6HR PRN #30 tablet 03/25/23 05/11/23 Rx Simethicone [Gas-X] 125 mg PO AC-TID PRN #20 capsule 03/25/23 05/11/23 Rx Pantoprazole [Protonix] 40 mg PO DAILY #14 tab 03/28/23 05/11/23 Rx Atorvastatin [Lipitor] 20 mg PO HS 05/11/23 05/11/23 History Allergies Allergy/AdvReac Type Severity Reaction Status Date / Time Penicillins Allergy Swelling Verified 05/11/23 14:50 of throat. hives Surgical - Exam Vital Signs Temp Pulse Resp BP Pulse Ox 98.0 F 85 16 112/77 98 05/11/23 10:13 05/11/23 10:13 05/11/23 10:13 05/11/23 10:13 05/11/23 10:13 Results - Labs 05/12/23 07:44 05/12/23 07:44 Abnormal Lab Results - Last 24 Hours (Table) 05/11/23 05/11/23 05/11/23 Range/Units 10:34 10:34 14:32 WBC 14.5 H (3.8-10.6) k/uL Neutrophils # 12.7 H (1.3-7.7) k/uL Chloride 112 H (98-107) mmol/L Carbon Dioxide 12 L (22-30) mmol/L BUN 39 H (7-17) mg/dL Creatinine 1.51 H (0.52-1.04) mg/dL Glucose 200 H (74-99) mg/dL POC Glucose (mg/dL) (70-110) mg/dL ALT 57 H (4-34) U/L Urine Protein 1+ H (Negative) Urine Bacteria Rare H (None) /hpf Hyaline Casts 30 H (0-2) /lpf Urine Mucus Rare H (None) /hpf 05/11/23 05/12/23 Range/Units 19:41 06:08 WBC (3.8-10.6) k/uL Neutrophils # (1.3-7.7) k/uL Chloride (98-107) mmol/L Carbon Dioxide (22-30) mmol/L BUN (7-17) mg/dL Creatinine (0.52-1.04) mg/dL Glucose (74-99) mg/dL POC Glucose (mg/dL) 158 H 200 H (70-110) mg/dL ALT (4-34) U/L Urine Protein (Negative) Urine Bacteria (None) /hpf Hyaline Casts (0-2) /lpf Urine Mucus (None) /hpf Diabetes panel 05/11/23 Range/Units 10:34 Sodium 139 (137-145) mmol/L Potassium 4.0 (3.5-5.1) mmol/L Chloride 112 H (98-107) mmol/L Carbon Dioxide 12 L (22-30) mmol/L BUN 39 H (7-17) mg/dL Creatinine 1.51 H (0.52-1.04) mg/dL Glucose 200 H (74-99) mg/dL Calcium 9.9 (8.4-10.2) mg/dL AST 27 (14-36) U/L ALT 57 H (4-34) U/L Alkaline Phosphatase 104 (38-126) U/L Total Protein 6.9 (6.3-8.2) g/dL Albumin 4.4 (3.5-5.0) g/dL Calcium panel 05/11/23 Range/Units 10:34 Calcium 9.9 (8.4-10.2) mg/dL Albumin 4.4 (3.5-5.0) g/dL Pituitary panel 05/11/23 Range/Units 10:34 Sodium 139 (137-145) mmol/L Potassium 4.0 (3.5-5.1) mmol/L Chloride 112 H (98-107) mmol/L Carbon Dioxide 12 L (22-30) mmol/L BUN 39 H (7-17) mg/dL Creatinine 1.51 H (0.52-1.04) mg/dL Glucose 200 H (74-99) mg/dL Calcium 9.9 (8.4-10.2) mg/dL Adrenal panel 05/11/23 Range/Units 10:34 Sodium 139 (137-145) mmol/L Potassium 4.0 (3.5-5.1) mmol/L Chloride 112 H (98-107) mmol/L Carbon Dioxide 12 L (22-30) mmol/L BUN 39 H (7-17) mg/dL Creatinine 1.51 H (0.52-1.04) mg/dL Glucose 200 H (74-99) mg/dL Calcium 9.9 (8.4-10.2) mg/dL Total Bilirubin 0.7 (0.2-1.3) mg/dL AST 27 (14-36) U/L ALT 57 H (4-34) U/L Alkaline Phosphatase 104 (38-126) U/L Total Protein 6.9 (6.3-8.2) g/dL Albumin 4.4 (3.5-5.0) g/dL
[2023-05-12 12:00] LABS: Glucose,Whole Blood 145 mg/dL (70-110)
--- NOTE | 2023-05-12 12:47 | P.HPIM ---
History of Present Illness H&P Date: 05/12/23 Chief Complaint: Nausea vomiting abdominal pain * 72-year-old patient with past medical history significant for diabetes mellitus, hypertension, gastroesophageal reflux disease, history of psoriasis, who underwent cholecystectomy in March 2023 presents to the emergency dep artment with complaints of nausea, vomiting and abdominal pain. Patient had complaint of abdominal bloating, nausea and vomiting. Patient denies associated coffee-ground emesis, melena, chest pain, fever, chills * Workup initiated in ER included hematology which showed WBC 14.5 hemoglobin 15 platelet count of 376. Serum chemistry showed sodium 139 potassium 4 BUN 39 creatinine 1.51 blood glucose 200. Urinalysis was negative for infectious process * Patient tested negative for influenza RSV and COVID * Liver profile essentially negative lipase within normal limits 168 * While in ER patient was resuscitated with IV fluid given Zofran as needed for nausea and pain control IV Dilaudid was given * CT abdomen and pelvis obtained in ER did show possible ileus without obstruction or small bowel, multiple fluid levels were noted and small bowels no sonographic transition was noted no obstruction was identified * Patient was admitted to medical floor with consultation from general surgery REVIEW OF SYSTEMS: Nausea, abdominal bloating, vomiting abdominal distention CONSTITUTIONAL: No fever, no malaise, no fatigue. HEENT: No recent visual problems or hearing problems. Denied any sore throat. CARDIOVASCULAR: No chest pain, orthopnea, PND, no palpitations, no syncope. PULMONARY: No shortness of breath, no cough, no hemoptysis. GASTROINTESTINAL: Nausea, abdominal bloatingabdominal distention, dry heave NEUROLOGICAL: No headaches, no weakness, no numbness. HEMATOLOGICAL: Denies any bleeding or petechiae. GENITOURINARY: Denies any burning micturition, frequency, or urgency. MUSCULOSKELETAL/RHEUMATOLOGICAL: Denies any joint pain, swelling, or any muscle pain. ENDOCRINE: Denies any polyuria or polydipsia. PHYSICAL EXAMINATION: GENERAL: The patient is alert and oriented x3, not in any acute distress. Well developed, well nourished. HEENT: Pupils are round and equally reacting to light. EOMI. CARDIOVASCULAR: S1 and S2 present. No murmurs, rubs, or gallops. PULMONARY: Chest is clear to auscultation, no wheezing or crackles. ABDOMEN: Soft, nontender, distended, hyperactive bowel sounds MUSCULOSKELETAL: No joint swelling or deformity. EXTREMITIES: No cyanosis, clubbing, or pedal edema. NEUROLOGICAL: Gross neurological examination did not reveal any focal deficits. SKIN: No rashes. 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 History of Any Multi-Drug Resistant Organisms: None Reported Past Surgical History: Breast Surgery, Cholecystectomy, Hysterectomy, Joint Replacement, Tonsillectomy Additional Past Surgical History / Comment(s): melanoma removed from chest, selene strabismus surgery, right breast lumpectomy (benign), surgery to correct acid reflux, selene hip replacements(left x 2), Past Anesthesia/Blood Transfusion Reactions: No Reported Reaction Additional Past Anesthesia/Blood Transfusion Reaction / Comment(s): autologous blood transfusion Past Psychological History: No Psychological Hx Reported Smoking Status: Never smoker Past Alcohol Use History: Rare Past Drug Use History: None Reported - Past Family History Mother Family Medical History: Cancer Additional Family Medical History / Comment(s): non hodgkins lymphoma Father Family Medical History: Cancer Additional Family Medical History / Comment(s): bone, prostate Sister(s) Family Medical History: Cancer Additional Family Medical History / Comment(s): breast Medications and Allergies Home Medications Medication Instructions Recorded Confirmed Type Metoprolol Succinate [Toprol XL] 200 mg PO DAILY 09/19/16 05/11/23 History Prazosin [Minipress] 1 mg PO BID 04/29/17 05/11/23 History Dulaglutide [Trulicity] 1.5 mg SQ PARKER 03/22/23 05/11/23 History Insulin NPL/Insulin Lispro 70 units SQ BID 03/22/23 05/11/23 History [humaLOG MIX 75-25 VIAL] Olmesartan/Hydrochlorothiazide 1 tab PO DAILY 03/22/23 05/11/23 History [Olmesartan-Hctz 20-12.5 mg Tab] sitaGLIPtin [Januvia] 50 mg PO DAILY 03/22/23 05/11/23 History Acetaminophen Tab [Tylenol] 1,000 mg PO Q6HR PRN #30 tablet 03/25/23 05/11/23 Rx Simethicone [Gas-X] 125 mg PO AC-TID PRN #20 capsule 03/25/23 05/11/23 Rx Pantoprazole [Protonix] 40 mg PO DAILY #14 tab 03/28/23 05/11/23 Rx Atorvastatin [Lipitor] 20 mg PO HS 05/11/23 05/11/23 History Allergies Allergy/AdvReac Type Severity Reaction Status Date / Time Penicillins Allergy Swelling Verified 05/11/23 14:50 of throat. hives Physical Exam Vitals: Vital Signs Temp Pulse Pulse Resp BP BP Pulse Ox 05/12/23 07:05 98.3 F 91 18 156/62 98 05/12/23 00:56 98.6 F 94 13 161/68 97 05/11/23 18:25 98.5 F 101 H 18 158/83 97 05/11/23 16:17 97.8 F 96 16 165/76 97 05/11/23 13:16 94 134/79 97 05/11/23 10:13 98.0 F 85 16 112/77 98 Intake and Output 05/11/23 05/12/23 05/12/23 22:59 06:59 14:59 Intake Total 1599 Balance 1599 Intake: Intake, IV Titration 1599 Amount Sodium Chloride 0.9% 1, 600 000 ml @ 125 mls/hr IV . Q8H [facility] Rx#:[id number] Sodium Chloride 0.9% 1, 999 000 ml @ 999 mls/hr IV . Q1H1M [facility] Rx#:[id number] Other: Voiding Method Toilet # Voids 4 Weight 74.843 kg Results CBC & Chem 7: 05/12/23 07:44 05/12/23 07:44 Labs: Abnormal Lab Results - Last 24 Hours (Table) 05/11/23 05/11/23 05/11/23 Range/Units 10:34 10:34 14:32 WBC 14.5 H (3.8-10.6) k/uL Neutrophils # 12.7 H (1.3-7.7) k/uL Chloride 112 H (98-107) mmol/L Carbon Dioxide 12 L (22-30) mmol/L BUN 39 H (7-17) mg/dL Creatinine 1.51 H (0.52-1.04) mg/dL Glucose 200 H (74-99) mg/dL POC Glucose (mg/dL) (70-110) mg/dL ALT 57 H (4-34) U/L Urine Protein 1+ H (Negative) Urine Bacteria Rare H (None) /hpf Hyaline Casts 30 H (0-2) /lpf Urine Mucus Rare H (None) /hpf 05/11/23 05/12/23 Range/Units 19:41 06:08 WBC (3.8-10.6) k/uL Neutrophils # (1.3-7.7) k/uL Chloride (98-107) mmol/L Carbon Dioxide (22-30) mmol/L BUN (7-17) mg/dL Creatinine (0.52-1.04) mg/dL Glucose (74-99) mg/dL POC Glucose (mg/dL) 158 H 200 H (70-110) mg/dL ALT (4-34) U/L Urine Protein (Negative) Urine Bacteria (None) /hpf Hyaline Casts (0-2) /lpf Urine Mucus (None) /hpf Thrombosis Risk Factor Assmnt - Choose All That Apply Each Factor Represents 1 point: Obesity (BMI >25) Each Risk Factor Represents 2 Points: Age 61-74 years Thrombosis Risk Factor Assessment Total Risk Factor Score: 3 Thrombosis Risk Factor Assessment Level: Moderate Risk Assessment and Plan Assessment: Assessment and plan * Small bowel ileus * Acute enteritis * Acute kidney injury * Diabetes mellitus type 2 * History of hypertension * History of dyslipidemia * In regards to small bowel obvious, serial abdominal exams, CT abdomen pelvis reviewed, continue patient on clear liquid diet. General surgery consulted continue with fluid resuscitation, nasogastric tube ordered, patient would not want to hold will request if nausea does not get better. Patient explained that there is a high risk of aspiration if her bowel obstruction gets worse * In regards to acute enteritis, stool C. difficile ordered, stool cultures ordered started on Levaquin and Flagyl. Continue patient on clear liquid diet * In regards to diabetes mellitus, continue patient on clear liquid diet Accu- Cheks ACHS continue patient on correctional insulin and NovoLog monitor for hypoglycemia * In regards to acute kidney injury follow-up on creatinine levels, creatinine 1.51. Continue fluid resuscitation hold olmesartan/hydrochlorothiazide * In regards to history of hypertension continue patient on Minipress * Status is full code Time with Patient: Greater than 30
[2023-05-12 13:01] VITALS: BMI 29.2
[2023-05-12] MEDS ORDERED: LEVOFLOXACIN 500MG-D5W PMX 500 MG in DEXTROSE/WATER 1 100ML.BAG IVPB SCH (14:00)
[2023-05-12] MEDS: DICYCLOMINE 20 MG TAB PO SCH ×3 (14:12→21:23)
[2023-05-12] MEDS: metroNIDAZOLE-NS PMX 500 MG in SALINE 1 100ML.BAG IVPB SCH ×2 (15:46→23:28)
[2023-05-12 16:51] LABS: Glucose,Whole Blood 188 mg/dL (70-110)
[2023-05-12 19:45] LABS: Glucose,Whole Blood 149 mg/dL (70-110)
[2023-05-12] MEDS: ATORVASTATIN 20 MG TAB PO SCH (21:24)
[2023-05-13] MEDS: HYDROmorphone 0.5 MG/0.5 ML SYRINGE IVP PRN ×3 (02:21→21:01)
[2023-05-13 05:31] LABS: Glucose,Whole Blood 122 mg/dL (70-110)
[2023-05-13] MEDS: INSULIN ASPART (NovoLOG) 100 UNIT/ML VIAL SQ SCH ×4 (05:34→21:56)
[2023-05-13] MEDS: SODIUM CHLORIDE 0.9% 1,000 ML IV SCH ×3 (05:35→21:01)
[2023-05-13] MEDS: LINAGLIPTIN 5 MG TABLET PO SCH (08:02)
[2023-05-13] MEDS: PRAZOSIN 1 MG CAP PO SCH ×2 (08:02→20:52)
[2023-05-13] MEDS: PANTOPRAZOLE 40 MG TABLET PO SCH (08:02)
[2023-05-13] MEDS: INSULN ASP PRT/INSULIN ASPART 100 UNIT/ML 10 ML VIAL SQ SCH ×2 (08:08→20:52)
[2023-05-13] MEDS: DICYCLOMINE 20 MG TAB PO SCH ×4 (08:08→20:52)
[2023-05-13] MEDS: metroNIDAZOLE-NS PMX 500 MG in SALINE 1 100ML.BAG IVPB SCH ×3 (08:12→23:43)
[2023-05-13 11:06] LABS: HGB 12.2 g/dL (12.0-15.0); MCH 28.2 pg (27.0-32.0); MCHC 32.1 g/dL (32.0-37.0); MCV 87.8 FL (80.0-97.0); Mean Platelet Volume 10.4 FL (9.5-12.2); NRBC Per 100 WBC 0 X 10*3/uL (0.00-0.01); Platelet Count 287 X 10*3/uL (140-440); RBC 4.33 X 10*6/uL (4.10-5.20); RDW 15.2 % (11.5-14.5); WBC 10.86 X 10*3/uL (4.50-10.00)
[2023-05-13 11:44] LABS: Blood Urea Nitrogen 29.7 mg/dL (9.0-27.0); Calcium 8.2 mg/dL (8.7-10.3); Carbon Dioxide 15.8 mmol/L (21.6-31.8); Chloride 118 mmol/L (96-109); Glucose 127 mg/dL (70-110); Potassium 4.3 mmol/L (3.5-5.5); Sodium 142 mmol/L (135-145)
[2023-05-13 11:54] LABS: Glucose,Whole Blood 99 mg/dL (70-110)
--- NOTE | 2023-05-13 11:59 | XR ---
EXAMINATION TYPE: XR KUB portable DATE OF EXAM: 05/13/2023 6:43 AM CLINICAL INDICATION:Female, 72 years old with history of Follow-up bowel obstruction; [facility] COMPARISON: Radiograph one day prior, CT 03/27/2023. TECHNIQUE: One radiographic view of the abdomen was obtained. FINDINGS: Similar gaseous dilation of bowel throughout the abdomen. There is no evidence for organome nael or pneumoperitoneum. The osseous structures are intact. No abnormal calcifications are present . Fecal material and gas are demonstrated throughout the colon and rectum. Bilateral hip arthroplasties. The right hip arthroplasty femoral head component appears high riding a nd eccentrically displaced superior than would be expected. IMPRESSION: 1. No significant change persistent gaseous dilation of bowel correlate for ileus. 2. Stable appearance of the bilateral hip prostheses. These are both asymmetrically riding higher in the in the acetabular cup than expected suggesting polyethylene liner wear.
--- NOTE | 2023-05-13 12:24 | P.PN ---
Subjective Progress Note Date: 05/13/23 * 72-year-old patient with past medical history significant for diabetes mellitus, hypertension, gastroesophageal reflux disease, history of psoriasis, who underwent cholecystectomy in March 2023 presents to the emergency department with complaints of nausea, vomiting and abdominal pain. Patient had complaint of abdominal bloating, nausea and vomiting. Patient denies associated coffee-ground emesis, melena, chest pain, fever, chills * Workup initiated in ER included hematology which showed WBC 14.5 hemoglobin 15 platelet count of 376. Serum chemistry showed sodium 139 potassium 4 BUN 39 creatinine 1.51 blood glucose 200. Urinalysis was negative for infectious process * Patient tested negative for influenza RSV and COVID * Liver profile essentially negative lipase within normal limits 168 * While in ER patient was resuscitated with IV fluid given Zofran as needed for nausea and pain control IV Dilaudid was given * CT abdomen and pelvis obtained in ER did show possible ileus without obstructi on or small bowel, multiple fluid levels were noted and small bowels no sonographic transition was noted no obstruction was identified * Patient was admitted to medical floor with consultation from general surgery * 05/13/2023: Patient seen elevated bedside, patient states abdominal distention has improved, on clinical diet full advance as tolerated, stool serial negative continue IV antibiotic receiving Flagyl and Levaquin we will de- escalate depending on clinical course REVIEW OF SYSTEMS: Nausea, abdominal bloating, vomiting abdominal distention IMPROVED CONSTITUTIONAL: No fever, no malaise, no fatigue. HEENT: No recent visual problems or hearing problems. Denied any sore throat. CARDIOVASCULAR: No chest pain, orthopnea, PND, no palpitations, no syncope. PULMONARY: No shortness of breath, no cough, no hemoptysis. GASTROINTESTINAL: Nausea, abdominal bloatingabdominal distention, dry heave IMPROVED NEUROLOGICAL: No headaches, no weakness, no numbness. HEMATOLOGICAL: Denies any bleeding or petechiae. GENITOURINARY: Denies any burning micturition, frequency, or urgency. MUSCULOSKELETAL/RHEUMATOLOGICAL: Denies any joint pain, swelling, or any muscle pain. ENDOCRINE: Denies any polyuria or polydipsia. PHYSICAL EXAMINATION: GENERAL: The patient is alert and oriented x3, not in any acute distress. Well developed, well nourished. HEENT: Pupils are round and equally reacting to light. EOMI. CARDIOVASCULAR: S1 and S2 present. No murmurs, rubs, or gallops. PULMONARY: Chest is clear to auscultation, no wheezing or crackles. ABDOMEN: Soft, nontender, IMPROVED distended, Normal bowel sounds MUSCULOSKELETAL: No joint swelling or deformity. EXTREMITIES: No cyanosis, clubbing, or pedal edema. NEUROLOGICAL: Gross neurological examination did not reveal any focal deficits. SKIN: No rashes. Objective - Vital Signs Vital signs: Vital Signs Temp 98.4 F 05/13/23 07:28 Pulse 85 05/13/23 07:28 Resp 18 05/13/23 07:28 BP 169/69 05/13/23 07:28 Pulse Ox 98 05/13/23 07:28 FiO2 Intake & Output 05/12/23 05/13/23 05/13/23 18:59 06:59 18:59 Intake Total 1000 Balance 1000 Weight 74.843 kg Intake: Intake, IV Titration 1000 Amount Sodium Chloride 0.9% 1, 1000 000 ml @ 125 mls/hr IV . Q8H [facility] Rx#:[id number] Other: Voiding Method Toilet Toilet # Voids 2 - Labs CBC & Chem 7: 05/13/23 05:36 05/13/23 05:36 Labs: Abnormal Lab Results - Last 24 Hours (Table) 05/12/23 05/12/23 05/13/23 Range/Units 16:44 19:44 05:29 WBC (4.50-10.00) X 10*3/uL RDW (11.5-14.5) % Chloride (96-109) mmol/L Carbon Dioxide (21.6-31.8) mmol/L BUN (9.0-27.0) mg/dL Est GFR (CKD-EPI) (>=60) BUN/Creatinine Ratio (12.00-20.00) Ratio Glucose (70-110) mg/dL POC Glucose (mg/dL) 188 H 149 H 122 H (70-110) mg/dL Hemoglobin A1c (<=6.0) % Calcium (8.7-10.3) mg/dL C-Reactive Protein (0.00-0.80) mg/dL Procalcitonin (0.02-0.09) ng/mL 05/13/23 05/13/23 05/13/23 Range/Units 05:36 05:36 05:36 WBC 10.86 H (4.50-10.00) X 10*3/uL RDW 15.2 H (11.5-14.5) % Chloride (96-109) mmol/L Carbon Dioxide (21.6-31.8) mmol/L BUN (9.0-27.0) mg/dL Est GFR (CKD-EPI) (>=60) BUN/Creatinine Ratio (12.00-20.00) Ratio Glucose (70-110) mg/dL POC Glucose (mg/dL) (70-110) mg/dL Hemoglobin A1c 6.4 H (<=6.0) % Calcium (8.7-10.3) mg/dL C-Reactive Protein (0.00-0.80) mg/dL Procalcitonin 0.14 H (0.02-0.09) ng/mL 05/13/23 Range/Units 05:36 WBC (4.50-10.00) X 10*3/uL RDW (11.5-14.5) % Chloride 118 H (96-109) mmol/L Carbon Dioxide 15.8 L (21.6-31.8) mmol/L BUN 29.7 H (9.0-27.0) mg/dL Est GFR (CKD-EPI) 59 L (>=60) BUN/Creatinine Ratio 29.70 H (12.00-20.00) Ratio Glucose 127 H (70-110) mg/dL POC Glucose (mg/dL) (70-110) mg/dL Hemoglobin A1c (<=6.0) % Calcium 8.2 L (8.7-10.3) mg/dL C-Reactive Protein 2.10 H (0.00-0.80) mg/dL Procalcitonin (0.02-0.09) ng/mL Assessment and Plan Assessment: Assessment and plan * Small bowel ileus * Acute enteritis * Acute kidney injury * Diabetes mellitus type 2 * History of hypertension * History of dyslipidemia * In regards to small bowel obvious, serial abdominal exams, CT abdomen pelvis reviewed, continue patient on clear liquid diet. General surgery consulted continue with fluid resuscitation, nasogastric tube ordered, patient would not want to hold will request if nausea does not get better. Patient explained t hat there is a high risk of aspiration if her bowel obstruction gets worse. Improvement noted and will continue clear liquid advance as tolerated. Follow-up KUB to be done as needed * * In regards to acute enteritis, stool C. difficile ordered, stool cultures ordered started on Levaquin and Flagyl day 2 . Continue patient on clear liquid diet, stool C. difficile negative * In regards to diabetes mellitus, continue patient on clear liquid diet Accu- Cheks ACHS continue patient on correctional insulin and NovoLog monitor for hypoglycemia * In regards to acute kidney injury follow-up on creatinine levels, creatinine 1.51. Continue fluid resuscitation hold olmesartan/hydrochlorothiazide * In regards to history of hypertension continue patient on Minipress * Status is full code Time with Patient: Greater than 30
[2023-05-13] MEDS: CHOLESTYRAMINE (WITH SUGAR) 4 GM PACKET PO SCH ×2 (15:15→17:09)
--- NOTE | 2023-05-13 15:15 | P.PN ---
Subjective Progress Note Date: 05/13/23 CHIEF COMPLAINT: Abdominal pain with nausea and diarrhea HISTORY OF PRESENT ILLNESS: Patient reports improving abdominal pain and nausea. She is still having some diarrhea. Stool for C. difficile is negative. KUB x- ray reports no significant change persistent gaseous dilation of the bowel correlate for ileus. Afebrile. WBC is down from 11.67-10.86 Hgb 12.2 platelets 287 sodium 142 potassium 4.3 creatinine 1.0 PHYSICAL EXAM: VITAL SIGNS: Reviewed. GENERAL: Well-developed in no acute distress. ABDOMEN: Soft. Mildly distended. Some mild tenderness across the mid abdomen. NEUROLOGIC: Alert and oriented. Cranial nerves II through XII grossly intact. ASSESSMENT: 1. Ileus 2. Possible gastroenteritis 3. Acute kidney injury 4. Recent cholecystectomy PLAN: -Add Questran for continuous diarrhea and recent cholecystectomy -Add full liquid diet -Continue supportive care -Encourage patient to ambulate Physician Ingot Buggy Operator note has been reviewed by physician. Signing provider agrees with the documented findings, assessment, and plan of care. I have personally seen and examined the patient, reviewed the PURCHASING ADMINISTRATIVE ASSISTANT /PAs history, exam and MDM and agree with the assessment and plan as written. Based on total visit time, I have performed more than 50% of the visit. As above: Patient says she feels better today. Only 2 loose stools today. Tolerated full liquids. Minimal nausea. No vomiting. Think she is less distended. Abdominal x-rays still show mildly dilated loops of bowel. Continue full liquid diet. Ambulate. Will follow. Objective - Vital Signs Vital signs: Vital Signs Temp 98.1 F 05/13/23 14:51 Pulse 78 05/13/23 14:51 Resp 17 05/13/23 14:51 BP 158/72 05/13/23 14:51 Pulse Ox 98 05/13/23 14:51 FiO2 Intake & Output 05/12/23 05/13/23 05/13/23 18:59 06:59 18:59 Intake Total 1000 Balance 1000 Weight 74.843 kg Intake: Intake, IV Titration 1000 Amount Sodium Chloride 0.9% 1, 1000 000 ml @ 125 mls/hr IV . Q8H [facility] Rx#:[id number] Other: Voiding Method Toilet Toilet # Voids 2 - Labs CBC & Chem 7: 05/13/23 05:36 05/13/23 05:36 Labs: Abnormal Lab Results - Last 24 Hours (Table) 05/12/23 05/12/23 05/13/23 Range/Units 16:44 19:44 05:29 WBC (4.50-10.00) X 10*3/uL RDW (11.5-14.5) % Chloride (96-109) mmol/L Carbon Dioxide (21.6-31.8) mmol/L BUN (9.0-27.0) mg/dL Est GFR (CKD-EPI) (>=60) BUN/Creatinine Ratio (12.00-20.00) Ratio Glucose (70-110) mg/dL POC Glucose (mg/dL) 188 H 149 H 122 H (70-110) mg/dL Hemoglobin A1c (<=6.0) % Calcium (8.7-10.3) mg/dL C-Reactive Protein (0.00-0.80) mg/dL Procalcitonin (0.02-0.09) ng/mL 05/13/23 05/13/23 05/13/23 Range/Units 05:36 05:36 05:36 WBC 10.86 H (4.50-10.00) X 10*3/uL RDW 15.2 H (11.5-14.5) % Chloride (96-109) mmol/L Carbon Dioxide (21.6-31.8) mmol/L BUN (9.0-27.0) mg/dL Est GFR (CKD-EPI) (>=60) BUN/Creatinine Ratio (12.00-20.00) Ratio Glucose (70-110) mg/dL POC Glucose (mg/dL) (70-110) mg/dL Hemoglobin A1c 6.4 H (<=6.0) % Calcium (8.7-10.3) mg/dL C-Reactive Protein (0.00-0.80) mg/dL Procalcitonin 0.14 H (0.02-0.09) ng/mL 05/13/23 Range/Units 05:36 WBC (4.50-10.00) X 10*3/uL RDW (11.5-14.5) % Chloride 118 H (96-109) mmol/L Carbon Dioxide 15.8 L (21.6-31.8) mmol/L BUN 29.7 H (9.0-27.0) mg/dL Est GFR (CKD-EPI) 59 L (>=60) BUN/Creatinine Ratio 29.70 H (12.00-20.00) Ratio Glucose 127 H (70-110) mg/dL POC Glucose (mg/dL) (70-110) mg/dL Hemoglobin A1c (<=6.0) % Calcium 8.2 L (8.7-10.3) mg/dL C-Reactive Protein 2.10 H (0.00-0.80) mg/dL Procalcitonin (0.02-0.09) ng/mL
[2023-05-13] MEDS: LEVOFLOXACIN 250MG-D5W PMX 250 MG in DEXTROSE/WATER 1 50ML.BAG IVPB SCH (15:16)
[2023-05-13 16:45] LABS: Glucose,Whole Blood 102 mg/dL (70-110)
[2023-05-13 19:32] LABS: Glucose,Whole Blood 148 mg/dL (70-110)
[2023-05-13] MEDS: ATORVASTATIN 20 MG TAB PO SCH (20:51)
[2023-05-14] MEDS: SODIUM CHLORIDE 0.9% 1,000 ML IV SCH ×2 (02:46→12:10)
[2023-05-14 05:31] LABS: Glucose,Whole Blood 73 mg/dL (70-110)
[2023-05-14] MEDS: INSULIN ASPART (NovoLOG) 100 UNIT/ML VIAL SQ SCH ×4 (06:14→21:10)
[2023-05-14] MEDS: PANTOPRAZOLE 40 MG TABLET PO SCH (06:23)
[2023-05-14] MEDS: metroNIDAZOLE-NS PMX 500 MG in SALINE 1 100ML.BAG IVPB SCH ×2 (08:30→17:12)
[2023-05-14] MEDS: PRAZOSIN 1 MG CAP PO SCH ×2 (08:30→22:21)
[2023-05-14] MEDS: CHOLESTYRAMINE (WITH SUGAR) 4 GM PACKET PO SCH ×4 (08:30→17:14)
[2023-05-14] MEDS: LINAGLIPTIN 5 MG TABLET PO SCH (08:31)
[2023-05-14] MEDS: METOPROLOL SUCCINATE (ER) 100 MG TAB.ER.24H PO SCH (08:31)
[2023-05-14] MEDS: DICYCLOMINE 20 MG TAB PO SCH ×4 (08:31→21:22)
[2023-05-14] MEDS: INSULN ASP PRT/INSULIN ASPART 100 UNIT/ML 10 ML VIAL SQ SCH ×2 (08:31→21:19)
[2023-05-14 09:37] LABS: HCT 33.1 % (37.2-46.3); HGB 10.8 g/dL (12.0-15.0); MCH 28.5 pg (27.0-32.0); MCHC 32.6 g/dL (32.0-37.0); MCV 87.3 FL (80.0-97.0); Mean Platelet Volume 10.4 FL (9.5-12.2); NRBC Per 100 WBC 0 X 10*3/uL (0.00-0.01); Platelet Count 261 X 10*3/uL (140-440); RBC 3.79 X 10*6/uL (4.10-5.20); RDW 15.4 % (11.5-14.5); WBC 7.84 X 10*3/uL (4.50-10.00)
[2023-05-14 09:47] LABS: BUN/Creat Ratio 19.27 Ratio (12.00-20.00); Blood Urea Nitrogen 21.2 mg/dL (9.0-27.0); Chloride 119 mmol/L (96-109); Glucose 71 mg/dL (70-110); Potassium 3.9 mmol/L (3.5-5.5); Sodium 142 mmol/L (135-145)
[2023-05-14 09:48] LABS: Carbon Dioxide 16.3 mmol/L (21.6-31.8)
[2023-05-14 11:52] LABS: Glucose,Whole Blood 77 mg/dL (70-110)
--- NOTE | 2023-05-14 14:04 | P.PN ---
Subjective Progress Note Date: 05/14/23 * 72-year-old patient with past medical history significant for diabetes mellitus, hypertension, gastroesophageal reflux disease, history of psoriasis, who underwent cholecystectomy in March 2023 presents to the emergency department with complaints of nausea, vomiting and abdominal pain. Patient had complaint of abdominal bloating, nausea and vomiting. Patient denies associated coffee-ground emesis, melena, chest pain, fever, chills * Workup initiated in ER included hematology which showed WBC 14.5 hemoglobin 15 platelet count of 376. Serum chemistry showed sodium 139 potassium 4 BUN 39 creatinine 1.51 blood glucose 200. Urinalysis was negative for infectious process * Patient tested negative for influenza RSV and COVID * Liver profile essentially negative lipase within normal limits 168 * While in ER patient was resuscitated with IV fluid given Zofran as needed for nausea and pain control IV Dilaudid was given * CT abdomen and pelvis obtained in ER did show possible ileus without obstructi on or small bowel, multiple fluid levels were noted and small bowels no sonographic transition was noted no obstruction was identified * Patient was admitted to medical floor with consultation from general surgery * 05/13/2023: Patient seen elevated bedside, patient states abdominal distention has improved, on clinical diet full advance as tolerated, stool serial negative continue IV antibiotic receiving Flagyl and Levaquin we will de- escalate depending on clinical course * 05/14/2023: Patient seen and evaluated bedside, patient states abdominal distention has improved, does have diarrhea, continue patient on a liquid diet electrolyte panel and CBC reviewed CRP around 2. REVIEW OF SYSTEMS: Nausea, abdominal bloating, vomiting abdominal distention resolved CONSTITUTIONAL: No fever, no malaise, no fatigue. HEENT: No recent visual problems or hearing problems. Denied any sore throat. CARDIOVASCULAR: No chest pain, orthopnea, PND, no palpitations, no syncope. PULMONARY: No shortness of breath, no cough, no hemoptysis. GASTROINTESTINAL: Nausea, abdominal bloatingabdominal distention resolved, dry heave resolved, diarrhea present NEUROLOGICAL: No headaches, no weakness, no numbness. HEMATOLOGICAL: Denies any bleeding or petechiae. GENITOURINARY: Denies any burning micturition, frequency, or urgency. MUSCULOSKELETAL/RHEUMATOLOGICAL: Denies any joint pain, swelling, or any muscle pain. ENDOCRINE: Denies any polyuria or polydipsia. PHYSICAL EXAMINATION: GENERAL: The patient is alert and oriented x3, not in any acute distress. Well developed, well nourished. HEENT: Pupils are round and equally reacting to light. EOMI. CARDIOVASCULAR: S1 and S2 present. No murmurs, rubs, or gallops. PULMONARY: Chest is clear to auscultation, no wheezing or crackles. ABDOMEN: Soft, nontender, IMPROVED distended, Normal bowel sounds MUSCULOSKELETAL: No joint swelling or deformity. EXTREMITIES: No cyanosis, clubbing, or pedal edema. NEUROLOGICAL: Gross neurological examination did not reveal any focal deficits. SKIN: No rashes. Objective - Vital Signs Vital signs: Vital Signs Temp 98.0 F 05/14/23 07:11 Pulse 75 05/14/23 07:11 Resp 19 05/14/23 07:11 BP 145/72 05/14/23 07:11 Pulse Ox 99 05/14/23 07:11 FiO2 Intake & Output 05/13/23 05/14/23 05/14/23 18:59 06:59 18:59 Intake Total 2014 Balance 2014 Intake: Intake, IV Titration 1375 Amount Sodium Chloride 0.9% 1, 1375 000 ml @ 125 mls/hr IV . Q8H [facility] Rx#:[id number] Oral 640 Other: Voiding Method Toilet # Voids 3 2 - Labs CBC & Chem 7: 05/14/23 06:46 05/14/23 06:46 Labs: Abnormal Lab Results - Last 24 Hours (Table) 05/13/23 05/14/23 05/14/23 Range/Units 19:31 06:46 06:46 RBC 3.79 L (4.10-5.20) X 10*6/uL Hgb 10.8 L (12.0-15.0) g/dL Hct 33.1 L (37.2-46.3) % RDW 15.4 H (11.5-14.5) % Chloride 119 H (96-109) mmol/L Carbon Dioxide 16.3 L (21.6-31.8) mmol/L Est GFR (CKD-EPI) 53 L (>=60) POC Glucose (mg/dL) 148 H (70-110) mg/dL Calcium 8.0 L (8.7-10.3) mg/dL C-Reactive Protein 2.00 H (0.00-0.80) mg/dL Assessment and Plan Assessment: Assessment and plan * Small bowel ileus * Acute enteritis * Acute kidney injury * Diabetes mellitus type 2 * History of hypertension * History of dyslipidemia * In regards to small bowel obvious, serial abdominal exams, CT abdomen pelvis reviewed, continue patient on full liquid General surgery consulted continue with fluid resuscitation, nasogastric tube ordered, patient would not want to hold will request if nausea does not get better. Patient explained that there is a high risk of aspiration if her bowel obstruction gets worse. Improvement noted and will continue clear liquid advance as tolerated. Fo llow-up KUB to be done as needed * * In regards to acute enteritis, stool C. difficile ordered, stool cultures ordered started on Levaquin and Flagyl day3/5 . Continue patient on liquid diet, stool C. difficile negative * In regards to diabetes mellitus, continue patient on clear liquid diet Accu- Cheks ACHS continue patient on correctional insulin and NovoLog monitor for hypoglycemia * In regards to acute kidney injury follow-up on creatinine levels, creatinine 1.51. Continue fluid resuscitation hold olmesartan/hydrochlorothiazide, will discontinue IV fluid later today * In regards to history of hypertension continue patient on Minipress * Status is full code
[2023-05-14] MEDS: LEVOFLOXACIN 250MG-D5W PMX 250 MG in DEXTROSE/WATER 1 50ML.BAG IVPB SCH (14:23)
--- NOTE | 2023-05-14 16:23 | P.PN ---
Subjective Progress Note Date: 05/14/23 NAEON. No N/V. No F/C. NO SOB or CP. Ambulatory and voiding. Admits to flatus, no BM. Tolerating diet. Objective - Vital Signs Vital signs: Vital Signs Temp 98.5 F 05/14/23 14:10 Pulse 83 05/14/23 14:10 Resp 19 05/14/23 14:10 BP 149/73 05/14/23 14:10 Pulse Ox 99 05/14/23 14:10 FiO2 Intake & Output 05/13/23 05/14/23 05/14/23 18:59 06:59 18:59 Intake Total 2014 Balance 2014 Intake: Intake, IV Titration 1375 Amount Sodium Chloride 0.9% 1, 1375 000 ml @ 125 mls/hr IV . Q8H [facility] Rx#:[id number] Oral 640 Other: Voiding Method Toilet # Voids 3 2 - Exam Gen: AxO, NAD Pulm: non-labored respirations Abd: soft, non-tender, non-distended. No guarding/rebound/rigidity Extrem: no edema seen - Labs CBC & Chem 7: 05/14/23 06:46 05/14/23 06:46 Labs: Abnormal Lab Results - Last 24 Hours (Table) 05/13/23 05/14/23 05/14/23 Range/Units 19:31 06:46 06:46 RBC 3.79 L (4.10-5.20) X 10*6/uL Hgb 10.8 L (12.0-15.0) g/dL Hct 33.1 L (37.2-46.3) % RDW 15.4 H (11.5-14.5) % Chloride 119 H (96-109) mmol/L Carbon Dioxide 16.3 L (21.6-31.8) mmol/L Est GFR (CKD-EPI) 53 L (>=60) POC Glucose (mg/dL) 148 H (70-110) mg/dL Calcium 8.0 L (8.7-10.3) mg/dL C-Reactive Protein 2.00 H (0.00-0.80) mg/dL Assessment and Plan Assessment: Patient is a 72 year old female who presents with ileus, now resolving Plan: -Diet as tolerated -Bowel regimen -PRN pain and nausea control -DVT/GI PPx -Care per primary -No acute surgical intervention Mika Valenzuela MD General Surgery
[2023-05-14 16:52] LABS: Glucose,Whole Blood 104 mg/dL (70-110)
[2023-05-14 20:44] LABS: Glucose,Whole Blood 94 mg/dL (70-110)
[2023-05-14] MEDS: ATORVASTATIN 20 MG TAB PO SCH (21:22)
[2023-05-14] MEDS: HYDROmorphone 0.5 MG/0.5 ML SYRINGE IVP PRN (21:22)
[2023-05-15] MEDS: metroNIDAZOLE-NS PMX 500 MG in SALINE 1 100ML.BAG IVPB SCH ×2 (00:30→11:19)
[2023-05-15 06:19] LABS: Glucose,Whole Blood 76 mg/dL (70-110)
[2023-05-15] MEDS: PANTOPRAZOLE 40 MG TABLET PO SCH (06:30)
[2023-05-15] MEDS: INSULIN ASPART (NovoLOG) 100 UNIT/ML VIAL SQ SCH ×3 (07:50→16:46)
--- NOTE | 2023-05-15 08:01 | XR ---
EXAMINATION TYPE: XR KUB portable DATE OF EXAM: 05/15/2023 COMPARISON: May 13, 2023 HISTORY: Pain TECHNIQUE: Single supine KUB image of the abdomen is obtained FINDINGS: Stable distention of what appears to be predominantly large bowel. No convincing evidence for pneumoperitoneum. No unusual calcifications. The lung bases are clear. The osseous structures are intact. IMPRESSION: 1. Stable distention of what appears to be predominantly large bowel.
[2023-05-15 08:05] LABS: HCT 33.8 % (34.0-46.0); MCH 30.4 pg (25.0-35.0); MCHC 35.8 g/dL (31.0-37.0); Mean Platelet Volume 9.2; Platelet Count 206 k/uL (150-450); Poikilocytosis Slight; RBC 3.97 m/uL (3.80-5.40); RDW 15.2 % (11.5-15.5); WBC 7.3 k/uL (3.8-10.6)
[2023-05-15 08:12] LABS: HGB 12.1 gm/dL (11.4-16.0)
[2023-05-15] MEDS: INSULN ASP PRT/INSULIN ASPART 100 UNIT/ML 10 ML VIAL SQ SCH ×2 (09:07→21:05)
[2023-05-15] MEDS: LINAGLIPTIN 5 MG TABLET PO SCH (09:07)
[2023-05-15] MEDS: DICYCLOMINE 20 MG TAB PO SCH ×4 (09:07→21:05)
[2023-05-15] MEDS: CHOLESTYRAMINE (WITH SUGAR) 4 GM PACKET PO SCH ×3 (09:08→18:29)
[2023-05-15] MEDS: METOPROLOL SUCCINATE (ER) 100 MG TAB.ER.24H PO SCH (09:08)
[2023-05-15] MEDS: PRAZOSIN 1 MG CAP PO SCH ×2 (09:08→21:05)
[2023-05-15 11:10] LABS: African American GFR (CKD) 62 (>60 ml/min/1.73 sqM); Anion Gap 7 mmol/L; Blood Urea Nitrogen 16 mg/dL (7-17); C Reactive Protein 1.3 mg/dL (<1.0); Calcium 8.9 mg/dL (8.4-10.2); Carbon Dioxide 11 mmol/L (22-30); Chloride 123 mmol/L (98-107); Glucose 91 mg/dL (74-99); Non-African American GFR(CKD) 54 (>60 ml/min/1.73 sqM); Sodium 141 mmol/L (137-145)
[2023-05-15 11:17] LABS: Potassium 4.6 mmol/L (3.5-5.1)
[2023-05-15 11:54] LABS: Glucose,Whole Blood 62 mg/dL (70-110)
--- NOTE | 2023-05-15 12:59 | P.PN ---
Subjective Progress Note Date: 05/15/23 Principal diagnosis: Abdominal pain Patient says she is feeling much better. Still having occasional loose stools. Tolerating diet. Abdominal x-ray from today shows mild colonic dilation. Labs are normal. Objective - Vital Signs Vital signs: Vital Signs Temp 98.1 F 05/15/23 07:27 Pulse 72 05/15/23 07:27 Resp 19 05/15/23 07:27 BP 158/66 05/15/23 07:27 Pulse Ox 98 05/15/23 07:27 FiO2 Intake & Output 05/14/23 05/15/23 05/15/23 18:59 06:59 18:59 Other: # Voids 3 2 - Exam Abdomen: Soft, nondistended, nontender - Labs CBC & Chem 7: 05/15/23 07:22 05/15/23 07:22 Labs: Abnormal Lab Results - Last 24 Hours (Table) 05/15/23 05/15/23 05/15/23 Range/Units 07:22 07:22 11:52 Hct 33.8 L (34.0-46.0) % Chloride 123 H (98-107) mmol/L Carbon Dioxide 11 L (22-30) mmol/L POC Glucose (mg/dL) 62 L (70-110) mg/dL C-Reactive Protein 1.3 H (<1.0) mg/dL Microbiology - Last 24 Hours (Table) 05/12/23 13:15 Stool Culture - Preliminary Stool Assessment and Plan (1) Ileus Narrative/Plan: Patient clinically improving. Advance to regular diet at this time. Continue ambulation. Continue dicyclomine and Questran. Current Visit: Yes Status: Acute Code(s): K56.7 - ILEUS, UNSPECIFIED SNOMED Code(s): 302555432
--- NOTE | 2023-05-15 13:06 | P.PN ---
Subjective Progress Note Date: 05/15/23 * 72-year-old patient with past medical history significant for diabetes mellitus, hypertension, gastroesophageal reflux disease, history of psoriasis, who underwent cholecystectomy in March 2023 presents to the emergency department with complaints of nausea, vomiting and abdominal pain. Patient had complaint of abdominal bloating, nausea and vomiting. Patient denies associated coffee-ground emesis, melena, chest pain, fever, chills * Workup initiated in ER included hematology which showed WBC 14.5 hemoglobin 15 platelet count of 376. Serum chemistry showed sodium 139 potassium 4 BUN 39 creatinine 1.51 blood glucose 200. Urinalysis was negative for infectious process * Patient tested negative for influenza RSV and COVID * Liver profile essentially negative lipase within normal limits 168 * While in ER patient was resuscitated with IV fluid given Zofran as needed for nausea and pain control IV Dilaudid was given * CT abdomen and pelvis obtained in ER did show possible ileus without obstructi on or small bowel, multiple fluid levels were noted and small bowels no sonographic transition was noted no obstruction was identified * Patient was admitted to medical floor with consultation from general surgery * 05/13/2023: Patient seen elevated bedside, patient states abdominal distention has improved, on clinical diet full advance as tolerated, stool serial negative continue IV antibiotic receiving Flagyl and Levaquin we will de- escalate depending on clinical course * 05/14/2023: Patient seen and evaluated bedside, patient states abdominal distention has improved, does have diarrhea, continue patient on a liquid diet electrolyte panel and CBC reviewed CRP around 2. * 05/15/2023: patient seen and evaluated at bedside, on evaluation patient states she is still having diarrhea however abdominal distention has improved diet to be advanced. Potential discharge home within the next 24 hours. Continue patient on antibiotic receiving Levaquin and Flagyl REVIEW OF SYSTEMS: Nausea RESOLVED , abdominal bloating, vomiting abdominal distention resolved CONSTITUTIONAL: No fever, no malaise, no fatigue. HEENT: No recent visual problems or hearing problems. Denied any sore throat. CARDIOVASCULAR: No chest pain, orthopnea, PND, no palpitations, no syncope. PULMONARY: No shortness of breath, no cough, no hemoptysis. GASTROINTESTINAL: Nausea, abdominal bloating abdominal distention resolved, dry heave resolved, diarrhea present NEUROLOGICAL: No headaches, no weakness, no numbness. HEMATOLOGICAL: Denies any bleeding or petechiae. GENITOURINARY: Denies any burning micturition, frequency, or urgency. MUSCULOSKELETAL/RHEUMATOLOGICAL: Denies any joint pain, swelling, or any muscle pain. ENDOCRINE: Denies any polyuria or polydipsia. PHYSICAL EXAMINATION: GENERAL: The patient is alert and oriented x3, not in any acute distress. Well developed, well nourished. HEENT: Pupils are round and equally reacting to light. EOMI. CARDIOVASCULAR: S1 and S2 present. No murmurs, rubs, or gallops. PULMONARY: Chest is clear to auscultation, no wheezing or crackles. ABDOMEN: Soft, nontender, IMPROVED distended, Normal bowel sounds MUSCULOSKELETAL: No joint swelling or deformity. EXTREMITIES: No cyanosis, clubbing, or pedal edema. NEUROLOGICAL: Gross neurological examination did not reveal any focal deficits. SKIN: No rashes. Objective - Vital Signs Vital signs: Vital Signs Temp 98.5 F 05/14/23 14:10 Pulse 83 05/14/23 14:10 Resp 19 05/14/23 14:10 BP 149/73 05/14/23 14:10 Pulse Ox 99 05/14/23 14:10 FiO2 Intake & Output 05/14/23 05/14/23 05/15/23 06:59 18:59 06:59 Intake Total 2014 Balance 2014 Intake: Intake, IV Titration 1375 Amount Sodium Chloride 0.9% 1, 1375 000 ml @ 125 mls/hr IV . Q8H [facility] Rx#:[id number] Oral 640 Other: # Voids 2 3 - Labs CBC & Chem 7: 05/15/23 07:22 05/15/23 07:22 Labs: Abnormal Lab Results - Last 24 Hours (Table) 05/14/23 05/14/23 Range/Units 06:46 06:46 RBC 3.79 L (4.10-5.20) X 10*6/uL Hgb 10.8 L (12.0-15.0) g/dL Hct 33.1 L (37.2-46.3) % RDW 15.4 H (11.5-14.5) % Chloride 119 H (96-109) mmol/L Carbon Dioxide 16.3 L (21.6-31.8) mmol/L Est GFR (CKD-EPI) 53 L (>=60) Calcium 8.0 L (8.7-10.3) mg/dL C-Reactive Protein 2.00 H (0.00-0.80) mg/dL Assessment and Plan Assessment: Assessment and plan * Small bowel ileus * Acute enteritis * Acute kidney injury * Diabetes mellitus type 2 * History of hypertension * History of dyslipidemia * In regards to small bowel obvious, serial abdominal exams, CT abdomen pelvis reviewed, continue patient on full liquid General surgery consulted continue with fluid resuscitation, nasogastric tube ordered, patient would not want to hold will request if nausea does not get better. Patient explained that there is a high risk of aspiration if her bowel obstruction gets worse. X-ray KUB does show distention. Diet advanced * In regards to acute enteritis, stool C. difficile ordered, stool cultures ordered started on Levaquin and Flagyl day day 5. Continue patient on liquid diet, stool C. difficile negative * In regards to diabetes mellitus, continue patient on clear liquid diet Accu- Cheks ACHS continue patient on correctional insulin and NovoLog monitor for hypoglycemia * In regards to acute kidney injury follow-up on creatinine levels, creatinine 1.51. Continue fluid resuscitation hold olmesartan/hydrochlorothiazide, will discontinue IV fluid later today * In regards to history of hypertension continue patient on Minipress * Status is full code Time with Patient: Greater than 30
[2023-05-15] MEDS: metroNIDAZOLE 500 MG TAB PO SCH ×2 (15:22→21:05)
[2023-05-15] MEDS: LEVOFLOXACIN 250 MG TAB PO SCH (15:22)
[2023-05-15] MEDS: LEVOFLOXACIN 250MG-D5W PMX 250 MG in DEXTROSE/WATER 1 50ML.BAG IVPB SCH (15:33)
[2023-05-15 16:44] LABS: Glucose,Whole Blood 78 mg/dL (70-110)
[2023-05-15 20:11] LABS: Glucose,Whole Blood 131 mg/dL (70-110)
[2023-05-15] MEDS: ATORVASTATIN 20 MG TAB PO SCH (21:05)
[2023-05-16] MEDS: INSULIN ASPART (NovoLOG) 100 UNIT/ML VIAL SQ SCH ×3 (01:59→11:46)
[2023-05-16 02:22] VITALS: PULSE 79
[2023-05-16 05:55] LABS: Glucose,Whole Blood 72 mg/dL (70-110)
[2023-05-16] MEDS: PANTOPRAZOLE 40 MG TABLET PO SCH (06:39)
[2023-05-16] MEDS: DICYCLOMINE 20 MG TAB PO SCH ×2 (08:49→13:04)
[2023-05-16] MEDS: metroNIDAZOLE 500 MG TAB PO SCH (08:49)
[2023-05-16] MEDS: LINAGLIPTIN 5 MG TABLET PO SCH (08:49)
[2023-05-16] MEDS: LEVOFLOXACIN 250 MG TAB PO SCH (08:50)
[2023-05-16] MEDS: METOPROLOL SUCCINATE (ER) 100 MG TAB.ER.24H PO SCH (08:51)
[2023-05-16] MEDS: PRAZOSIN 1 MG CAP PO SCH (08:51)
[2023-05-16] MEDS: INSULN ASP PRT/INSULIN ASPART 100 UNIT/ML 10 ML VIAL SQ SCH (09:03)
[2023-05-16 09:12] LABS: BUN/Creat Ratio 11.75 Ratio (12.00-20.00); Blood Urea Nitrogen 14.1 mg/dL (9.0-27.0); Carbon Dioxide 17.2 mmol/L (21.6-31.8); Chloride 116 mmol/L (96-109); Glucose 65 mg/dL (70-110); Potassium 3.3 mmol/L (3.5-5.5); Sodium 143 mmol/L (135-145)
[2023-05-16 09:19] VITALS: BP 162/66; RESP 20; TEMP 98.2
[2023-05-16] MEDS ORDERED: POTASSIUM CHLORIDE ER 20 MEQ TAB.ER PO STA (09:38)
[2023-05-16] MEDS: CHOLESTYRAMINE (WITH SUGAR) 4 GM PACKET PO SCH (10:46)
[2023-05-16 11:41] LABS: Glucose,Whole Blood 68 mg/dL (70-110)
--- NOTE | 2023-05-16 12:48 | P.DS ---
Providers Date of admission: 05/11/23 16:55 Expected date of discharge: 05/16/23 Attending physician: Abdelrahman Lanier MD Consults: 05/16/23 10:04 Consult Physician Routine Consulting Provider: Gerald Tee Consult Reason/Comments: ileus Do you want consulting provider notified?: Already Contacted Primary care physician: Anupama [facility] Course: * 72-year-old patient with past medical history significant for diabetes mellitus, hypertension, gastroesophageal reflux disease, history of psoriasis, who underwent cholecystectomy in March 2023 presents to the emergency department with complaints of nausea, vomiting and abdominal pain. Patient had complaint of abdominal bloating, nausea and vomiting. Patient denies associated coffee-ground emesis, melena, chest pain, fever, chills * Workup initiated in ER included hematology which showed WBC 14.5 hemoglobin 15 platelet count of 376. Serum chemistry showed sodium 139 potassium 4 BUN 39 creatinine 1.51 blood glucose 200. Urinalysis was negative for infectious process * Patient tested negative for influenza RSV and COVID * Liver profile essentially negative lipase within normal limits 168 * While in ER patient was resuscitated with IV fluid given Zofran as needed for nausea and pain control IV Dilaudid was given * CT abdomen and pelvis obtained in ER did show possible ileus without obstruction or small bowel, multiple fluid levels were noted and small bowels no sonographic transition was noted no obstruction was identified * Patient was admitted to medical floor with consultation from general surgery * 05/13/2023: Patient seen elevated bedside, patient states abdominal distention has improved, on clinical diet full advance as tolerated, stool serial negative continue IV antibiotic receiving Flagyl and Levaquin we will de- escalate depending on clinical course * 05/14/2023: Patient seen and evaluated bedside, patient states abdominal distention has improved, does have diarrhea, continue patient on a liquid diet electrolyte panel and CBC reviewed CRP around 2. * 05/15/2023: patient seen and evaluated at bedside, on evaluation patient states she is still having diarrhea however abdominal distention has improved diet to be advanced. Potential discharge home within the next 24 hours. Continue patient on antibiotic receiving Levaquin and Flagyl * 05/16/2023: Patient seen and evaluated bedside, patient states she is tolerating diet had 1 bowel movement getting formed requesting discharge. Electrolytes replace potassium given. Transition to oral antibiotic. Patient to be discharged home, outpatient follow-up with primary care physician and surgery recommend REVIEW OF SYSTEMS: Nausea RESOLVED , abdominal bloating, vomiting abdominal distention resolved CONSTITUTIONAL: No fever, no malaise, no fatigue. HEENT: No recent visual problems or hearing problems. Denied any sore throat. CARDIOVASCULAR: No chest pain, orthopnea, PND, no palpitations, no syncope. PULMONARY: No shortness of breath, no cough, no hemoptysis. GASTROINTESTINAL: Nausea, abdominal bloating abdominal distention resolved, dry heave resolved, diarrhea proved NEUROLOGICAL: No headaches, no weakness, no numbness. HEMATOLOGICAL: Denies any bleeding or petechiae. GENITOURINARY: Denies any burning micturition, frequency, or urgency. MUSCULOSKELETAL/RHEUMATOLOGICAL: Denies any joint pain, swelling, or any muscle pain. ENDOCRINE: Denies any polyuria or polydipsia. PHYSICAL EXAMINATION: GENERAL: The patient is alert and oriented x3, not in any acute distress. Well developed, well nourished. HEENT: Pupils are round and equally reacting to light. EOMI. CARDIOVASCULAR: S1 and S2 present. No murmurs, rubs, or gallops. PULMONARY: Chest is clear to auscultation, no wheezing or crackles. ABDOMEN: Soft, nontender, IMPROVED, distention resolved, Normal bowel sounds MUSCULOSKELETAL: No joint swelling or deformity. EXTREMITIES: No cyanosis, clubbing, or pedal edema. NEUROLOGICAL: Gross neurological examination did not reveal any focal deficits. SKIN: No rashes. Assessment and plan * Small bowel ileus RESOLVED * Acute enteritis * Acute kidney injury RESOLVED * Diabetes mellitus type 2 * History of hypertension * History of dyslipidemia * In regards to small bowel obvious, serial abdominal exams, CT abdomen pelvis reviewed, continue patient on full liquid General surgery consulted continue with fluid resuscitation, nasogastric tube ordered, patient would not want to hold will request if nausea does not get better. Patient explained that there is a high risk of aspiration if her bowel obstruction gets worse. X-ray KUB does showed distention. Diet advanced, able to tolerate diet without difficulty * In regards to acute enteritis, stool C. difficile ordered, stool cultures ordered started on Levaquin and Flagyl day day 5/7. Prescription for 2 days provided , stool C. difficile negative, discharged on regular diet * In regards to diabetes mellitus, continue patient on clear liquid diet Accu- Cheks ACHS continue home regimen upon discharge * In regards to acute kidney injury follow-up on creatinine levels, creatinine 1.51. Appropriately resuscitated with fluid, creatinine trending down continue home regimen upon discharge * In regards to history of hypertension continue patient on Minipress * Status is full code Patient Condition at Discharge: Stable Plan - Discharge Summary Discharge Rx Participant: No New Discharge Prescriptions: New metroNIDAZOLE [Flagyl] 500 mg PO TID 2 Days #6 tab Cholestyramine (with Sugar) [Questran Packet] 4 gm PO TID BETWEEN MEALS 7 Days #21 packet Levofloxacin [Levaquin] 250 mg PO DAILY 2 Days #2 tab Continue Metoprolol Succinate [Toprol XL] 200 mg PO DAILY Prazosin [Minipress] 1 mg PO BID Dulaglutide [Trulicity] 1.5 mg SQ PARKER Simethicone [Gas-X] 125 mg PO AC-TID PRN #20 capsule PRN Reason: Pain Pantoprazole [Protonix] 40 mg PO DAILY #14 tab sitaGLIPtin [Januvia] 50 mg PO DAILY Olmesartan/Hydrochlorothiazide [Olmesartan-Hctz 20-12.5 mg Tab] 1 tab PO DAILY Insulin NPL/Insulin Lispro [humaLOG MIX 75-25 VIAL] 70 units SQ BID Acetaminophen Tab [Tylenol] 1,000 mg PO Q6HR PRN #30 tablet PRN Reason: Pain Atorvastatin [Lipitor] 20 mg PO HS Discharge Medication List Metoprolol Succinate [Toprol XL] 200 mg PO DAILY 09/19/16 [History] Prazosin [Minipress] 1 mg PO BID 04/29/17 [History] Dulaglutide [Trulicity] 1.5 mg SQ PARKER 03/22/23 [History] Insulin NPL/Insulin Lispro [humaLOG MIX 75-25 VIAL] 70 units SQ BID 03/22/23 [History] Olmesartan/Hydrochlorothiazide [Olmesartan-Hctz 20-12.5 mg Tab] 1 tab PO DAILY 03/22/23 [History] sitaGLIPtin [Januvia] 50 mg PO DAILY 03/22/23 [History] Acetaminophen Tab [Tylenol] 1,000 mg PO Q6HR PRN #30 tablet 03/25/23 [Rx] Simethicone [Gas-X] 125 mg PO AC-TID PRN #20 capsule 12/15/23 [Rx] Pantoprazole [Protonix] 40 mg PO DAILY #14 tab 03/28/23 [Rx] Atorvastatin [Lipitor] 20 mg PO HS 05/11/23 [History] Cholestyramine (with Sugar) [Questran Packet] 4 gm PO TID BETWEEN MEALS 7 Days #21 packet 05/16/23 [Rx] Levofloxacin [Levaquin] 250 mg PO DAILY 2 Days #2 tab 05/16/23 [Rx] metroNIDAZOLE [Flagyl] 500 mg PO TID 2 Days #6 tab 05/16/23 [Rx] Follow up Appointment(s)/Referral(s): Anupama Johnson MD [Primary Care Provider] - 1-2 days Gerald Tee MD [Medical Doctor] - 1 Week Discharge Disposition: HOME SELF-CARE
--- NOTE | 2023-05-16 14:48 | P.PN ---
Subjective Progress Note Date: 05/16/23 CHIEF COMPLAINT: Abdominal pain with nausea and diarrhea HISTORY OF PRESENT ILLNESS: Patient seen and examined this morning. She reports she is feeling better. She had a bowel movement. She is tolerating diet. Her pain has improved. She feels ready for discharge. Afebrile. Potassium 3.3 and being replaced PHYSICAL EXAM: VITAL SIGNS: Reviewed. GENERAL: Well-developed in no acute distress. ABDOMEN: Soft. nondistended. nontender NEUROLOGIC: Alert and oriented. Cranial nerves II through XII grossly intact. ASSESSMENT: 1. Ileus 2. Gastroenteritis 3. Acute kidney injury 4. Recent cholecystectomy PLAN: -Patient can be discharged from surgical standpoint -Continue [facility] Physician Cloth Bolt Bander note has been reviewed by physician. Signing provider agrees with the documented findings, assessment, and plan of care. Objective - Vital Signs Vital signs: Vital Signs Temp 98.2 F 05/16/23 08:16 Pulse 79 05/16/23 08:16 Resp 20 05/16/23 08:16 BP 162/66 05/16/23 08:16 Pulse Ox 95 05/16/23 08:16 FiO2 Intake & Output 05/15/23 05/16/23 05/16/23 18:59 06:59 18:59 Other: # Voids 3 3 - Labs CBC & Chem 7: 05/15/23 07:22 05/16/23 05:14 Labs: Abnormal Lab Results - Last 24 Hours (Table) 05/15/23 05/16/23 05/16/23 Range/Units 20:08 05:14 11:39 Potassium 3.3 L (3.5-5.5) mmol/L Chloride 116 H (96-109) mmol/L Carbon Dioxide 17.2 L (21.6-31.8) mmol/L Est GFR (CKD-EPI) 48 L (>=60) BUN/Creatinine Ratio 11.75 L (12.00-20.00) Ratio Glucose 65 L (70-110) mg/dL POC Glucose (mg/dL) 131 H 68 L (70-110) mg/dL Microbiology - Last 24 Hours (Table) 05/12/23 13:15 Stool Culture - Final Stool
== END 2023-05-16 13:18 | disposition home or self-care (01) | DRG 389 ==
LOC: EC 09:55 → 4SSUR 16:55
PROVIDERS: ADMIT Internal Medicine; ATTEND Internal Medicine
DX: K56.7 Ileus, unspecified (principal); N17.9 Acute kidney failure, unspecified; K52.89 Other specified noninfective gastroenteritis and colitis; R11.2 Nausea with vomiting, unspecified; E11.9 Type 2 diabetes mellitus without complications; E78.5 Hyperlipidemia, unspecified; K21.9 Gastro-esophageal reflux disease without esophagitis; I10 Essential (primary) hypertension; Z96.643 Presence of artificial hip joint, bilateral; Z85.3 Personal history of malignant neoplasm of breast; Z85.820 Personal history of malignant melanoma of skin; Z79.4 Long term (current) use of insulin; Z79.84 Long term (current) use of oral hypoglycemic drugs; Z79.899 Other long term (current) drug therapy; Z85.44 Personal history of malignant neoplasm of other female genital organs; Z90.710 Acquired absence of both cervix and uterus
CPT/HCPCS: 36415; 74018; 74176; 80048; 80053; 81001; 82150; 83036; 83690; 84145; 85025; 85027; 86140; 87045; 87046; 87324; 87636; 96361; 96374; 96375; 96376; 99285

== ENCOUNTER → 2023-06-20 | Outpatient (CLI) | payer MEDICARE, BC ==
--- NOTE | 2023-06-23 09:43 | MR ---
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 TECHNIQUE: Multiplanar multi-sequence imaging was performed without contrast. Post contrast imaging was performed. Post IV contrast subtraction images were also submitted for review. IV Contrast: 7.5 cc Gadavist FINDINGS: LOWER CHEST: Trace bilateral high T2 signal in the pleural space. ABDOMEN Liver: No evidence for cirrhosis. Signal dropout on chemical shift out of phase imaging. Scattered hi gh DWI signal abnormalities throughout the parenchyma which are higher T2 signal measuring 10 mm in t he left hepatic lobe which progressively enhances on delayed imaging. Additional smaller lesions are most apparent on diffusion-weighted imaging. There remains at least 10 lesions. A majority of which d emonstrate arterial phase enhancement. Some of the enhancement blends in with background hepatic tiss ue on delayed imaging, suggesting vascular shunt phenomenon. Stable other larger lesions in the right hepatic lobe have similar enhancement characteristics as a lesion on the left hepatic lobe which per sists on delayed imaging. No observation that meets HCC criteria. Gallbladder and Bile ducts: No evidence for ductal dilation, or biliary stricture or evidence of chol edocholithiasis. The gallbladder surgically absent. Common bile duct measures up to 6 mm the common h epatic duct measures up to 7 mm. Pancreas: No ductal dilation. No evidence for solid mass. Spleen: Mildly enlarged measuring 15.1, previously similar in size. Cm in caudocranial dimension. Adrenal glands: Unremarkable. Kidneys: No evidence for obstructive uropathy. No suspicious renal masses. Stomach and Bowel: No evidence for bowel wall thickening or evidence for obstruction. Retroperitoneum/Peritoneum: No evidence of pneumoperitoneum or free fluid. Vasculature: No aortic aneurysm. Musculoskeletal: The osseous structures appear intact. Lymph Nodes: No gross evidence for lymphadenopathy. Abdominal wall: Unremarkable. IMPRESSION: 1. No evidence for acute process involving the liver. No ductal dilation, mass or abnormal enhanceme nt. 2. Interval surgical removal of the gallbladder. No evidence for choledocholithiasis or ductal dilat ion. 3. Stable scattered hepatic lesions. Represent benign etiology such as vascular shunting and hemangi yovana in the left hepatic lobe. 4. Hepatic steatosis. 5. Similar mild splenomegaly 6. Trace bilateral pleural effusions.
== END | disposition home or self-care (01) ==
LOC: RADMRIMAIN 08:44
PROVIDERS: ATTEND Family Medicine
DX: K76.0 Fatty (change of) liver, not elsewhere classified (principal); D18.03 Hemangioma of intra-abdominal structures; J90 Pleural effusion, not elsewhere classified; K76.89 Other specified diseases of liver; R16.1 Splenomegaly, not elsewhere classified; R74.8 Abnormal levels of other serum enzymes; Z90.49 Acquired absence of other specified parts of digestive tract
CPT/HCPCS: 74183; A9585

== ENCOUNTER → 2023-11-07 | Outpatient (CLI) | payer MEDICARE, BC ==
--- NOTE | 2023-11-09 09:02 | MM ---
Reason for Exam: Screening (asymptomatic). Last screening mammogram was performed 12 month(s) ago. Indicated Problems: Pain of the right side (Global) for 1 Year(s) : off and on. Patient History: Menarche at age 12. Patient has no children. Left ovary removed at age 30. Right ovary removed at age 30. Hysterectomy at age 30. Postmenopausal. Other cancer, age 53. Breast cancer, left, age 67. Estrogen for 29 years from age 30 until age 59. 2012, Benign Ultrasound-Guided Core Biopsy on the left side. 05/2014, Benign Excisional Biopsy on the right side. 2015, Benign Excisional Biopsy on the right side. Lumpectomy on the Left side. Malignant Core Biopsy. 05/06/2017, Benign Core Biopsy on the right side. Chemotherapy. Radiation Therapy, left. Maternal cousin had breast cancer, age 34. Maternal aunt had breast cancer, age 60. Maternal cousin had breast cancer, age 35. Sister had breast cancer, age 52. Prior Study Comparison: 10/31/2020 Bilateral Diagnostic Mammogram, [facility]. 11/02/2021 Bilateral MG 3D diag mammo w/cad KATINA, [facility]. 11/03/2022 Bilateral MG 3D screening mammo w/cad, [facility]. Tissue Density: The breasts are heterogeneously dense, which may obscure small masses. Findings: Analyzed By CAD. There is no suspicious group of microcalcifications or new suspicious mass in either breast. Overall Assessment: Benign, BI-RAD 2 Management: Screening Mammogram of both breasts in 1 year. . Patient should continue monthly self-breast exams. A clinical breast exam by your physician is recommended on an annual basis. This exam should not preclude additional follow-up of suspicious palpable abnormalities. Note on Juliane scores and lifetime risk: 1. A Juliane score greater than 3% is considered moderate risk. If this is the case, consider specialist referral to assess eligibility for a risk reducing agent. 2. If overall lifetime risk for the development of breast cancer is 20% or higher, the patient may qualify for future screening with alternating mammogram and breast MRI. Electronically signed and approved by: Jose Ramon Howard M.D. Radiologis
== END | disposition home or self-care (01) ==
LOC: RADMAMWWP 10:52
PROVIDERS: ATTEND Internal Medicine Hematology & Oncology
DX: Z12.31 Encounter for screening mammogram for malignant neoplasm of breast (principal); R92.333 Mammographic heterogeneous density, bilateral breasts; Z78.0 Asymptomatic menopausal state; Z80.3 Family history of malignant neoplasm of breast
CPT/HCPCS: 77063; 77067

== ENCOUNTER → 2024-02-28 | Outpatient (CLI) | payer MEDICARE, BC ==
--- NOTE | 2024-02-28 15:54 | US ---
EXAMINATION TYPE: US thyroid st tissue head/neck DATE OF EXAM: 02/28/2024 COMPARISON: NONE CLINICAL INDICATION: Female, 73 years old with history of K11.20 SIALOADENITIS; right facial swelling , intermittent x 2 years TECHNIQUE: Grayscale imaging the right carotid area. FINDINGS: scanned area of concern, right parotid, no significant abnormality by ultrasound at this t nancy Right gland appears within normal limits. No lymphadenopathy or mass identified. No organizing fluid collection. Can't IMPRESSION: In the area of concern there is no evidence for organizing fluid collection, lymphadenopathy or mass. [facility], , 02/28/2024 3:52 PM
== END | disposition home or self-care (01) ==
LOC: RADUSWWP 14:49
PROVIDERS: ATTEND Family Medicine
DX: K11.20 Sialoadenitis, unspecified (principal)
CPT/HCPCS: 76536

== ENCOUNTER → 2024-04-19 | Outpatient (CLI) | payer MEDICARE, BC ==
--- NOTE | 2024-04-19 08:42 | US ---
EXAMINATION TYPE: US abdomen complete DATE OF EXAM: 04/19/2024 COMPARISON: Correlation MRI 06/20/2023 CLINICAL INDICATION: Female, 73 years old with history of R74.01 ELEVATION OF LEVELS OF LIVER TRANSAM INASE L; Abnormal labs. Hx of enlarged spleen per patient. TECHNIQUE: Grayscale and color Doppler imaging of the abdomen was performed. FINDINGS: EXAM MEASUREMENTS: Liver Length: 15.8 cm CBD: 0.7 cm, color Doppler imaging was utilized to isolate the common bile duct for measurement. Spleen: 14.3 cm Right Kidney: 10.4 x 3.8 x 3.7 cm Left Kidney: 9.7 x 3.5 x 4.3 cm Pancreas: Only a small portion of the pancreatic head and neck are seen. Remainder is obscured by ham wel gas shadowing. Liver: Left lobe anterior hypoechoic lesion = 1.1 x 1.0 x 0.8 cm Gallbladder: Surgically absent Evidence for sonographic Culver's sign: neg CBD: wnl Spleen: Enlarged in size Right Kidney: No hydronephrosis or masses seen Left Kidney: No hydronephrosis or masses seen Upper IVC: wnl Abd Aorta: limited visualization due to bowel gas, no AAA seen with portions seen IMPRESSION: 1. At least moderate hepatic steatosis. 2. 1.1 cm lesion within the anterior left liver lobe is hypoechoic with through transmission favored to represent a hepatic hemangioma in the setting of background steatosis. Precautionary 6 month follo w-up ultrasound to reassess. 3. Status post cholecystectomy. Bile duct is dilated at 7 mm, probably due to chronic postcholecystec mily status and patient's age. Correlate with alkaline phosphatase and bilirubin levels. 4. Mild splenomegaly at 14.3 cm. [facility], Workstation: [email or web address], 04/19/2024 8:40 AM
== END | disposition home or self-care (01) ==
LOC: RADUSWWP 06:49
PROVIDERS: ATTEND Family Medicine
DX: K76.0 Fatty (change of) liver, not elsewhere classified (principal); D18.03 Hemangioma of intra-abdominal structures; R16.1 Splenomegaly, not elsewhere classified; R74.01 Elevation of levels of liver transaminase levels; Z90.49 Acquired absence of other specified parts of digestive tract
CPT/HCPCS: 76700

== ENCOUNTER → 2024-06-20 | Outpatient (CLI) | payer MEDICARE, BC ==
--- NOTE | 2024-06-27 12:16 | BMR ---
EXAM DATE: 06/20/2024 EXAM DESCRIPTION: MRI-Breast Bilat (W/WO Contrast) INDICATION: Bilateral breast cancer, follow-up to previous MRI COMPARISON: PRIOR MRIs: 06/13/2023, 05/31/2022. Correlation to mammograms: None available . Correlation to ultrasound: None available. CONTRAST: 8 cc Gadavist IV gadolinium contrast TECHNIQUE: Multiplanar multisequence MR imaging of both breasts was performed with a dedicated breast coil. Images were obtained before and after administration of IV gadolinium, using the standard breast mass protocol. Computer aided detection was utilized for interpretation. FINDINGS: LMP: Postmenopausal General breast composition: The breast is heterogeneously dense Background parenchymal enhancement: Marked RIGHT BREAST: The T2 weighted series shows no areas of abnormal signal intensity. Review of the dynamic series shows marked background enhancement, stable to prior examinations. No area more suspicious than any other. LEFT BREAST: The T2 weighted series shows no areas of abnormal signal intensity. Review of the dynamic series shows stable focus at 9 o'clock. No suspicious enhancement.. LYMPH NODES: There is no evidence of internal mammary or axillary adenopathy. IMPRESSION: RIGHT BREAST: No MR evidence of malignancy. LEFT BREAST: No MR evidence of malignancy. OVERALL ASSESSMENT -- BI-RADS 2: Benign MTDD
== END | disposition home or self-care (01) ==
LOC: RADMRIMAIN 11:52
PROVIDERS: ATTEND Internal Medicine Hematology & Oncology
DX: C50.412 Malignant neoplasm of upper-outer quadrant of left female breast (principal); Z78.0 Asymptomatic menopausal state
CPT/HCPCS: C8908; A9585; 77049

== ENCOUNTER 2024-07-18 06:19 | Day surgery (SDC) | payer MEDICARE, BC ==
[~2024-07-18 06:19] MED LIST changes: -ACETAMINOPHEN TAB 500 MG TAB PO PRN; -DEXAMETHASONE SOD PHOSPHATE 4 MG/ML 1 ML VIAL IV ONE; -HEPARIN SODIUM,PORCINE 5,000 UNIT/ML 1 ML VIAL SQ PRN; -HYDROmorphone 0.5 MG/0.5 ML SYRINGE IVP PRN; -LIDOCAINE 1% (10MG/ML) FOR IV START INTRADERMA PRN; -ONDANSETRON 4 MG/2 ML VIAL IVP ONE; -ONDANSETRON 4 MG/2 ML VIAL IVP PRN; +TETRACAINE 0.5% OPHTH (PF) DROPS 4 ML BTL OP PRN; -droPERidol 5 MG/2 ML VIAL IVP ONE
[2024-07-18] MEDS: CYCLOPENTOLATE 1% OPHTH SOLN 2 ML BTL OP PRN (06:52)
[2024-07-18 06:55] VITALS: TEMP 97.3
[2024-07-18] MEDS: PHENYLEPHRINE 2.5% OPHTH DRP 2ML OP PRN (06:55)
[2024-07-18 07:03] LABS: Glucose,Whole Blood 118 mg/dL (70-110)
[2024-07-18] MEDS: IV FLUID CONTINUATION 1,000 ML IV ONE ×2 (07:08→07:29)
[2024-07-18] MEDS ORDERED: MIDAZOLAM 2 MG/2 ML VIAL ONE (07:26)
[2024-07-18] MEDS: EPINEPHrine (PF) 0.3 ML in BALANCED SALT IRRIG SOLN COMB2 500 ML IRRIGATION ONE (07:48)
[2024-07-18] MEDS: MOXIFLOXACIN HCL 0.5% DROPS 3 ML BTL OP PRN (07:51)
[2024-07-18] MEDS: TIMOLOL 0.5% OPHTH DROPS 5 ML BTL OP PRN (07:51)
[2024-07-18] MEDS: HYALURONATE SODIUM INTRAOCULAR 1 EACH SYRINGE (12MG/ML) INTRAOCULA ONE (07:51)
[2024-07-18] MEDS: LIDOCAINE 1% (PF) 10MG/ML VIAL SQ ONE (07:52)
[2024-07-18] MEDS: BALANCED SALT IRRIG SOLN COMB2 15 ML IRRIG.SOLN INTRAOCULA ONE (07:52)
--- NOTE | 2024-07-18 07:58 | P.OP ---
Date of Procedure: 07/18/24 Preoperative Diagnosis: NS & CS & PSC Postoperative Diagnosis: same Procedure(s) Performed: PIOL, OD Implants: [id number] 23.50 Anesthesia: MAC Surgeon: Marky Norris Pathology: none sent Condition: stable Disposition: same day Indications for Procedure: blurry vision Operative Findings: no complications
[2024-07-18 08:22] VITALS: BP 126/53; PULSE 87; RESP 16
--- NOTE | 2024-07-19 01:05 | OP ---
OPERATIVE REPORT DATE OF SERVICE : 07/18/2024 PREOPERATIVE DIAGNOSIS: Nuclear sclerosis, cortical sclerosis, posterior subcapsular cataract, right eye. POSTOPERATIVE DIAGNOSIS: Nuclear sclerosis, cortical sclerosis, posterior subcapsular cataract, right eye. OPERATION: Phacoemulsification of cataract and intraocular lens implant of the right eye. ESTIMATED BLOOD LOSS: Zero. SPECIMEN TAKEN: None. NARRATIVE: After obtaining the appropriate consent, the patient was brought to the operating room where the patient was placed under cardiac monitoring and prepped and draped in the usual sterile manner. At the 11 o'clock position, a 15-degree super sharp blade was used to create a paracentesis followed by instillation of 1% Xylocaine MPF 50:50 mix with BSS into the anterior chamber. This was followed by Amvisc viscoelastic to stabilize the anterior chamber. At the 9 o'clock position a self-sealing corneal flap incision was created using 2.8 mm linda keratome. A cystotome was used to initiate a continuous tear capsulorrhexis which was completed with the Utrata forceps. A Binkhorst cannula was used to hydrodissect the lens nucleus followed by hydrodelineation. Phacoemulsification of the lens was performed utilizing phacochop in 10.49 seconds at 13.9% power. The remaining cortical material was removed using the irrigation aspiration mode followed by additional 1% Xylocaine MPF into the anterior chamber followed by viscoelastic to stabilize the capsular bag. A Juan David and Juan David DCB00 23.5 diopters posterior chamber lens was placed into the capsular bag without difficulty. The remaining viscoelastic material was removed from the anterior chamber with the irrigation/aspiration. Balanced salt solution was used to normalize the intraocular pressure. The incision was checked for watertight integrity. The patient then received 2 drops of 0.5% timolol followed by 2 drops Vigamox, was lightly patched and shielded in the usual manner. There were no complications from the procedure. The patient tolerated the procedure well and was returned to recovery in good condition. MMODL / IJN: [id number] /
== END 2024-07-18 08:41 | disposition home or self-care (01) ==
LOC: OR 06:19
PROVIDERS: ATTEND Ophthalmology
DX: H25.11 Age-related nuclear cataract, right eye (principal); H25.011 Cortical age-related cataract, right eye; H25.041 Posterior subcapsular polar age-related cataract, right eye; E11.9 Type 2 diabetes mellitus without complications; I10 Essential (primary) hypertension
CPT/HCPCS: 66984; V2632; J2250; J0171; J2003

== ENCOUNTER 2024-08-01 06:14 | Day surgery (SDC) | payer MEDICARE, BC ==
[2024-07-27 16:15] VITALS: BMI 30.9
[~2024-08-01 06:14] MED LIST changes: -LACTATED RINGERS 1,000 ML IV SCH; +LIDOCAINE 1% (10MG/ML) FOR IV START INTRADERMA PRN
[2024-08-01] MEDS: CYCLOPENTOLATE 1% OPHTH SOLN 2 ML BTL OP PRN (06:58)
[2024-08-01] MEDS: PHENYLEPHRINE 2.5% OPHTH DRP 2ML OP PRN (07:03)
[2024-08-01] MEDS: IV FLUID CONTINUATION 1,000 ML IV ONE (07:18)
[2024-08-01 07:21] LABS: Glucose,Whole Blood 109 mg/dL (70-110)
[2024-08-01] MEDS: LACTATED RINGERS 1,000 ML IV SCH (07:25)
[2024-08-01] MEDS ORDERED: MIDAZOLAM 2 MG/2 ML VIAL ONE (07:26)
[2024-08-01 07:33] VITALS: TEMP 97.9
[2024-08-01] MEDS: BALANCED SALT IRRIG SOLN COMB2 15 ML IRRIG.SOLN INTRAOCULA ONE (07:39)
[2024-08-01] MEDS: HYALURONATE SODIUM INTRAOCULAR 1 EACH SYRINGE (12MG/ML) INTRAOCULA ONE (07:39)
[2024-08-01] MEDS: LIDOCAINE 1% (PF) 10MG/ML VIAL MISCELLANE ONE (07:40)
[2024-08-01] MEDS: EPINEPHrine (PF) 0.3 ML in BALANCED SALT IRRIG SOLN COMB2 500 ML IRRIGATION ONE (07:47)
[2024-08-01] MEDS: TIMOLOL 0.5% OPHTH DROPS 5 ML BTL OP PRN (07:48)
[2024-08-01] MEDS: MOXIFLOXACIN HCL 0.5% DROPS 3 ML BTL OP PRN (07:48)
--- NOTE | 2024-08-01 08:02 | P.OP ---
Date of Procedure: 08/01/24 Preoperative Diagnosis: NS & CS & PSC Postoperative Diagnosis: same Procedure(s) Performed: PIOL, OS Implants: DCB00 22.00 Anesthesia: MAC [employer] #1: Marky Norris Pathology: none sent Condition: stable Disposition: same day Indications for Procedure: blurry vision Operative Findings: no complications
[2024-08-01 08:22] VITALS: BP 141/84; PULSE 78; RESP 16
--- NOTE | 2024-08-01 20:40 | OP ---
OPERATIVE REPORT DATE OF SERVICE : 08/01/2024 PREOPERATIVE DIAGNOSIS: Nuclear sclerosis, cortical sclerosis, posterior subcapsular cataract, left eye. POSTOPERATIVE DIAGNOSIS: Nuclear sclerosis, cortical sclerosis, posterior subcapsular cataract, left eye. OPERATION: Phacoemulsification of cataract and interocular lens implant, left eye. ESTIMATED BLOOD LOSS: Zero. SPECIMEN TAKEN: None. NARRATIVE: After obtaining the appropriate consent, the patient was brought to the operating room where the patient was placed under cardiac monitoring and prepped and draped in the usual sterile manner. At the 5 o'clock position, a 15-degree super sharp blade was used to create a paracentesis followed by instillation of 1% Xylocaine MPF 50:50 mix with BSS into the anterior chamber. This was followed by Amvisc viscoelastic to stabilize the anterior chamber. At the 3 o'clock position a self-sealing corneal flap incision was created using 2.8 mm linda keratome. A cystotome was used to initiate a continuous tear capsulorrhexis which was completed with the Utrata forceps. A Binkhorst cannula was used to hydrodissect the lens nucleus followed by hydrodelineation. Phacoemulsification of the lens was performed utilizing phacochop in 13.62 seconds at 12.1% power. The remaining cortical material was removed using the irrigation aspiration mode followed by additional 1% Xylocaine MPF into the anterior chamber followed by viscoelastic to stabilize the capsular bag. A Juan David and Juan David DCB00 22.0 diopters posterior chamber lens was placed into the capsular bag without difficulty. The remaining viscoelastic material was removed from the anterior chamber with the irrigation/aspiration. Balanced salt solution was used to normalize the intraocular pressure. The incision was checked for watertight integrity. The patient then received 2 drops of 0.5% timolol followed by 2 drops Vigamox, was lightly patched and shielded in the usual manner. There were no complications from the procedure. The patient tolerated the procedure well and was returned to recovery in good condition. MMODL / IJN: [id number] /
== END 2024-08-01 08:37 | disposition home or self-care (01) ==
LOC: OR 06:14
PROVIDERS: ATTEND Ophthalmology
DX: H25.12 Age-related nuclear cataract, left eye (principal); H25.012 Cortical age-related cataract, left eye; H25.042 Posterior subcapsular polar age-related cataract, left eye; H52.03 Hypermetropia, bilateral; H52.223 Regular astigmatism, bilateral; H31.011 Macula scars of posterior pole (postinflammatory) (post-traumatic), right eye; H52.4 Presbyopia; K21.9 Gastro-esophageal reflux disease without esophagitis; E11.9 Type 2 diabetes mellitus without complications; I10 Essential (primary) hypertension; M19.90 Unspecified osteoarthritis, unspecified site; G43.909 Migraine, unspecified, not intractable, without status migrainosus; L23.3 Allergic contact dermatitis due to drugs in contact with skin; Z98.49 Cataract extraction status, unspecified eye; Z90.49 Acquired absence of other specified parts of digestive tract; Z90.710 Acquired absence of both cervix and uterus; Z96.1 Presence of intraocular lens; Z48.810 Encounter for surgical aftercare following surgery on the sense organs; Z88.0 Allergy status to penicillin; Z88.8 Allergy status to other drugs, medicaments and biological substances; Z88.1 Allergy status to other antibiotic agents; Z79.4 Long term (current) use of insulin; Z79.899 Other long term (current) drug therapy
CPT/HCPCS: 66984; V2632; J2250; J0171; J2003

== ENCOUNTER → 2024-11-07 | Outpatient (CLI) | payer MEDICARE, BC ==
--- NOTE | 2024-11-07 17:18 | MM ---
Reason for Exam: Screening (asymptomatic). Last screening mammogram was performed 12 month(s) ago. Patient History: Menarche at age 12. Patient has no children. Left ovary removed at age 30. Right ovary removed at age 30. Hysterectomy at age 30. Postmenopausal. Other cancer, age 53. Breast cancer, left, age 67. Estrogen for 29 years from age 30 until age 59. 2012, Benign Ultrasound-Guided Core Biopsy on the left side. 05/2014, Benign Excisional Biopsy on the right side. 2015, Benign Excisional Biopsy on the right side. Lumpectomy on the Left side. Malignant Core Biopsy. 05/06/2017, Benign Core Biopsy on the right side. Chemotherapy. Radiation Therapy, left. Maternal cousin had breast cancer, age 34. Maternal aunt had breast cancer, age 60. Maternal cousin had breast cancer, age 35. Sister had breast cancer, age 52. Prior Study Comparison: 11/02/2021 Bilateral MG 3D diag mammo w/cad [facility]. 11/03/2022 Bilateral MG 3D screening mammo w/cad, [facility]. 11/07/2023 Bilateral MG 3D screening mammo w/cad, [facility]. Tissue Density: The breasts are heterogeneously dense, which may obscure small masses. Findings: Analyzed By CAD. Postsurgical and posttreatment changes left breast. Associated fat necrosis calcifications at the excision site. 2 microclips right breast from prior biopsies. There is chronic nodularity redemonstrated on the right. Other scattered benign round and vascular calcifications again noted. There is no suspicious group of microcalcifications or new suspicious mass in either breast. Overall Assessment: Benign, BI-RAD 2 Management: Screening Mammogram of both breasts in 1 year. Patient should continue monthly self-breast exams. A clinical breast exam by your physician is recommended on an annual basis. This exam should not preclude additional follow-up of suspicious palpable abnormalities. [facility], , 11/07/2024 5:15 PM. Electronically signed and approved by: Valery Bergeron M.D. Radiologist
== END | disposition home or self-care (01) ==
LOC: RADMAMWWP 13:26
PROVIDERS: ATTEND Internal Medicine Hematology & Oncology
DX: Z12.31 Encounter for screening mammogram for malignant neoplasm of breast (principal); C50.412 Malignant neoplasm of upper-outer quadrant of left female breast; K21.9 Gastro-esophageal reflux disease without esophagitis; Z15.01 Genetic susceptibility to malignant neoplasm of breast; Z71.3 Dietary counseling and surveillance; R92.333 Mammographic heterogeneous density, bilateral breasts; R92.1 Mammographic calcification found on diagnostic imaging of breast; Z80.3 Family history of malignant neoplasm of breast; Z78.0 Asymptomatic menopausal state; Z85.3 Personal history of malignant neoplasm of breast
CPT/HCPCS: 77063; 77067

== ENCOUNTER → 2024-11-08 | Outpatient (CLI) | payer MEDICARE, BC ==
--- NOTE | 2024-11-08 07:30 | US ---
EXAMINATION TYPE: US liver DATE OF EXAM: 11/08/2024 COMPARISON: Abdominal ultrasound 04/19/2024, MR liver 06/20/2023, CT abdomen and pelvis 05/11/2023 CLINICAL INDICATION: Female, 74 years old with history of R74.8 ABNORMAL LEVELS OF OTHER SERUM ENZYME S; elevated liver labs, no symptoms, mildred 2022 TECHNIQUE: Grayscale and color Doppler imaging of the right upper quadrant. FINDINGS: EXAM MEASUREMENTS: Liver Length: 20.0 cm Gallbladder Wall: Surgically absent CBD: 0.7 cm, color Doppler imaging was utilized to isolate the common bile duct for measurement. Right Kidney: 9.3 x 4.0 x 4.8 cm Pancreas: wnl Liver: enlarged and difficult to penetrate, hypoechoic lesion within left lobe, probable fatty liver Gallbladder: Surgically absent CBD: wnl Right Kidney: wnl The pancreas is within normal limits. The liver is enlarged with diffuse increased echogenicity and d ifficult to penetrate. There is a hypoechoic 1.1 x 1.0 x 1.3 cm lesion within the anterior left hepat ic lobe. No overt surface nodularity of the liver. Gallbladder is surgically absent. Common bile duct is within normal limits. Right kidney demonstrates no hydronephrosis, shadowing calculus or solid ma ss. IMPRESSION: 1. Hepatomegaly with diffuse fatty infiltration. Stable left hepatic lobe 1.3 cm hypodense lesion pre viously characterized as a benign hemangioma. 2. Postcholecystectomy changes. [facility], , 11/08/2024 7:27 AM
== END | disposition home or self-care (01) ==
LOC: RADUSWWP 06:38
PROVIDERS: ATTEND Family Medicine
DX: K76.0 Fatty (change of) liver, not elsewhere classified (principal); R16.0 Hepatomegaly, not elsewhere classified; R74.8 Abnormal levels of other serum enzymes; Z90.49 Acquired absence of other specified parts of digestive tract
CPT/HCPCS: 76705